=== PATIENT | female | born 1990 | race Caucasian/White ===

== ENCOUNTER → 2017-06-25 15:30 | Outpatient (CLI) | payer OTHER, SELFPAY ==
[2017-06-25 16:06] LABS: Absolute Lymphocyte Count 2.26 X10^3/ul (0.83-4.51); Absolute Neutrophil Count 11.4 X10^3/uL (2.0-7.7); Basophil# 0.04 X10^3/uL; Basophil% 0.3 % (0-1); Eosinophil# 0.36 X10^3/uL; Eosinophils% 2.4 % (0-5); Hemoglobin 13.2 g/dl (12.0-15.0); Lymphocyte # 2.26 X10^3/ul (4.0); Lymphocyte % 15.1 % (19-41); Mean Corp Hgb Conc 33.8 g/gl (32-36); Mean Corpuscular Hgb 29.1 pg (27.0-32.0); Mean Corpuscular Volume 86.1 fL (81-99); Mean Platelet Vol. 10.1 fl (6.2-12.0); Monocyte# 0.84 X10^3/uL; Monocyte% 5.6 % (0-10); Neutrophil # 11.43 X10^3/uL (2.7-7.7); Neutrophil % 76.3 % (47-70); Platelet Count 342 K/mm3 (150-450); RBC Distribution Width CV 13.3 % (11.6-14.6); RBC Distribution Width SD 40.8 fl (35.1-43.9); Red Blood Count 4.53 M/mm3 (4.2-5.4)
[2017-06-25 16:12] LABS: POSITIVE COUNT NO; POSITIVE DIFFERENTIAL NO; POSITIVE MORPHOLOGY NO
[2017-06-25 16:26] LABS: Amphetamine Urine VISTA NEGATIVE (<1000 ng/mL); Barbiturate Urine VISTA NEGATIVE (< 200 ng/mL); Benzodiazepine Urine VISTA NEGATIVE (< 200 ng/mL); Cocaine Urine VISTA NEGATIVE (< 300 ng/mL); Ecstacy Urine VISTA NEGATIVE (< 500 ng/mL); Methadone Urine VISTA NEGATIVE (< 300 ng/mL); PCP Urine VISTA NEGATIVE (< 25 ng/mL); THC Urine VISTA NEGATIVE (< 50 ng/mL); Vista UDS pH Range 5
[2017-06-25 16:36] LABS: Color, Urine Yellow (Yellow); Glucose, Dipstick Normal (Normal); Ketone-Dipstick Negative (Negative); Leukocyte Esterase-Dipstick Negative /ul (Negative); Nitrite-Dipstick Negative (Negative); Occult Blood-Urine Negative /ul (Negative); Protein-Dipstick Negative (Negative); Urine Bilirubin Dipstick Negative (Negative); Urine Clarity Clear (Clear); Urine Urobilinogen Normal (Normal)
[2017-06-25 16:55] LABS: Thyroid Stim Hormone (TSH) 0.87 uIU/mL (0.358-3.74)
[2017-06-26 09:38] LABS: HIV - WCH Non-Reactive (Nonreactive)
[2017-06-27 13:24] LABS: HEPATITIS B SURFACE AG Negative (Negative); Hep C Antibodies <0.1 s/co ratio (0.0-0.9); Toxoplasma Gondii IgG < 3.0 IU/mL (0.0-7.1); Toxoplasma Gondii IgM < 3.0 AU/mL (0.0-7.9)
[2017-06-28 03:48] LABS: Prenatal RPR NONREACTIVE (NONREACTIVE)
== END ==
PROVIDERS: Visit Provider Obstetrics & Gynecology
DX: Z34.81 Encounter for supervision of other normal pregnancy, first trimester (principal); Z3A.00 Weeks of gestation of pregnancy not specified
CPT/HCPCS: 36415; 80307; 81002; 84443; 85025; 86703; 86762; 86777; 86778; 86803; 87340

== ENCOUNTER → 2017-08-19 16:34 | Outpatient (CLI) | payer OTHER, SELFPAY ==
[2017-08-19 17:29] LABS: Hematocrit 37.8 % (37-47); Hemoglobin 12.9 g/dl (12.0-15.0); Mean Corp Hgb Conc 34.1 g/gl (32-36); Mean Corpuscular Hgb 29.9 pg (27.0-32.0); Mean Corpuscular Volume 87.7 fL (81-99); Mean Platelet Vol. 10.3 fl (6.2-12.0); Platelet Count 315 K/mm3 (150-450); RBC Distribution Width CV 12.8 % (11.6-14.6); RBC Distribution Width SD 39.9 fl (35.1-43.9); Red Blood Count 4.31 M/mm3 (4.2-5.4); Scan Indicated on CBC? Y/N NO
== END ==
LOC: LABSPEC 16:35 → WOBLAB 16:36
PROVIDERS: Visit Provider Obstetrics & Gynecology
DX: D72.829 Elevated white blood cell count, unspecified (principal)
CPT/HCPCS: 36415; 85027

== ENCOUNTER → 2017-10-28 16:18 | Outpatient (CLI) | payer OTHER, SELFPAY ==
--- NOTE | 2017-10-28 16:18 | DT_ITS ---
This patient was seen during an EMR downtime October 21, 2017 - October 28, 2017. This patient may have a combination of paper and electronic documentation or all paper documentation. All documentation is viewable within the e-chart portion of [facility] for each patient visit.
[2017-10-28 17:55] LABS: Hematocrit 34.9 % (37-47); Hemoglobin 11.6 g/dl (12.0-15.0); Mean Corp Hgb Conc 33.2 g/gl (32-36); Mean Corpuscular Hgb 29.8 pg (27.0-32.0); Mean Corpuscular Volume 89.7 fL (81-99); Mean Platelet Vol. 10.1 fl (6.2-12.0); Platelet Count 299 K/mm3 (150-450); RBC Distribution Width CV 12.9 % (11.6-14.6); RBC Distribution Width SD 41.8 fl (35.1-43.9); Red Blood Count 3.89 M/mm3 (4.2-5.4); White Blood Count 18.3 K/mm3 (4.4-11.0)
[2017-10-28 18:02] LABS: Scan Indicated on CBC? Y/N NO
[2017-10-28 18:08] LABS: Glucose Challenge Gest 1H 50g 94 mg/dL (70-140)
== END ==
PROVIDERS: Visit Provider Obstetrics & Gynecology
DX: Z34.83 Encounter for supervision of other normal pregnancy, third trimester (principal)
CPT/HCPCS: 36415; 82950; 85027

== ENCOUNTER → 2017-11-11 10:00 | Outpatient (CLI) | payer OTHER, SELFPAY ==
[2017-11-11 11:16] LABS: Absolute Lymphocyte Count 1.64 X10^3/ul (0.83-4.51); Basophil# 0.01 X10^3/uL; Basophil% 0.1 % (0-1); Eosinophil# 0.21 X10^3/uL; Eosinophils% 1.7 % (0-5); Hematocrit 35.1 % (37-47); Hemoglobin 11.7 g/dl (12.0-15.0); Lymphocyte # 1.64 X10^3/ul (4.0); Lymphocyte % 12.9 % (19-41); Mean Corp Hgb Conc 33.3 g/gl (32-36); Mean Corpuscular Hgb 29.7 pg (27.0-32.0); Mean Corpuscular Volume 89.1 fL (81-99); Mean Platelet Vol. 10.3 fl (6.2-12.0); Monocyte# 0.76 X10^3/uL; Neutrophil # 10.04 X10^3/uL (2.7-7.7); Platelet Count 273 K/mm3 (150-450); RBC Distribution Width CV 12.6 % (11.6-14.6); RBC Distribution Width SD 40.6 fl (35.1-43.9); Red Blood Count 3.94 M/mm3 (4.2-5.4); White Blood Count 12.7 K/mm3 (4.4-11.0)
[2017-11-11 11:17] LABS: POSITIVE COUNT NO; POSITIVE DIFFERENTIAL NO; POSITIVE MORPHOLOGY NO
== END ==
PROVIDERS: Visit Provider Obstetrics & Gynecology
DX: Z34.83 Encounter for supervision of other normal pregnancy, third trimester (principal)
CPT/HCPCS: 36415; 85025

== ENCOUNTER → 2017-12-16 16:03 | Outpatient (CLI) | payer OTHER, SELFPAY ==
[2017-12-16 17:43] LABS: Hemoglobin 11.9 g/dl (12.0-15.0); Mean Corpuscular Hgb 30.4 pg (27.0-32.0); Mean Corpuscular Volume 89.3 fL (81-99); Mean Platelet Vol. 10.8 fl (6.2-12.0); Platelet Count 294 K/mm3 (150-450); RBC Distribution Width CV 12.3 % (11.6-14.6); RBC Distribution Width SD 39.2 fl (35.1-43.9); Red Blood Count 3.92 M/mm3 (4.2-5.4)
[2017-12-16 17:48] LABS: Scan Indicated on CBC? Y/N NO
[2017-12-16 18:13] LABS: Protein, Urine (Random) 26.5 mg/dL (<11.9)
[2017-12-16 18:13] LABS: AST(SGOT) 15 U/L (15-37); Alanine Aminotransfer ALT/SGPT 26 U/L (13-56); Albumin, Serum 2.8 g/dL (3.2-5.0); Alkaline Phosphatase 155 U/L (45-117); Bilirubin, Direct 0.06 mg/dL (0.00-0.30); Globulin 4.2 g/dL (2.2-4.2)
[2017-12-16 18:55] LABS: Group B Strep DNA By PCR POSITIVE (Negative); Probe Check PASS
== END ==
PROVIDERS: Visit Provider Obstetrics & Gynecology
DX: Z36.85 Encounter for antenatal screening for Streptococcus B (principal)
CPT/HCPCS: 36415; 80076; 82570; 84156; 85027; 87653

== ENCOUNTER 2018-01-21 07:40 | Inpatient (IN) | payer BC, SELFPAY ==
[2018-01-21 07:11] VITALS: BMI 37.3
[2018-01-21] MEDS: Lactated Ringers 1,000 ML 50 ML IV ×3 (08:40→20:06)
[2018-01-21 08:58] LABS: Hemoglobin 11.9 g/dl (12.0-15.0); Mean Corpuscular Hgb 31.3 pg (27.0-32.0); Mean Corpuscular Volume 89.5 fL (81-99); Mean Platelet Vol. 10.6 fl (6.2-12.0); Platelet Count 260 K/mm3 (150-450); RBC Distribution Width CV 12.8 % (11.6-14.6); RBC Distribution Width SD 41.4 fl (35.1-43.9); Scan Indicated on CBC? Y/N NO; White Blood Count 15.8 K/mm3 (4.4-11.0)
[2018-01-21 09:07] LABS: AST(SGOT) 13 U/L (15-37); Alanine Aminotransfer ALT/SGPT 21 U/L (13-56); EST Glomerular Filtration Rate 128 mL/min (>60); Est Glom Filt Rate - Afr Amer 155 mL/min (>60); Uric Acid 5.1 mg/dL (2.6-6.0)
[2018-01-21 09:10] LABS: LDH 162 U/L (84-246)
[2018-01-21 09:12] LABS: Protein, Urine (Random) 25.1 mg/dL (<11.9); Protein:Creat Ratio 298 mg/g CRE (0-200)
[2018-01-21 09:19] LABS: Partial Thromboplast Time 24.8 Seconds (24.1-36.2); Prothrombin Time (Protime)PT. 13.5 SECONDS (11.7-14.9)
[2018-01-21] MEDS: Oxytocin 30 units/NS 500 ml 30 UNITS/500 ML IV.SOLN IV (10:25)
--- NOTE | 2018-01-21 11:58 | PCM.PN.BLA ---
Progress Note LABOR PROGRESS NOTE Angela notes contractions have intensified with pitocin. She otherwise is without complaints. AVSS, ambulating GEN - NAD, AAO x 3 FHR 130, moderate variability, + accelerations, no decelerations TOCO 4-5/10 min SVE 3/60/-2 per RN exam approximately 10am A/P: 28yo G1 @ 40 4/7wga in latent labor with gestational hypertension, Cat I FHR -Labs reviewed and wnl, presentation c/w gestational HTN -Pitocin started given prior exam unchanged. Continue as tolerated by mother and fetus. -Continue PCN for GBS ppx -Plan for amniotomy if no cervical change 4 hours after initial PCN dosing. -Maternal and statuses overall reassuring
[2018-01-21] MEDS: Nalbuphine 10 MG/ML Ampul IV (15:02)
[2018-01-21] MEDS: fentaNYL-bupivacaine (epidural) 100 ML BAG EPIDURAL (17:56)
--- NOTE | 2018-01-21 17:59 | PCM.PN.BLA ---
Progress Note 40 4/7 wk EGA PIH Induction Epidural placed, More comfortable now. EFM 120- 130 avg variability. Accels noted category I tracing. Ucs q 1-4 mins CX: 4 cm prior to epidural A/P: 40 4/7 wk EGA . Induction for PIH. Continue pitocin Watch progress, tolerance of labor.
[2018-01-21] MEDS: Ondansetron 4 MG/2 ML Vial IV (23:01)
--- NOTE | 2018-01-22 | PLAC_PTH ---
PATIENT: MOSHE SEVERINO LOC: [facility] U#:[id number] AGE/SX: 28/F ROOM: [facility] RE01/21/[address]: Dr. Desirae Berger MD : 1990 BED: 1 DIS: 01/24/2018 SPEC #: [id number] RECD: 01/22/18 13:01 STATUS: PATRICIO REDaisy #: [id number] JOSE: 01/22/18 00:[address]: Desirae Collazo DEPT: SURGICAL PATHOLOGY RECD BY: Ash Mo ENTERED: 01/22/18 13:01 SP TYPE: PLACENTA OTHR DR: Wendy Shea PA-C Tissues: Placenta, NOS Procedures: Surgery Specimen Level V HEADER OPERATION: Vaginal delivery PRE-OP DIAGNOSIS: Thick meconium postdates TISSUE SUBMITTED: Placenta MICROSCOPIC DIAGNOSIS Goode placenta (484 gm): Umbilical cord ? trivascular with no inflammation. Placental membranes ? pigmented macrophages consistent with meconium staining Placental disc ? Harjit-Vamshi change and intervillous congestion. AM:felix 01/24/18 MICROSCOPIC DESCRIPTION Slides are reviewed. GROSS DESCRIPTION SPECIMEN: PLACENTA / CLINICAL INFORMATION: A. Weight: 3.163 kg B. Gestational Age: 40 weeks C. Sex: Female PLACENTAL WEIGHT (POST FIXATION): 484 gm PLACENTAL DIMENSIONS: 18 x 16 x 3 cm PLACENTAL SHAPE: Usual ovoid PLACENTAL WEIGHT FOR GESTATIONAL AGE: Within 10-99th percentile MEMBRANES - Present A. Insertion: Marginal B. Site of rupture from edge: 2 cm from edge of placental disc C. Color of membrane: Goodman-hanson D. Abnormalities: None UMBILICAL CORD ? Present. end is inked black. A. Color: Goodman-hanson B. Insertion: Eccentric C. Length: 47.5 cm D. Diameter: 1.5 cm E. Number of vessels: Three F. Abnormalities: None PLACENTAL DISC - Present A. Color of surface: Goodman-hanson B. surface abnormalities: None C. Maternal cotyledons: Intact with minimal tears D. Attached retro placental clot: No clot E. Cut surface: Dark red and spongy F. Lesions: None G. Separate clot: Absent SECTIONS SUBMITTED: 1. Membrane roll and umbilical cord ( end notched) 2. Placental disc, and maternal surfaces 3. Placental disc, and maternal surfaces 4. Placental disc, and maternal surfaces AM:felix 01/23/18 TC:5 CPT: 16391
[2018-01-22] MEDS: Lactated Ringers 1,000 ML 50 ML IV (01:58)
[2018-01-22] MEDS: Oxytocin 30 units/NS 500 ml 30 UNITS/500 ML IV.SOLN 334 UNITS IV (06:58)
--- NOTE | 2018-01-22 07:04 | PCM.OB.VAG ---
Vaginal Delivery 40 4/7 wk latent labor. PIH vs preeclampsia. Method of Induction: Pitocin, Amniotomy Medical Reason for Induction: Gestational Hypertension Amniotic Membrane Rupture Type: Artificial Amniotic Fluid Description: Clear Final TANVI: 01/17/18 Gestational age: 40 Weeks and 4 Days [place] doctor who attended delivery (if requested by OB): Christen Gannon Date of Procedure: 01/22/18 Pre-Operative Diagnosis: 40 4/7 wk latent labor, PIH Post-Operative Diagnosis: 40 5/7 wk , mild preeclampsia. Thick meconium Surgery/ Procedure Performed: Vacuum Assisted Vaginal Delivery - vacuum assisted descent with three pulls in green zone pressure. Intermittent FHT recovery. Spont vaginal delivery then over midline episiotomy. Type of Anesthesia: Epidural Description of Procedure: Vacuum assisted descent (three pulls in green zone) with full dilation, delgado cath in place and epidural in place. Kiwi vacuum used to assist descent 2/2 FHR in 80-90s. Intermittent recovery and scalp stim noted. Allowed continued pushing. Spont vaginal delivery then over midline episiotomy without extension. Head delivered MARTINEZ. Nuchal cord x one reduced. shoulders delivered easily. Thick meconium and end stage mec also noted. Baby to Dr. Bustillo and RT , nursery nurses for evaluation prior to skin to skin. delgado viable female Ap 9/9 PP exam; midline episiotomy repaired to hemostatic, intact with 3-0 Vicryl. no other lacerations noted Placenta thick mec staining noted. delivered by spont expulsion, expression 3V cord, otherwise normal appearing with mec staining. Intact with trailing membranes. EBL 350 cc Pt and infant tolerated delivery well. to recovery, stable condition Ray Silvio counts correct. Presentation: Vertex, MARTINEZ Placental Delivery Description: Spontaneous, Expressed Placenta Disposition: Routine to Lab Cord Vessel Description: 3 Vessels Nuchal Cord Compression: Without compression Cord Gases drawn per routine: ABG, VBG Cord Entanglement: Around neck x 1, loose Estimated Blood Loss: 350 Infant A gender: Female (1 minute): 9 (5 minute): 9 Episiotomy Description: Midline Laceration: None Medications given after delivery: IV Pitocin Complications: None
--- NOTE | 2018-01-22 07:15 | PCM.DCVAG ---
Discharge Diet: No Restrictions Discharge Activity: May Shower, May Take a Tub Bath May resume sexual activity in: 4-6 weeks Additional Activity Instructions:: Nothing in the vagina for 4-6 weeks. You may return to work/school in 6 weeks. Additional Instructions: If you experience any of the following, contact your healthcare provider. Bleeding that soaks a pad every hour for 2 hours Fever 100.4 or higher Unrelieved abdominal pain Problems urinating (including inability to urinate or burning while urinating). Visual changes Severe headache Flu-like symptoms Pain or redness in one of both of your breasts Pain, warmth, tenderness or swelling in your legs, especially the calf area Frequent nausea and vomiting Symptoms of depression or anxiety If you experience any of the following, call 911 or go to the nearest Emergency Room. Chest pain Problems breathing Seizure activity Partial or complete paralysis of a body part, slurred speech, weakness or drooping of the face, or a sudden inability to walk or hold your balance Allergies/Adverse Reactions: Allergies No Known Allergies Allergy (Verified 01/21/18 07:13) Medications to take at Discharge Aspirin [Aspirin, Baby] 81 mg PO DAILY@0800 01/21/18 Vit Calc,Iron,Folic [ Vitamins] 1 each PO DAILY 01/21/18 Please Follow Up With: Desirae Walton MD - [phone] When: Call to make an appointment with your doctor in 6 weeks. Primary Care Physician: Wendy Shea PA-C [Primary Care Provider] - Test Results: Test results from this visit will be discussed in further detail at your follow-up appointment, if applicable. Proposed Discharge Date: 01/24/18
[2018-01-22] MEDS: Oxytocin 30 units/NS 500 ml 30 UNITS/500 ML IV.SOLN 167 UNITS IV (07:28)
[2018-01-22] MEDS: Silver Nitrate (BKC) 1 EACH TOPICAL (07:42)
[2018-01-22] MEDS: Naproxen 250 MG Tablet PO ×2 (11:21→19:50)
[2018-01-22 11:33] VITALS: BP 138/86; PULSE 106; RESP 20; TEMP 36.7; O2SAT 97
--- NOTE | 2018-01-22 14:35 | NURSING ---
This nursing secretary reviewed the charting completed by Meggan Beltran and it is complete.
[2018-01-22] MEDS: Prenatal Vits Tablet 1 TABLET PO (15:34)
[2018-01-22] MEDS: Acetaminophen 500 MG Tablet PO (15:35)
[2018-01-22 16:00] VITALS: BP 138/88; PULSE 82; RESP 18; TEMP 36.2
[2018-01-22 20:50] VITALS: BP 134/85; PULSE 75; RESP 16; TEMP 36.4; O2SAT 97
[2018-01-23 00:05] VITALS: BP 124/71; PULSE 88; RESP 16; TEMP 36.6; O2SAT 94
[2018-01-23] MEDS: Acetaminophen 500 MG Tablet PO ×3 (00:08→18:26)
[2018-01-23 03:30] VITALS: BP 136/86; PULSE 83; RESP 18; TEMP 36.5; O2SAT 97
[2018-01-23] MEDS: Naproxen 250 MG Tablet PO ×3 (06:00→23:05)
[2018-01-23] MEDS: Senna/Docusate Sodium 1 Tablet PO (06:50)
[2018-01-23 08:18] VITALS: BP 138/92; PULSE 90; RESP 18; TEMP 36.5; O2SAT 97
--- NOTE | 2018-01-23 08:26 | PCM.PN.OB ---
Subjective: No issue overnight. She is sore, but doing well overall. OOB. Lower extremity swelling is improving. Denies headache, vision changes, shortness of breath. Objective: AVSS - Physical Exam General: Alert, Oriented x3, Cooperative, No apparent distress HEENT: Atraumatic, Normocephalic Lungs: Clear to auscultation, Normal air movement Cardiovascular: Regular rate, Regular Rhythm, Normal S1, Normal S2 Abdomen: Soft, Non Tender, Non-Distended, - - Fundus firm and nontender, lochia scant Extremities: No Calf Tenderness, - - +1 b/l LE edema Neurological: Neuro grossly intact Psych/Mental Status: Normal Affect, Appropriate, Alert and oriented to time, place, person, mood and affect Vital Signs Temp Pulse Resp BP Pulse Ox 97.7 F L 90 18 138/92 H 97 01/23/18 08:18 01/23/18 08:18 01/23/18 08:18 01/23/18 08:18 01/23/18 08:18 Oxygen Delivery Method Room Air Weight: 98.5 kg Body Mass Index (BMI) 37.3 Intake and Output for Last 24 Hours 01/21/18 01/22/18 01/23/18 23:59 23:59 23:59 Intake Total 1280 / 1280 5109 / 5109 Output Total 700 / 700 3250 / 3250 Balance 580 / 580 1859 / 1859 Medical Necessity - Tobacco Use Smoking Status: Never smoker Assessment/Plan 28yo PPD#1 s/p VAVD doing well. - A positive, Rubella immune -Routine care - -h/o gHTN vs. preeclampsia - no worsening and BPs remains stable
--- NOTE | 2018-01-23 08:29 | PCM.DCVAG ---
Discharge Diet: No Restrictions Discharge Activity: May Shower, May Take a Tub Bath May resume sexual activity in: 4-6 weeks Additional Activity Instructions:: Nothing in the vagina for 4-6 weeks. You may return to work/school in 6 weeks. Instructions: What Is High Blood Pressure? Additional Instructions: If you experience any of the following, contact your healthcare provider. Bleeding that soaks a pad every hour for 2 hours Fever 100.4 or higher Unrelieved incision or abdominal pain Swelling, redness, discharge or bleeding from your incision or episiotomy site Your incision begins to separate Problems urinating (including inability to urinate or burning while urinating). Visual changes Severe headache Flu-like symptoms Pain or redness in one of both of your breasts Pain, warmth, tenderness or swelling in your legs, especially the calf area Frequent nausea and vomiting Symptoms of depression or anxiety If you experience any of the following, call 911 or go to the nearest Emergency Room. Chest pain Problems breathing Seizure activity Partial or complete paralysis of a body part, slurred speech, weakness or drooping of the face, or a sudden inability to walk or hold your balance Allergies/Adverse Reactions: Allergies No Known Allergies Allergy (Verified 01/21/18 07:13) Medications to take at Discharge Aspirin [Aspirin, Baby] 81 mg PO DAILY@0800 01/21/18 Vit Calc,Iron,Folic [ Vitamins] 1 each PO DAILY 01/21/18 Please Follow Up With: Desirae Walton MD When: 1-2 weeks Please Follow Up With: Desirae Walton MD When: 6 weeks Primary Care Physician: Wendy Shea PA-C [Primary Care Provider] - Test Results: Test results from this visit will be discussed in further detail at your follow-up appointment, if applicable. Proposed Discharge Date: 01/24/18
[2018-01-23] MEDS: Prenatal Vits Tablet 1 TABLET PO (11:58)
--- NOTE | 2018-01-23 13:17 | NURSING ---
assisted the student with the morning assessment and vs. Also helped the student document the results
[2018-01-23 14:00] VITALS: BP 135/57; PULSE 91; RESP 18; TEMP 36.6; O2SAT 97
[2018-01-23 21:55] VITALS: BP 134/74; PULSE 94; RESP 16; TEMP 37.1
[2018-01-24 02:30] VITALS: BP 142/90; PULSE 108; RESP 16; TEMP 37
--- NOTE | 2018-01-24 08:21 | PCM.PN.OB ---
Patient Problems: Active and Suspected Problems Gestational hypertension (Acute) Vacuum extractor delivery, delivered (Acute) Subjective: No issues overnight. Denies headache, vision changes. Infant cluster fed overnight however. Denies heavy lochia. Angela feels well today. Objective: AVSS - Physical Exam General: Alert, Oriented x3, Cooperative, No apparent distress HEENT: Atraumatic, Normocephalic Lungs: Clear to auscultation, Normal air movement Cardiovascular: Regular rate, Regular Rhythm, Normal S1, Normal S2 Abdomen: Soft, Non Tender, Non-Distended, - - Fundus firm and nontender Extremities: No Calf Tenderness, - - trace b/l LE edema Neurological: Neuro grossly intact Psych/Mental Status: Normal Affect, Appropriate, Alert and oriented to time, place, person, mood and affect Vital Signs Temp Pulse Resp BP Pulse Ox 98.6 F 108 H 16 142/90 H 97 01/24/18 02:30 01/24/18 02:30 01/24/18 02:30 01/24/18 02:30 01/23/18 14:00 Oxygen Delivery Method Room Air Weight: 98.5 kg Body Mass Index (BMI) 37.3 Intake and Output for Last 24 Hours 01/22/18 01/23/18 01/24/18 23:59 23:59 23:59 Intake Total 5109 / 5109 Output Total 3250 / 3250 Balance 1859 / 1859 Medical Necessity - Tobacco Use Smoking Status: Never smoker Assessment/Plan All Active Problems Gestational hypertension (Acute) Vacuum extractor delivery, delivered (Acute) 28yo PPD#2 s/p VAVD doing well. - A positive, Rubella immune -Routine care - -h/o gHTN vs. preeclampsia - no worsening and BPs remains stable -de home today
[2018-01-24] MEDS: Naproxen 250 MG Tablet PO (10:08)
[2018-01-24] MEDS: Prenatal Vits Tablet 1 TABLET PO (10:09)
[2018-01-24] MEDS: Senna/Docusate Sodium 1 Tablet PO (10:49)
[2018-01-24 10:57] LABS: Pathology Specimen OB SEE PATHOLOGY REPORT
== END 2018-01-24 12:45 | disposition home or self-care (01) | DRG 775 ==
LOC: WPOUT 07:45
PROVIDERS: Obstetrics & Gynecology; Admitting Provider Obstetrics & Gynecology; Family Provider Family Medicine; PCP Family Medicine; Visit Provider Obstetrics & Gynecology
DX: O14.94 Unspecified pre-eclampsia, complicating childbirth (principal); O13.4 Gestational [pregnancy-induced] hypertension without significant proteinuria, complicating childbirth; O99.824 Streptococcus B carrier state complicating childbirth; O69.81X0 Labor and delivery complicated by cord around neck, without compression, not applicable or unspecified; O77.0 Labor and delivery complicated by meconium in amniotic fluid; Z3A.40 40 weeks gestation of pregnancy; Z37.0 Single live birth
CPT/HCPCS: 59025; 59050; 82565; 82570; 83615; 84156; 84450; 84460; 84550; 85027; 85610; 85730; 86850; 86900; 88307; 99218; J7120; G0378; J2405

== ENCOUNTER 2018-03-06 19:28 | Outpatient (CLI) | payer BC, SELFPAY | END 2018-03-06 20:50 | disposition home or self-care (01) | LOC: WPOUT 19:39 → WP 19:41 | PROVIDERS: Family Provider Family Medicine; PCP Family Medicine; Referring Provider Obstetrics & Gynecology; Visit Provider Obstetrics & Gynecology | DX: Z39.1 Encounter for care and examination of lactating mother (principal) | CPT/HCPCS: 96152 ==

== ENCOUNTER → 2018-07-11 13:58 | Outpatient (CLI) | payer OTHER, SELFPAY ==
[2018-07-11 17:02] LABS: Chlamydia Trachomatis by PCR Negative (Negative); Neisserai gonorrhoeae by PCR Negative (Negative); Probe Check PASS; Sample Adequacy Control PASS; Specimen Processing Control PASS
== END ==
PROVIDERS: Visit Provider Obstetrics & Gynecology
DX: Z11.3 Encounter for screening for infections with a predominantly sexual mode of transmission (principal)
CPT/HCPCS: 87491; 87591

== ENCOUNTER → 2018-07-24 16:21 | Outpatient (CLI) | payer OTHER, SELFPAY ==
[2018-07-24 17:19] LABS: Absolute Neutrophil Count 10.1 X10^3/uL (2.0-7.7); Basophil# 0.03 X10^3/uL; Basophil% 0.2 % (0-1); Eosinophil# 0.32 X10^3/uL; Eosinophils% 2.4 % (0-5); Hemoglobin 12.8 g/dl (12.0-15.0); Lymphocyte % 17.3 % (19-41); Mean Corp Hgb Conc 32.8 g/gl (32-36); Mean Corpuscular Hgb 29.4 pg (27.0-32.0); Mean Corpuscular Volume 89.4 fL (81-99); Mean Platelet Vol. 10.2 fl (6.2-12.0); Monocyte# 0.51 X10^3/uL; Monocyte% 3.8 % (0-10); Neutrophil # 10.06 X10^3/uL (2.7-7.7); Platelet Count 313 K/mm3 (150-450); RBC Distribution Width SD 41.8 fl (35.1-43.9); Red Blood Count 4.36 M/mm3 (4.2-5.4); White Blood Count 13.3 K/mm3 (4.4-11.0)
[2018-07-24 17:38] LABS: Color, Urine Yellow (Yellow); Glucose, Dipstick Normal (Normal); Ketone-Dipstick 5 mg/dl (Negative); Leukocyte Esterase-Dipstick Negative /ul (Negative); Nitrite-Dipstick Negative (Negative); Occult Blood-Urine 10 /ul (Negative); Protein-Dipstick Negative (Negative); Urine Bilirubin Dipstick Negative (Negative); Urine Clarity Clear (Clear); Urine Urobilinogen Normal (Normal)
[2018-07-24 17:47] LABS: Amphetamine Urine VISTA NEGATIVE (<1000 ng/mL); Barbiturate Urine VISTA NEGATIVE (< 200 ng/mL); Benzodiazepine Urine VISTA NEGATIVE (< 200 ng/mL); Cocaine Urine VISTA NEGATIVE (< 300 ng/mL); Ecstacy Urine VISTA NEGATIVE (< 500 ng/mL); Methadone Urine VISTA NEGATIVE (< 300 ng/mL); PCP Urine VISTA NEGATIVE (< 25 ng/mL); THC Urine VISTA NEGATIVE (< 50 ng/mL); Vista UDS pH Range 6
[2018-07-24 18:05] LABS: POSITIVE COUNT NO; POSITIVE DIFFERENTIAL NO; POSITIVE MORPHOLOGY NO
[2018-07-24 18:42] LABS: HIV - WCH Non-Reactive (Nonreactive); Rubella IgG 63.3 IU/mL; Vitamin D,25 Hydroxy 21.4 ng/mL (29.95-100.01)
[2018-07-25 01:32] LABS: Prenatal RPR NONREACTIVE (NONREACTIVE)
[2018-07-28 11:41] LABS: HEPATITIS B SURFACE AG Negative (Negative); Hep C Antibodies 0.2 s/co ratio (0.0-0.9)
== END ==
PROVIDERS: Visit Provider Obstetrics & Gynecology
DX: Z34.81 Encounter for supervision of other normal pregnancy, first trimester (principal)
CPT/HCPCS: 36415; 80307; 81002; 82306; 84443; 85025; 86703; 86762; 86803; 87340

== ENCOUNTER → 2018-12-19 14:29 | Outpatient (CLI) | payer OTHER, SELFPAY ==
[2018-12-19 16:36] LABS: Hematocrit 35.5 % (37-47); Hemoglobin 11.9 g/dL (12.0-15.0); Mean Corp Hgb Conc 33.5 g/dL (32-36); Mean Corpuscular Hgb 30.8 pg (27.0-32.0); Mean Platelet Vol. 10.4 fl (6.2-12.0); Platelet Count 267 K/mm3 (150-450); RBC Distribution Width SD 42.9 fl (35.1-43.9); Red Blood Count 3.86 M/mm3 (4.2-5.4); White Blood Count 15.3 K/mm3 (4.4-11.0)
[2018-12-19 16:41] LABS: Glucose Challenge Gest 1H 50g 76 mg/dL (70-140)
== END ==
PROVIDERS: Visit Provider Obstetrics & Gynecology
DX: Z34.83 Encounter for supervision of other normal pregnancy, third trimester (principal); Z3A.00 Weeks of gestation of pregnancy not specified
CPT/HCPCS: 36415; 82306; 82950; 85027

== ENCOUNTER 2019-03-03 06:00 | Inpatient (IN) | payer OTHER, SELFPAY ==
[2019-03-03 05:26] VITALS: BMI 39.2
[2019-03-03 05:49] LABS: ROM Internal Control Test YES-OK TO RESULT pt. (Internal QC)
[2019-03-03 05:51] LABS: ROM Patient Test POSITIVE (Negative); Record Kit Lot#, ROM+ J8255
[2019-03-03] MEDS: Lactated Ringers 1,000 ML 50 ML IV (06:42)
[2019-03-03 06:57] LABS: Absolute Lymphocyte Count 2.09 X10^3/uL (0.83-4.51); Absolute Neutrophil Count 11.1 X10^3/uL (2.0-7.7); Basophil# 0.02 X10^3/uL; Basophil% 0.1 % (0-1); Eosinophil# 0.12 X10^3/uL; Eosinophils% 0.8 % (0-5); Hematocrit 34.8 % (37-47); Hemoglobin 11.7 g/dL (12.0-15.0); Lymphocyte # 2.09 X10^3/ul (4.0); Lymphocyte % 14.6 % (19-41); Mean Corp Hgb Conc 33.6 g/dL (32-36); Mean Corpuscular Volume 89.2 fL (81-99); Mean Platelet Vol. 10.5 fl (6.2-12.0); Monocyte# 0.97 X10^3/uL; Monocyte% 6.8 % (0-10); NRBC Flagged by Analyzer 0 % (0-5); Neutrophil # 11.08 X10^3/uL (2.7-7.7); Neutrophil % 77.1 % (47-70); Platelet Count 234 K/mm3 (150-450); RBC Distribution Width CV 12.5 % (11.6-14.6); RBC Distribution Width SD 40.4 fl (35.1-43.9); White Blood Count 14.4 K/mm3 (4.4-11.0)
--- NOTE | 2019-03-03 08:34 | PCM.HP.BLA ---
History and Physical Date of Admission: 03/03/19 [facility] [place]YSICAL (03/03/2019) Name: ANGELA SEVERINO OB Physician: ERNIE Adams's Physician: Dr. Jenny Coto ...................................................................... : 1990 Age: 29 Address: [address] [place] [address] Phone: (h) [phone] Insurance Carrier: [facility] [id number] Emergency Contact: PARVEZ SEVERINO [phone] ...................................................................... Final TANVI: 03/07/19 By Ultrasound: 5 weeks 6 days Angela is a 29yo at 39w3d gestation per 5w6d US who presents for PROM; pt states she experienced a gush of clear fluid at approx 0200 this morning; she states active FM, denies UCs, or VB; has been remarkable for GHTN and GERD; she is GBS+ PARITY: (G-Total Pregnancies P-Fullterm,Premature,Induced AB,Spont AB, Ectopics, Multiple,Living) TANVI CONFIRMATION: By LMP: 05/21/18 Initial Exam: 02/25/19 By First Ultrasound Exam: 03/07/19 Final TANVI: 03/07/19 BLOOD TYPE: AFP: 1 HR PG: GBS: Rublla titer (>10 immune)-- Hepatatis B liz AG-- CULTURES:-- OB PROBLEM LIST: EPDS = 9 GBS pos gHTN v preeclampsia first Hx of GERD msAFP and CF testing declined Short interval between pregnancies ALLERGIES: No Known Allergies MEDICATIONS: aspirin 81 mg chewable tablet 1 PO QD PreNata 29 mg iron-1 mg chewable tablet Vitamin D3 5,000 unit tablet one tab PO daily SOCIAL HISTORY: Smoking - Never Alcohol Use - denies drinking Diet - no special diet Lifestyle - Exercise - none Employer - [employer] 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 Illicit Drug Use - denies use of street drugs Sexual Activity - and [employer] Residence - lives with Place of - [place], [place] Hours Worked - 30 hrs/week Spouse-Sig Other Name - Parvez Spouse-Sig Other Occupation - jigger operator Spouse-Sig Other Phone No - [phone] Children Name(s) - Perla PRIOR DELIVERY HISTORY DEL DATE GEST LAB WT LB WT OZ TYPE ANES LABOR TX 05 Sep 18 40 24 7 0 Vag Epidural No ANTEPARTUM FLOW CHART VISIT GE RTC FU F F NE U U DATE WK MD WKS HT PN HR M SS BP ED WT NE GL D EF ST __ ____ ___ __ __ ___ __ __ __ ___ __ __ __ ___ __ 11 Feb 38 SHM 1 39 + + 120/82 sl 228 tr - 1+ 50 -3 04 Feb 37 SHM 1 38 V + + 110/70 sl 225 tr - 1+ 50 -3 27 Sep 36 SHM 1 37 v + + 114/82 0 226 tr - 1 50 -3 19 Sep 35 SHM 1 36 V + + 126/70 sl 227 tr - 06 Sep 33 SHM 2 34 + + 120/90 sl 224 tr - 19 Jan 17 SHM 3 31 + + 112/70 0 223 tr - 02 Jan 14 SHM 2 28 ? + + 110/72 0 224 - - 08 Dec 11 JMW 3 25 + + 138/76 0 221 - - 07 Nov 06 ELB 4 - B U+ + 120/90 0 218 - - 03 October 01 DS 4 16 + + 112/64 0 217 - - 05 Aug 28 DS 4 U+ US 118/64 219 - - 07 Jul 24 SHM 4 on o 128/80 0 226 - - ANTEPARTUM NOTE(S): Feb 27 2019: feeling well. cxs on and off. Cervix check. Feb 20 2019: doing well, occ contractions Feb 13 2019: doing well, GBS today and LARC Feb 05 2019: feeling well. Jan 23 2019: feeling well. Jan 05 2019: doing well, questions about domperidone Dec 19 2018: feeling well. Nov 24 2018: Glucola/Instructions Given,Good FM,Feeling Well Oct 24 2018: feeling well. Sep 19 2018: doing well, declines AFP Aug 22 2018: No problems Jul 24 2018: US, NOB, PNV. Daily nausea. COMPREHENSIVE ANTEPARTUM NOTE(S): Feb 20 2019: GBS positive. Discussed r/b induction of labor at 39+ wga. Pt considering, f/u next visit. Feb 16 2019: H taken to OB. tkg Feb 05 2019: Growth US for no maternal weight gain - EFW 2581g (32nd%), FATOU 14cm. Plan for reduced work hours - note for 8h days given. Jan 23 2019: Si/sx preeclampsia reviewed, pt denies. Rpt BP elevated 120/90 also. Preeclamptic labs today. Jan 05 2019: Feeling well, reports active FM, denie VB, LOF, RUQ pain, LAWSON or isual disturbance; continues on asa 81mg; Discussed s/s PTL, s/s elevated BPs to report; Dr. Walton discussed folow up growth scan at approx 36 weeks, and waiting to use Domperidone until after milk has come in following . Oct 24 2018: Allergies. Reviewed OTC products to take prn for these. Claritin, sudafed. Zyrtec, Elis. May also try Nasonex nasal spray. RTO in 4 wk for PNV. Baby breech. Not all structures seen on sono. Plan repeat sono at 28-30 wk for repeat views. EB Oct 03 2018: Angela is here for a FHT check at 17 w 6 d. Concerned that she as not felt any movement for two days, and that she had been feeling a lot of flutters before that. FHT's 140's-150's noted with Jay today, near midline. Angela denies spotting/cramping/leaking fluid. Discussed that she may not feel regular FM for several more week, and she states that she understands and feels much better having heard FHT's today. AW Sep 19 2018: Doing well. No bleeding. Normal heart beat today. Anatomical US next visit. Aug 22 2018: Reviewed labs today. Vitamin D level low. Will start supplements. rh+. Will start baby aspirin second trimester. Jul 24 2018: Angela is here for her NOB visit at 7 w 5 d, she is a A1 with an TANVI of 03/07/2019. She has had here US today, and will see Dr. Nathan Berger for a PNV and have labs drawn today as well. , Parvez, accompanies her today, and he appears supportive. They have a 5 month old daughter who was delivered at [facility]. Past history updated. Delivery at [facility] is planned with an epidural, and she will breastfeed. She states that she is still nursing her daughter, but is preparing to wean. Practice patterns reviewed, including labs being collected today. Emergencies/danger signs to report, round ligament pain, reporting s/s of a UTI, and common OTC medications approved/not approved for reviewed. She is a life long non-smoker, and denies use of drugs or ETOH. Genetic Screening form complete. MSAFP and CF testing declined, consent signed as such. EPDS = 9. Denies hx of depression/anxiety. Angela takes an OTC vitamin containing DHA and tolerates this well. She reports daily nausea, and that she has vomited a few times. Reviewed measures that may help minimize nausea, including small frequent meals with protein included throughout the day, adequate water hydration of at least one gallon per 24 hours, Vitamin B6, and Unisom at bedtime She states that she is leery of taking Unisom as her daughter is still so young, and she does not want to sleep and not hear her. Angela eats a generally well balanced diet and is working on drinking more water, Reviewed caloric needs, recommended weight gain, limiting empty calories, and limiting caffeine to one cup a day. Printed guide for food safety during provided with review. Encouraged recommended physical activity, ad she states that when she feels better and the weather improves, she will take her daughter for walks several times a week. Kegel exercises reviewed. Lifting restrictions discussed. Angela has no questions following NOB viist, and states understanding of all information provided during same. AW New Jul 11 2018: Angela is here today for missed menses appointment. Patient is a . Patient states that lmp is 05/21/2018 making her 8 wks with Tanvi of 02/2019 Patient states that she has mild nausea, breast tenderness and fatigue. She states that she continues with breast feeding but is supplementing due to low production. Patient asking if she needs to stop breast feeding or if ok to continue. SHe does have supplement called Mcgarry Cow milk production supplement she is asking if ok to take while as she states that she has stopped her other two supplements. was not planned but patient and happy. Patient has h/o normal pap's with most recent pap in 2017. No pap due at today's visit. Gc/Ct cultures today. Educational materials provided and reviewed with patient. carson Jul 11 2018: as above. Presents with , Parvez, and infant daughter, Perla, who is 5 months (born 01/22/2018). Angela relates anxiety about this since they are so closely spaced and this was unplanned. She is sleeping well with no more than 1-2 awakenings overnight for her infant. Planned travel to [facility] in November. No plans for overseas travel, no hobbies of concern. She is nursing and desires to continue. [facility] Apr 09 2018: Angela is here today for concerns regarding vaginal discomfort and pressure she has been having. Patient states that she started with first menses since her delivery 04/05/2018 and states that she started using tampons at that time. Patient states that she has noticed the sx since using the tampons. Patient staets that she has no fevers. Jlb Long dip done in office, leuk, nitrite, urobinlinogen and protein-neg, pH-5/6, blood-large, sp gravity-1020, ketones, bilirubin and glucose-neg. Patient does state that she is still on her menses from last weekend just light bleeding. [facility] Apr 09 2018: as above. Presents 10 weeks with vaginal pressure. She is concerned about a possible prolapse. Denies itching, burning, discharge. E. Lopez is uncomfortable at times, but denies sense of obstruction or significant pain. Denies urinary retention or overflow sx, denies constipation. Thinks she may have some dryness after using tampons for this menses. [facility] Mar 10 2018: Angela is here today for her 6 wk pp visit. Patient had a vacuum assisted vaginal delivery 01/22/2018 baby girl. States that she and baby are doing good. Patient is breast feeding and supplementing as needed. Baby has been following with peds for wt checks. Patient states that she has had no menses since delivery. Patient has h/o normal pap's with most recent pap in 2017. No pap due a today's visit. Patient states that she feels BP's have been doing well as she denies any headaches, vision changes or concerns regarding elevated BP's. Patient BP wnl at today's visit. Patient denies any other questions or concerns at this time. jlb REVIEW OF SYSTEMS: GENERAL - Denies fever, or chills SKIN - Denies rash, new skin lesions, or change in moles EYES - Denies blurred vision, or change in visual acuity EARS - Denies ear pain, or difficulty hearing NOSE - Denies nasal congestion, discharge, or bleeding MOUTH - Denies sore throat, or difficulty swallowing NECK - Denies pain or swelling RESPIRATORY - Denies shortness of breath, cough, wheezing CARDIOVASCULAR - Denies palpitations, chest pain, orthopnea, PND, peripheral edema, syncope or claudication GASTROINTESTINAL - Denies nausea, vomiting, diarrhea, constipation, Denies abdominal pain, melena and or bright red blood GENITOURINARY - Denies dysuria, frequency of urination, urgency, or hesitancy MUSCULOSKELETAL - Denies joint or muscle pain, or back pain NEUROLOGICAL - Denies localized numbness, weakness, or tingling PSYCHIATRIC - Denies depression, anxiety, substance abuse or suicide attempts ENDOCRINE - Denies heat or cold intolerance, weight loss or gain, increasing thirst HEMATO-IMMUNOLOGIC - Denies easy bruising, bleeding, oral ulcerations or recurrent infections GENETICS SCREENING: Age 35+ years: No Thalassemia: No Neural Tube Defect: No Down Syndrome: No TOMAS-SACHS: No Sickle Cell Disease: No Hemophilia: No Musc. Dystrophy: No Cystic Fibrosis: No-declines screening [place] Chorea: No Mental Retardation: No Fragile X: No Other genetic: No Other defects: No SABs/still births: No Drugs since LMP: No INFECTION HISTORY: High risk AIDS: No High risk Hepatitis: No Exposed to TB: No Exposed to Herpes: No Rash/viral illness since LMP: No History of STD: No MENSTRUAL HISTORY: *Menses Amount/Duration: 5-7 daysMenses Regularity: irregularFrequency: variableMenarche (Age Onset): 14* PAST SUMMARY: PARITY: 1. Total Pregnancies............ 3 2. Full Term Pregnancies........ 1 3. Premature.................... 0 4. Abortions - Induced.......... 0 5. Abortions - Spontaneous...... 1 6. Ectopics..................... 0 7. Multiple Births.............. 0 8. Living Children.............. 1 PAST #1: Date of :.................. 01/22/18 Gestation Weeks:................ 40 Length of labor(hours):......... 24 Sex:............................ F Weight-lbs:............... 7 Weight-oz:................ 0 Type of Delivery:............... Vag Type of Anesthesia:............. Epidural Place of Delivery:.............. [facility] Treatment of Labor?:.... No Comment: AUGMENT, GHTN V PI Labs for : ANGELA SEVERINO since 06/10/2018 ORDER DATEIN DESCRIPTION VALUE UNITS RANGE A+ COMMENT TYPE AND SCREEN 03/03/19 Reason for Type AND Screen/Red Cells: Labor [facility]~[address] [place], [address]~ BLOOD TYPE GEL A POSITIVE N ANTIBODY SCREEN NEGATIVE N CBC W/DIFF, AUTOMATED 03/03/19 NOTE Original Ordering Provider: Elie Raines WBC 14.4 K/mm3 4.4-11.0 H RBC 3.90 M/mm3 4.2-5.4 L HGB 11.7 g/dL 12.0-15.0 L HCT 34.8 % 37-47 L MCV 89.2 fL 81-99 MCH 30.0 pg 27.0-32.0 MCHC 33.6 g/dL 32-36 RDW CV 12.5 % 11.6-14.6 RDW SD 40.4 fl 35.1-43.9 PLT 234 K/mm3 150-450 MPV 10.5 fl 6.2-12.0 NEUT% 77.1 % 47-70 H LY% 14.6 % 19-41 L MONO% 6.8 % 0-10 EO% 0.8 % 0-5 BASO% 0.1 % 0-1 IM GRAN % 0.600 % 0.0-0.9 IG% - Immature Granulocytes (promyelocytes, myelocytes and metamyelocytes) > 1% indicates that a LEFT SHIFT is Present. ABSOLUTE NEUT 11.1 X10 3/uL 2.0-7.7 H ABSOLUTE LYMPH 2.09 X10 3/uL 0.83-4.51 NRBC, FLAGGED 0 % 0-5 (ROM) RUPTURE OF MEMBRANES 03/03/19 NOTE Original Ordering Provider: Elie Raines ROM POSITIVE Negative H Amniotic fluid present indicates rupture of Membranes. RESULTS CALLED TO LUIS GIBSON 03/03/19 0550 Sole Song. REPORT READ BACK BY SAME . STREP GP B REBECCA 02/13/19 STREP GP B REBECCA Positive Negative A Centers for Disease Control and Prevention (CDC) and [place] [employer] Gynec[employer] (ACOG) guidelines for prevention of group B streptococcal (GBS) disease specify co-collection of a vaginal and rectal swab specimen to maximize sensitivity of GBS detection. Per the CDC and ACOG, swabbing both the lower vagina and rectum substantially increases the yield of detection compared with sampling the vagina alone. . Penicillin G, ampicillin, or cefazolin are indicated for intrapartum prophylaxis of GBS colonization. Reflex susceptibility testing should be performed prior to use of clindamycin only on GBS isolates from penicillin-allergic women who are considered a high risk for anaphylaxis. Treatment with vancomycin without additional testing is warranted if resistance to clindamycin is noted. Reviewed by DESIRAE URIC BRAD 01/23/19 URIC ACID 5.1 mg/dL 2.5-7.1 Therapeutic target for gout patients: <6.0 PROT+CREATU (RANDOM) 01/23/19 CREATININE, URINE 135.7 mg/dL Not Estab. PROTEIN,TOTAL,URINE 30.0 mg/dL Not Estab. PROTEIN/CREAT RATIO 221 mg/g creat 0-200 H COMP. METABOLIC PANEL (14) 01/23/19 GLUCOSE 102 mg/dL 65-99 H BUN 5 mg/dL 6-20 L CREATININE 0.52 mg/dL 0.57-1.00 L EGFR IF NONAFRICN AM 131 mL/min/1.73 >59 EGFR IF AFRICN AM 151 mL/min/1.73 >59 BUN/CREATININE RATIO 10 9-23 SODIUM 138 mmol/L 134-144 POTASSIUM 3.6 mmol/L 3.5-5.2 CHLORIDE 102 mmol/L 96-106 CARBON DIOXIDE, TOTAL 20 mmol/L 20-29 CALCIUM 9.2 mg/dL 8.7-10.2 PROTEIN, TOTAL 6.4 g/dL 6.0-8.5 ALBUMIN 3.6 g/dL 3.5-5.5 GLOBULIN, TOTAL 2.8 g/dL 1.5-4.5 A/G RATIO 1.3 1.2-2.2 BILIRUBIN, TOTAL 0.2 mg/dL 0.0-1.2 ALKALINE PHOSPHATASE 139 IU/L 39-117 H AST (SGOT) 13 IU/L 0-40 ALT (SGPT) 14 IU/L 0-32 CBC/DIFF AMBIGUOUS DEFAULT 01/23/19 WBC 13.6 x10E3/uL 3.4-10.8 H RBC 4.01 x10E6/uL 3.77-5.28 HEMOGLOBIN 12.1 g/dL 11.1-15.9 HEMATOCRIT 34.7 % 34.0-46.6 MCV 87 fL 79-97 MCH 30.2 pg 26.6-33.0 MCHC 34.9 g/dL 31.5-35.7 RDW 12.4 % 12.3-15.4 PLATELETS 289 x10E3/uL 150-450 NEUTROPHILS 76 % Not Estab. LYMPHS 15 % Not Estab. MONOCYTES 7 % Not Estab. EOS 1 % Not Estab. BASOS 0 % Not Estab. IMMATURE CELLS NEUTROPHILS (ABSOLUTE) 10.3 x10E3/uL 1.4-7.0 H LYMPHS (ABSOLUTE) 2.0 x10E3/uL 0.7-3.1 MONOCYTES(ABSOLUTE) 1.0 x10E3/uL 0.1-0.9 H EOS (ABSOLUTE) 0.2 x10E3/uL 0.0-0.4 BASO (ABSOLUTE) 0.0 x10E3/uL 0.0-0.2 IMMATURE GRANULOCYTES 1 % Not Estab. IMMATURE GRANS (ABS) 0.1 x10E3/uL 0.0-0.1 NRBC HEMATOLOGY COMMENTS: A hand-written panel/profile was received from your office. In accordance with the [facility] Ambiguous Test Code Policy dated November 2002, we have assigned CBC with Differential/Platelet, Test Code #875670 to this request. If this is not the testing you wished to receive on this specimen, please contact the [facility] Client Inquiry/ Technical Services Department to clarify the test order. We appreciate your business. ARRON SPENCE CMP14 DEFAULT 01/23/19 ARRON MABRY CMP14 DEFAULT A hand-written panel/profile was received from your office. In accordance with the [facility] Ambiguous Test Code Policy dated November 2002, we have completed your order by using the closest currently or formerly recognized AMA panel. We have assigned Comprehensive Metabolic Panel (14), Test Code #197668 to this request. If this is not the testing you wished to receive on this specimen, please contact the [facility] Client Inquiry/Technical Services Department to clarify the test order. We appreciate your business. Reviewed by DESIRAE VITAMIN D,25 HYDROXY 12/19/18 NOTE Original Ordering Provider: Desirae Walton VITAMIN D 25-OH 34.0 ng/mL 29.95-100.01 Vitamin D 25(OH) Status Range Deficiency <20 ng/mL (50nmol/L) Insufficiency 20 - 30 ng/mL (50 - 75 nmol/L) Sufficiency 30 - 100 ng/mL (75 - 250 nmol/L) Toxicity >100 ng/mL (>250 nmol/L) Reviewed by DESIRAE GLUCOSE CHALLENGE GEST 1H 50G 12/19/18 NOTE Original Ordering Provider: Desirae Walton GLU GEST 50G 1H 76 mg/dL 70-140 Reviewed by DESIRAE CBC-COMPLETE BLOOD CNT NO DIFF 12/19/18 NOTE Original Ordering Provider: Desirae Walton WBC 15.3 K/mm3 4.4-11.0 H RBC 3.86 M/mm3 4.2-5.4 L HGB 11.9 g/dL 12.0-15.0 L HCT 35.5 % 37-47 L MCV 92.0 fL 81-99 MCH 30.8 pg 27.0-32.0 MCHC 33.5 g/dL 32-36 RDW CV 13.0 % 11.6-14.6 RDW SD 42.9 fl 35.1-43.9 PLT 267 K/mm3 150-450 MPV 10.4 fl 6.2-12.0 Reviewed by DESIRAE HEPATITIS C ANTIBODIES 07/24/18 NOTE Original Ordering Provider: Desirae Walton HEP C AB 0.2 s/co ratio 0.0-0.9 Negative: < 0.8 Indeterminate: 0.8 - 0.9 Positive: > 0.9 The CDC recommends that a positive HCV antibody result be followed up with a HCV Nucleic Acid Amplification test (190374). Reviewed by DESIRAE HEPATITIS B SURFACE AG 07/24/18 NOTE Original Ordering Provider: Desirae Walton HB SURF AG Negative Negative Performed at: [facility] [id number] Child Welfare Director: Ramsey Geller PhD, Phone: [phone] Reviewed by DESIRAE RPR 07/24/18 NOTE Original Ordering Provider: Desirae Walton RPR NONREACTIVE NONREACTIVE Reviewed by DESIRAE T AND S-NO CHARGE W/PNP 07/24/18 Reason for Type AND Screen/Red Cells: Surgery? N [facility]~[address] [place], [address]~ BLOOD TYPE GEL A POSITIVE N AB SCREEN GEL NEGATIVE N Reviewed by DESIRAE HIV - [facility] 07/24/18 NOTE Original Ordering Provider: Desirae Walton HIV - [facility] Non-Reactive Nonreactive Reviewed by DESIRAE RUBELLA IGG 07/24/18 NOTE Original Ordering Provider: Desirae Walton RUBELLA IGG 63.3 IU/mL Antibody results Interpretation of Immune Status < 5 IU/ml Presumed Non-immune 5 - < 10 IU/ml Equivocal > or = 10 IU/ml Presumed Immune Reviewed by DESIRAE VITAMIN D,25 HYDROXY 07/24/18 NOTE Original Ordering Provider: Desirae Walton VITAMIN D 25-OH 21.4 ng/mL 29.95-100.01 L Vitamin D 25(OH) Status Range Deficiency <20 ng/mL (50nmol/L) Insufficiency 20 - 30 ng/mL (50 - 75 nmol/L) Sufficiency 30 - 100 ng/mL (75 - 250 nmol/L) Toxicity >100 ng/mL (>250 nmol/L) Reviewed by DESIRAE CBC W/DIFF, AUTOMATED 07/24/18 NOTE Original Ordering Provider: Desirae Walton WBC 13.3 K/mm3 4.4-11.0 H RBC 4.36 M/mm3 4.2-5.4 HGB 12.8 g/dl 12.0-15.0 HCT 39.0 % 37-47 MCV 89.4 fL 81-99 MCH 29.4 pg 27.0-32.0 MCHC 32.8 g/gl 32-36 RDW CV 13.0 % 11.6-14.6 RDW SD 41.8 fl 35.1-43.9 PLT 313 K/mm3 150-450 MPV 10.2 fl 6.2-12.0 NEUT% 76.0 % 47-70 H LY% 17.3 % 19-41 L MONO% 3.8 % 0-10 EO% 2.4 % 0-5 BASO% 0.2 % 0-1 IM GRAN % 0.300 % 0.0-0.9 IG% - Immature Granulocytes (promyelocytes, myelocytes and metamyelocytes) > 1% indicates that a LEFT SHIFT is Present. ABSOLUTE NEUT 10.1 X10 3/uL 2.0-7.7 H ABSOLUTE LYMPH 2.30 X10 3/ul 0.83-4.51 Reviewed by DESIRAE URINALYSIS, ROUTINE (DIPSTICK) 07/24/18 NOTE Original Ordering Provider: Desirae Walton COLOR Yellow Yellow CLARITY Clear Clear GLUCOSE, UR Normal mg/dl Normal BILIRUBIN URINE Negative mg/dL Negative KETONE UR 5 mg/dl Negative H SP.GR. DIPSTX 1.020 1.002-1.030 PH UR 6.0 5.0 - 8.0 PROT DIPSTX Negative mg/dl Negative UROBILI Normal mg/dl Normal NITRITE UR Negative Negative OCCULT BLOOD-UR 10 /ul Negative H LEUK ESTERASE Negative /ul Negative Reviewed by DESIRAE URINE DRUG SCREEN (VISTA) 07/24/18 NOTE Original Ordering Provider: Desirae Walton TO BE CONFIRMED CONFIRMATORY TESTING FOR ALL POSITIVE URINE DRUG SCREEN RESULTS WILL ONLY BE SENT OUT UPON PHYSICIAN ORDER. ABRIL Urine Drug Screen methods provide only preliminary analytical test results. A more specific alternate chemical method must be used in order to obtain a confirmed analytical result. Gas chromatography/mass spectrometery (GC/MS) is the preferred confirmatory method. Clinical consideration and professional judgement should be applied to any drug of abuse test result, particularly when preliminary positive results are used. URINE TCA TESTING MUST BE ORDERED SEPARATELY. USE TEST MNEMONIC: [place] UDS PH 6 AMPHETAMINES NEGATIVE <1000 ng/mL BARBITIURATES NEGATIVE < 200 ng/mL BENZODIAZIPINE NEGATIVE < 200 ng/mL COCAINE NEGATIVE < 300 ng/mL ECSTACY NEGATIVE < 500 ng/mL METHADONE NEGATIVE < 300 ng/mL OPIATES NEGATIVE < 300 ng/mL PCP NEGATIVE < 25 ng/mL THC NEGATIVE < 50 ng/mL Reviewed by DESIRAE THYROID STIM HORMONE (TSH) 07/24/18 NOTE Original Ordering Provider: Desirae Walton TSH 0.60 uIU/mL 0.358-3.[address]/NG WC BY PCR 07/11/18 NOTE Original Ordering Provider: Desirae Walton CHLAM TRAC PCR Negative Negative NG BY PCR Negative Negative Reviewed by [facility] PROVIDER SIGNATURE ( REQUIRED) PHYSICAL EXAMINATION General Appearence: 29 yo female in no acute distress Vital Signs: AF, VSS Heart: RRR without rubs or gallops Lungs: CTA x 2 Breasts: deferred Abdomen: gravid Pelvis: Cervix: 2/80/-3 at Presentation: cephalic Fetus: Size: AGA Movement: present Heart: 135bpm baseline, moderate variability, with accels, no decels Uterus: No contractions Impression: 29yo at 39w3d gestation per 5w6d US PROM x 6.5 hours GHTN GERD GBS positive Plan: Admit to inpatient Continuous EFM GBS prophylaxis Pitocin per protocol Close observation Anticipate vaginal
[2019-03-03] MEDS: Oxytocin 30 units/NS 500 ml 30 UNITS/500 ML IV.SOLN IV (09:03)
[2019-03-03] MEDS: Lactated Ringers 500 ML 999 ML IV (11:50)
[2019-03-03] MEDS: fentaNYL-bupivacaine (epidural) 100 ML BAG EPIDURAL ×2 (12:38→17:51)
--- NOTE | 2019-03-03 12:50 | NURSING ---
Jessa santana arrived in room at [address]rual.
--- NOTE | 2019-03-03 15:35 | PCM.PN.BLA ---
Progress Note LABOR PROGRESS NOTE SROM this am (approx 4) . possibly also a gush yesterday Comfortable w/ epidural Had been in hands and knees position, now to high fowlers with VTX still high. AVSS pitocin at 10 mIU/min EFM/IFM: 120s avg variabiilty occasional early decleration. Category I tracing UCs q 2-7+ mins coupling and spacing. CX last RN check /-3 A/P: 39 3/7 wk , Term IUP SROM Pitocin induction. GBS positive and PCN GBS in place. Continue Pitocin position changes . Watch rotation, descent.
[2019-03-03] MEDS: Lactated Ringers 1,000 ML 200 ML IV (16:31)
[2019-03-03] MEDS: Oxytocin 30 units/NS 500 ml 30 UNITS/500 ML IV.SOLN 334 UNITS IV (20:02)
--- NOTE | 2019-03-03 20:14 | PCM.OPRPT ---
Vaginal Delivery Maternal Presentation: Active Labor 39 3/7 wk Amniotic Membrane Rupture Type: Spontaneous at home Rupture of Membrane time: 0400 (approx) Amniotic Fluid Description: Clear Final TANVI: 03/07/19 Final TANVI Source: US <20 weeks Gestational age: 39 Weeks and 3 Days Date of Procedure: 03/03/19 Pre-Operative Diagnosis: 39 3/7 wk EGA labor Post-Operative Diagnosis: same Surgery/ Procedure Performed: Spontaneous Vaginal Delivery Type of Anesthesia: Epidural Description of Procedure: of a delgado viable female over midline episiotomy without extension. Episiotomy created due to FHR deceleration noted with head at perineum. Head delivered MARTINEZ. OP and nares bulb suctioned on perineum. Nuchal cord times one reduced, and shoulders delivered easily. End stage meconium noted. to maternal abdomen Cord clamped times two and cut, Routine venous cord gas collected. PP exam: midline episiotomy repaired to hemostatic, intact with 3-0 Vicryl under epidural anesthesia. No other lacerations noted. Placenta delivered by spont expulsion, expression. 3V cord normal appearing and intact with trailing membranes. EBL 250cc Pt and infant tolerated delivery well. To recovery, stable condition Ray todd and needle counts correct times two. Presentation: Vertex, MARTINEZ Placental Delivery Description: Spontaneous, Expressed Placenta Disposition: [facility] Cord Vessel Description: 3 Vessels Cord Gases drawn per routine: VBG Cord Entanglement: Around neck x 1, loose Estimated Blood Loss: 250 A gender: Female (1 minute): 8 (5 minute): 9 Episiotomy Description: Midline Laceration: None Medications given after delivery: IV Pitocin Complications: None
--- NOTE | 2019-03-03 20:21 | DCINST_ITS ---
Discharge Diet: No Restrictions Discharge Activity: May Shower, May Take a Tub Bath Return to work on:: 04/20/19 May resume sexual activity in: 4-6 weeks Additional Activity Instructions:: Nothing in the vagina for 4-6 weeks. You may return to work/school in 6 weeks. Additional Instructions: If you experience any of the following, contact your healthcare provider. * Bleeding that soaks a pad every hour for 2 hours * Fever 100.4 or higher * Unrelieved abdominal pain * Problems urinating (including inability to urinate or burning while urinating). * Visual changes * Severe headache * Flu-like symptoms * Pain or redness in one of both of your breasts * Pain, warmth, tenderness or swelling in your legs, especially the calf area * Frequent nausea and vomiting * Symptoms of depression or anxiety If you experience any of the following, call 911 or go to the nearest Emergency Room. * Chest pain * Problems breathing * Seizure activity * Partial or complete paralysis of a body part, slurred speech, weakness or drooping of the face, or a sudden inability to walk or hold your balance Allergies/Adverse Reactions: Allergies No Known Allergies Allergy (Verified 03/03/19 05:22) Medications to take at Discharge Aspirin [Aspirin, Baby] 81 mg PO DAILY@0800 01/21/18 Vit Calc,Iron,Folic [ Vitamins] 1 each PO DAILY 01/21/18 Cholecalciferol (Vitamin D3) [Vitamin D3] 2,000 unit PO DAILY 03/03/19 Please Follow Up With: Desirae Walton MD - [phone] When: Call to make an appointment with your doctor in 6 weeks. Test Results: Test results from this visit will be discussed in further detail at your follow- up appointment, if applicable. Proposed Discharge Date: 03/05/19
--- NOTE | 2019-03-03 20:21 | PCM.DCVAG ---
Discharge Diet: No Restrictions Discharge Activity: May Shower, May Take a Tub Bath Return to work on:: 04/20/19 May resume sexual activity in: 4-6 weeks Additional Activity Instructions:: Nothing in the vagina for 4-6 weeks. You may return to work/school in 6 weeks. Additional Instructions: If you experience any of the following, contact your healthcare provider. Bleeding that soaks a pad every hour for 2 hours Fever 100.4 or higher Unrelieved abdominal pain Problems urinating (including inability to urinate or burning while urinating). Visual changes Severe headache Flu-like symptoms Pain or redness in one of both of your breasts Pain, warmth, tenderness or swelling in your legs, especially the calf area Frequent nausea and vomiting Symptoms of depression or anxiety If you experience any of the following, call 911 or go to the nearest Emergency Room. Chest pain Problems breathing Seizure activity Partial or complete paralysis of a body part, slurred speech, weakness or drooping of the face, or a sudden inability to walk or hold your balance Allergies/Adverse Reactions: Allergies No Known Allergies Allergy (Verified 03/03/19 05:22) Medications to take at Discharge Aspirin [Aspirin, Baby] 81 mg PO DAILY@0800 01/21/18 Vit Calc,Iron,Folic [ Vitamins] 1 each PO DAILY 01/21/18 Cholecalciferol (Vitamin D3) [Vitamin D3] 2,000 unit PO DAILY 03/03/19 Please Follow Up With: Desirae Walton MD - [phone] When: Call to make an appointment with your doctor in 6 weeks. Test Results: Test results from this visit will be discussed in further detail at your follow-up appointment, if applicable. Proposed Discharge Date: 03/05/19
[2019-03-03] MEDS: Ibuprofen 600 MG Tablet PO (22:11)
--- NOTE | 2019-03-04 | NURSING ---
Epidural catheter removed, blue tip intact.
[2019-03-04 00:10] VITALS: BP 132/75; PULSE 93; RESP 16; TEMP 36.3; O2SAT 96
[2019-03-04 04:30] VITALS: BP 133/81; PULSE 76; RESP 18; TEMP 36.6; O2SAT 95
[2019-03-04] MEDS: Acetaminophen 500 MG Tablet 1000 MG PO ×3 (04:47→22:46)
[2019-03-04] MEDS: Ibuprofen 600 MG Tablet PO ×3 (05:59→18:34)
--- NOTE | 2019-03-04 07:19 | PCM.PN.OB ---
- Physical Exam Vital Signs Temp Pulse Resp BP Pulse Ox 97.8 F 76 18 133/81 H 95 03/04/19 04:30 03/04/19 04:30 03/04/19 04:30 03/04/19 04:30 03/04/19 04:30 Oxygen Delivery Method Room Air Weight: 103.6 kg Body Mass Index (BMI) 39.2 Intake and Output for Last 24 Hours 03/02/19 03/03/19 03/04/19 23:59 23:59 23:59 Intake Total 3196.83 / 3196.83 1000 / 1000 Output Total 700 / 700 1200 / 1200 Balance 2496.83 / 2496.83 -200 / -200 Laboratory Tests Past 24 Hrs 03/03/19 06:42 Blood Type A POSITIVE Antibody Screen NEGATIVE Medical Necessity - Tobacco Use Smoking Status: Never smoker Assessment/Plan 39 3/7 wk SROM Induction Stable Continue routine care
[2019-03-04 07:56] VITALS: BP 134/87; PULSE 72; RESP 16; TEMP 36.7; O2SAT 97
[2019-03-04 12:31] VITALS: BP 135/86; PULSE 77; RESP 16; TEMP 36.6
[2019-03-04 16:20] VITALS: BP 143/87; PULSE 80; RESP 16; TEMP 36.8
[2019-03-04 20:29] VITALS: BP 145/92; PULSE 66; RESP 16; TEMP 36.8
[2019-03-04] MEDS: Senna/Docusate Sodium 1 Tablet PO (22:46)
[2019-03-05] MEDS: Ibuprofen 600 MG Tablet PO (01:31)
[2019-03-05 01:44] VITALS: BP 142/76; PULSE 76; RESP 16; TEMP 36.4
--- NOTE | 2019-03-05 06:32 | PCM.PN.OB ---
Subjective: PPD#2 Doing well. Nursing baby Pain control adequate. - Physical Exam General: Alert, Oriented x3, Cooperative, No apparent distress HEENT: Atraumatic, EOMI Neck: Supple Neurological: Cranial nerves II-XII grossly intact Psych/Mental Status: Normal Affect Vital Signs Temp Pulse Resp BP Pulse Ox 97.5 F L 76 16 142/76 H 97 03/05/19 01:44 03/05/19 01:44 03/05/19 01:44 03/05/19 01:44 03/04/19 07:56 Oxygen Delivery Method Room Air Weight: 103.6 kg Body Mass Index (BMI) 39.2 Intake and Output for Last 24 Hours 03/03/19 03/04/19 03/05/19 23:59 23:59 23:59 Intake Total 3196.83 / 3196.83 1000 / 1000 Output Total 700 / 700 1625 / 1625 Balance 2496.83 / 2496.83 -625 / -625 Medical Necessity - Tobacco Use Smoking Status: Never smoker Assessment/Plan PPD#2 39 3/7 wk SROM Induction Stable Dischg home. RTO in 6 wk for pp check.
[2019-03-05 07:45] VITALS: BP 135/85; PULSE 68; RESP 16; TEMP 36.8
[2019-03-05] MEDS: Acetaminophen 500 MG Tablet 1000 MG PO (10:04)
== END 2019-03-05 11:20 | disposition home or self-care (01) | DRG 807 ==
LOC: WPOUT 06:01 → WP 06:01
PROVIDERS: Obstetrics & Gynecology; Admitting Provider Obstetrics & Gynecology; Visit Provider Obstetrics & Gynecology
DX: O13.4 Gestational [pregnancy-induced] hypertension without significant proteinuria, complicating childbirth (principal); O99.824 Streptococcus B carrier state complicating childbirth; O69.81X0 Labor and delivery complicated by cord around neck, without compression, not applicable or unspecified; O77.0 Labor and delivery complicated by meconium in amniotic fluid; O76 Abnormality in fetal heart rate and rhythm complicating labor and delivery; K21.9 Gastro-esophageal reflux disease without esophagitis; Z79.82 Long term (current) use of aspirin; Z3A.39 39 weeks gestation of pregnancy; Z37.0 Single live birth
CPT/HCPCS: 59025; 59050; 84112; 85025; 86850; 86900; 86901; 99218; J7120; G0378

== ENCOUNTER → 2020-02-10 | Outpatient (CLI) | payer OTHER, SELFPAY ==
[2020-02-16 16:44] LABS: HPV Reflexed? NOT INDICATED
== END | disposition home or self-care (01) ==
LOC: LABSPEC 16:58
PROVIDERS: Visit Provider Obstetrics & Gynecology
DX: Z12.4 Encounter for screening for malignant neoplasm of cervix (principal)
CPT/HCPCS: 88175; G0145

== ENCOUNTER → 2020-08-17 12:18 | Outpatient (CLI) | payer OTHER, SELFPAY ==
[2020-08-17 15:38] LABS: Hematocrit 41.5 % (37-47); Hemoglobin 13.5 g/dL (12.0-15.0); Mean Corp Hgb Conc 32.5 g/dL (32-36); Mean Corpuscular Hgb 28.8 pg (27.0-32.0); Mean Corpuscular Volume 88.5 fL (81-99); Mean Platelet Vol. 10.3 fl (6.2-12.0); Platelet Count 322 K/mm3 (150-450); RBC Distribution Width SD 38.5 fl (35.1-43.9); Red Blood Count 4.69 M/mm3 (4.2-5.4); White Blood Count 10.5 K/mm3 (4.4-11.0)
[2020-08-17 15:56] LABS: ALB/GLOB Ratio 0.9 RATIO (0.9-2.4); AST(SGOT) 17 U/L (15-37); Alanine Aminotransfer ALT/SGPT 33 U/L (13-56); Albumin, Serum 3.7 g/dL (3.2-5.0); Alkaline Phosphatase 125 U/L (45-117); Anion Gap 5 (5-15); BUN 14 mg/dL (7-18); BUN/Creat Ratio 17.7 RATIO (10-20); Calcium,Total 8.9 mg/dL (8.5-10.1); Chloride 106 mmol/L (98-107); Creatinine, Serum 0.79 mg/dL (0.55-1.02); EST Glomerular Filtration Rate 91 mL/min (>60); Est Glom Filt Rate - Afr Amer 111 mL/min (>60); Ferritin 52 ng/mL (8-252); Glucose 115 mg/dL (74-106); Magnesium 2.3 mg/dL (1.6-2.6); Potassium 3.6 mmol/L (3.5-5.1); Protein, Total 7.7 g/dL (6.4-8.2); Sodium Level 137 mmol/L (136-145); Thyroid Stim Hormone (TSH) 1.28 uIU/mL (0.358-3.74)
== END ==
LOC: MTLAB 12:20
PROVIDERS: PCP Family Medicine; Referring Provider Family Medicine; Visit Provider Family Medicine
DX: E61.1 Iron deficiency (principal); F41.1 Generalized anxiety disorder; R00.2 Palpitations
CPT/HCPCS: 36415; 80053; 82728; 83735; 84443; 85027

== ENCOUNTER 2022-06-27 08:10 | Emergency (ER) | payer OTHER, SELFPAY ==
[2022-06-27 08:10] VITALS: BP 120/79; PULSE 74; RESP 14; TEMP 35.6; O2SAT 100; BMI 34.5
[2022-06-27] MEDS: Ondansetron 4 MG/2 ML Vial IV (09:17)
[2022-06-27] MEDS: 0.9% Normal Saline 1,000 ML 1000 ML IV (09:17)
[2022-06-27 09:25] LABS: Absolute Lymphocyte Count 1.14 X10^3/uL (0.83-4.51); Basophil# 0.02 X10^3/uL; Basophil% 0.1 % (0-1); Hematocrit 41.3 % (37-47); Hemoglobin 14.6 g/dL (12.0-15.0); Lymphocyte # 1.14 X10^3/ul (0.83-4.51); Lymphocyte % 7.4 % (19-41); Mean Corp Hgb Conc 35.4 g/dL (32-36); Mean Corpuscular Hgb 30.4 pg (27.0-32.0); Mean Corpuscular Volume 85.9 fL (81-99); Mean Platelet Vol. 10.1 fl (6.2-12.0); Monocyte% 1.9 % (0-10); NRBC Flagged by Analyzer 0 % (0-5); Neutrophil # 13.96 X10^3/uL (2.7-7.7); Neutrophil % 90.1 % (47-70); Platelet Count 355 K/mm3 (150-450); RBC Distribution Width CV 11.7 % (11.6-14.6); RBC Distribution Width SD 36.6 fl (35.1-43.9); Red Blood Count 4.81 M/mm3 (4.2-5.4); White Blood Count 15.5 K/mm3 (4.4-11.0)
--- NOTE | 2022-06-27 09:34 | ED.VIS.GI ---
HPI HPI - GI History of Present Illness Chief Complaint: Nausea/Vomiting Informant: patient Nausea/Vomiting/Emesis GI Symptom: Positive for Nausea and Vomiting Onset: Yesterday Quality: Negative for Blood streaks, Coffee ground or Hematemesis Severity: Severe Diarrhea/Melena/Hematochezia GI Symptom: Positive for Diarrhea; Negative for Melena or Hematochezia Associated Symptoms Associated Symptoms: Negative for Dysuria, Frequency or Hematuria LMP: 1-1/2 weeks ago Narrative Narrative: Patient presents with nausea, vomiting, and diarrhea that began yesterday evening. Patient states it became worse today. Patient states she is unable to keep anything down. Patient denies any hematemesis or coffee-ground emesis. Patient admits to some diarrhea. Patient states that he was just 1 episode of watery diarrhea. Patient denies any dysuria or hematuria. Patient denies any melena or hematochezia. Patient states her last menstrual period was a week and a half ago. Patient denies any abdominal pain. Patient states she has some muscle cramping from being dehydrated. [facility] Medical History Acute sinusitis, unspecified Diarrhea Fatigue Home Medications cholecalciferol (vitamin D3) 50 mcg (2,000 unit) capsule 2,000 unit PO DAILY 03/03/19 [History Last Taken Unknown] fluoxetine 20 mg capsule cap PO 08/10/21 [History Last Taken Unknown] Allergy/AdvReac Type Severity Reaction Status Date / Time No Known Allergies Allergy Verified 08/10/21 13:08 Social History Smoking Status: Never smoker ROS ROS ED Constitutional Constitutional ED: Denies chills or fever(s) Eyes Eyes: Denies blurry vision or change in vision ENT ENT ED: Denies rhinorrhea or sore throat Cardiovascular Cardiovascular: Denies chest pain or palpitations Respiratory/Chest Respiratory/Chest: Denies cough or dyspnea Gastrointestinal Gastrointestinal: Reports diarrhea, nausea and vomiting; Denies abdominal pain or melena Genitourinary Genitourinary ED: Denies dysuria or hematuria Musculoskeletal Musculoskeletal: Denies back pain or neck pain Integumentary Denies abscess or rash Neurologic Neurologic: Denies headache(s) or weakness Allergic/Immunologic Allergic/Immunologic ED: Denies mouth swelling or urticaria EXAM Physical Exam Const Vital Signs: 06/27/22 08:10 Temperature 96.0 F L Temperature Source Temporal Pulse Rate 74 Respiratory Rate 14 Blood Pressure 120/79 Blood Pressure Mean 92 Pulse Ox 100 Oxygen Delivery Method Room Air Positive well nourished, well developed and obese General Appearance ED: well developed and NAD Nutritional Appearance: obese HEENT Reports moist mucous membranes Neck supple and no JVD Resp normal respiratory effort and clear to auscultation bilaterally Cardio regular rate, regular rhythm and no murmurs GI normal to inspection, nondistended, normoactive bowel sounds Palpation: soft and tender epigastric, LLQ, RLQ, LUQ, RUQ, periumbilical and suprapubic; Negative for guarding or rebound tenderness present Extremity normal to inspection General Extremety ED: Negative for edema or tenderness General Extremity: Negative for edema Neuro oriented x3, CN's II-XII intact bilaterally and no sensory deficits noted Sensorium / Orientation: alert Motor Exam: strength 5/5 throughout Psych mental status grossly normal Skin no rashes or lesions noted MDM MDM MDM Narrative Medical decision making narrative: Differential diagnosis includes gastroenteritis, bowel obstruction, , ectopic , ovarian cyst, ovarian torsion, colitis, enteritis, urinary tract infection, ureteral lithiasis, COVID-19, and influenza infection. CBC will be obtained to assess for leukocytosis and anemia. Comprehensive metabolic profile will be obtained to assess for electrolyte abnormality, hepatic function, and renal function. Urinalysis will be obtained to assess for hematuria and urinary tract infection. Serum hCG will be obtained to assess for and ectopic . COVID-19 rapid antigen will be obtained to assess for COVID-19 infection. Influenza a and influenza B antigens will be obtained to assess for influenza infection. CT scan of the abdomen pelvis will be obtained to assess for bowel obstruction and perforation. Lab Data Attestation: I reviewed the patient's lab results. Lab results narrative: CBC was reviewed and showed a mild leukocytosis of 15.5. Comprehensive metabolic profile was reviewed and was within normal limits. Serum hCG was reviewed and was negative. Urinalysis was reviewed and does not show any evidence of urinary tract infection or hematuria. Labs: Laboratory Results - last 24 hr 06/27/22 06/27/22 06/27/22 08:30 08:30 08:30 WBC 15.5 H RBC 4.81 Hgb 14.6 Hct 41.3 MCV 85.9 MCH 30.4 MCHC 35.4 RDW Std Deviation 36.6 RDW Coeff of Nish 11.7 Plt Count 355 MPV 10.1 Immature Gran % (Auto) 0.500 Neut % (Auto) 90.1 H Lymph % (Auto) 7.4 L [place] % (Auto) 1.9 Eos % (Auto) 0.0 Baso % (Auto) 0.1 Absolute Neuts (auto) 14.0 H Absolute Lymphs (auto) 1.14 Nucleated RBC % 0 Sodium 138 Potassium 3.5 Chloride 106 Carbon Dioxide 19.0 L Anion Gap 13 BUN 14 Creatinine 0.80 Estim Creat Clear Calc 88.79 Est GFR (MDRD) Af Amer 108 Est GFR (MDRD) Non-Af 89 BUN/Creatinine Ratio 17.5 Glucose 137 H Calcium 9.8 Total Bilirubin 0.80 AST 13 L ALT 26 Alkaline Phosphatase 104 Total Protein 8.1 Albumin 4.1 Globulin 4.0 Albumin/Globulin Ratio 1.0 Serum , Qual NEGATIVE Urine Color Urine Clarity Urine pH Ur Specific [place] Urine Protein Urine Glucose (UA) Urine Ketones Urine Occult Blood Urine Nitrite Urine Bilirubin Urine Urobilinogen Ur Leukocyte Esterase Urine RBC Urine WBC Ur Squamous Epith Cells Urine Bacteria Urine Mucus 06/27/22 09:35 WBC RBC Hgb Hct MCV MCH MCHC RDW Std Deviation RDW Coeff of Nish Plt Count MPV Immature Gran % (Auto) Neut % (Auto) Lymph % (Auto) [place] % (Auto) Eos % (Auto) Baso % (Auto) Absolute Neuts (auto) Absolute Lymphs (auto) Nucleated RBC % Sodium Potassium Chloride Carbon Dioxide Anion Gap BUN Creatinine Estim Creat Clear Calc Est GFR (MDRD) Af Amer Est GFR (MDRD) Non-Af BUN/Creatinine Ratio Glucose Calcium Total Bilirubin AST ALT Alkaline Phosphatase Total Protein Albumin Globulin Albumin/Globulin Ratio Serum , Qual Urine Color Yellow Urine Clarity Clear Urine pH 8.0 Ur Specific [place] 1.015 Urine Protein 30 H Urine Glucose (UA) Normal Urine Ketones 150 A* Urine Occult Blood 10 H Urine Nitrite Negative Urine Bilirubin Negative Urine Urobilinogen Normal Ur Leukocyte Esterase 25 H Urine RBC 0 SEEN Urine WBC 0-5 SEEN Ur Squamous Epith Cells 0-5 SEEN Urine Bacteria 0 SEEN Urine Mucus 1+ Radiography Diagnostic Testing: Clinical Impression(s) from Imaging Studies Abdomen/Pelvis CT 06/27/22 09:48 IMPRESSION: 2.4 cm cyst in the right ovary. Electronically Signed: Shree Rain MD at 12:09 EST , CT scan of the abdomen pelvis was reviewed. On my independent interpretation, there is no evidence of perforation or obstruction. There is no free air or free fluid. There is no hydronephrosis or ureteral calculus. Radiologist also interpreted the CT scan and noted 18.4 cm cyst in the right ovary. Treatment and Re-Evaluation Narrative: Patient was given IV fluids and Zofran. Patient is feeling better on reevaluation. Patient was advised of her findings. Patient was instructed to start with small amounts of fluids more frequently. Patient was instructed to advance to a bland diet and then to a regular diet if she feels better. Patient stated she would take [id number] antiemetics and does not want a prescription for antiemetics at this time. Patient was instructed return if worse in any way. Patient understands and is agreeable with the plan. All questions were answered. Discharge Plan Triage Chief Complaint: Nausea/Vomiting ED Provider: Jerrell Zelaya Dx/Rx/DC Orders Clinical Impression: Nausea and vomiting, Obesity (BMI 30.0-34.9) Instructions: ED Vomiting (Adult) Prescriptions: No Action fluoxetine 20 mg capsule PO cholecalciferol (vitamin D3) 2,000 UNIT capsule 2,000 unit PO DAILY Primary Care Provider: Jerrell Segundo Referrals: Jerrell Segundo MD [Primary Care Provider] - 5-7 Days Disposition Disposition: Home, Self Care
[2022-06-27 09:36] LABS: Internal QC Validated? YES +Cl - CLEAR BKGD; Pregnancy, Serum, hCG Quali. NEGATIVE Negative
[2022-06-27 09:40] LABS: Bacteria 0 SEEN /hpf (None Seen); Red Blood Cells-Urine 0 SEEN /hpf (0-5)
[2022-06-27 09:42] LABS: Color, Urine Yellow (Yellow); Glucose, Dipstick Normal (Normal); Leukocyte Esterase-Dipstick 25 /ul (Negative); Nitrite-Dipstick Negative (Negative); Occult Blood-Urine 10 /ul (Negative); Protein-Dipstick 30 mg/dl (Negative); Specific Gravity, Urine 1.015 (1.002-1.030); Urine Bilirubin Dipstick Negative (Negative); Urine Clarity Clear (Clear); Urine Urobilinogen Normal (Normal)
[2022-06-27 09:43] LABS: AST(SGOT) 13 U/L (15-37); Alanine Aminotransfer ALT/SGPT 26 U/L (13-56); Albumin, Serum 4.1 g/dL (3.2-5.0); Alkaline Phosphatase 104 U/L (45-117); Anion Gap 13 (5-15); BUN 14 mg/dL (7-18); BUN/Creat Ratio 17.5 RATIO (10-20); Calcium,Total 9.8 mg/dL (8.5-10.1); Chloride 106 mmol/L (98-107); EST Glomerular Filtration Rate 89 mL/min (>60); Est Glom Filt Rate - Afr Amer 108 mL/min (>60); Estimated Creatinine Clearance 88.79 ml/min; Glucose 137 mg/dL (74-106); Potassium 3.5 mmol/L (3.5-5.1); Protein, Total 8.1 g/dL (6.4-8.2); Sodium Level 138 mmol/L (136-145)
[2022-06-27 09:44] LABS: Ketone-Dipstick 150 mg/dl (Negative)
--- NOTE | 2022-06-27 09:48 | CT_ITS ---
STUDY: CT ABDOMEN AND PELVIS WITH CONTRAST REASON FOR EXAM: Female, 32 years old. Emesis. Elevated white cell count. RADIATION DOSAGE (If Supplied By Facility): CTDIvol = ( 16.15 ) mGy, DLP = ( 958.97 ) mGycm TECHNIQUE: Transaxial images were obtained from the dome of the diaphragm to the symphysis pubis with oral contrast. Oral and amp; IV Gastrografin and amp; 100mL Isovue-370 was administered. Sagittal and coronal images were reconstructed. Individualized dose optimization techniques were used for this CT. COMPARISON: None. FINDINGS: The visualized lung bases are unremarkable. The visualized portions of the heart are within normal limits. Normal liver. Normal gallbladder and extrahepatic biliary system. Normal spleen. Normal pancreas. Normal bilateral adrenal glands. Normal right kidney. Normal left kidney. Normal visualized stomach. Normal small intestine. Normal colon. The appendix is visualized and appears normal. Normal abdominal aorta. Normal inferior vena cava. Normal retroperitoneum. Normal urinary bladder. There is a 2.4 cm cyst in the right ovary. Small follicles are seen in the left ovary. Normal abdominal wall. Normal osseous structures. CT/Abdomen/Pelvis WITH Contrast IMPRESSION: 2.4 cm cyst in the right ovary. Electronically Signed: Shree Rain MD at 12:09 [facility] ,
[2022-06-27 09:49] LABS: Mucous, Urine 1+ /hpf (<or=2+); Squamous Epithelial Cells - UA 0-5 SEEN /hpf (5-10); White Blood Cells 0-5 SEEN /hpf (0-5)
[2022-06-27 13:34] VITALS: RESP 16
== END 2022-06-27 13:35 | disposition home or self-care (01) ==
PROVIDERS: Emergency Provider Emergency Medicine; PCP Family Medicine; Visit Provider Emergency Medicine
DX: R11.2 Nausea with vomiting, unspecified (principal); R19.7 Diarrhea, unspecified; E66.9 Obesity, unspecified; Z20.822 Contact with and (suspected) exposure to COVID-19
CPT/HCPCS: 74177; 80053; 81001; 84703; 85025; 87428; 96361; 96374; 99283; J7030; Q9967; A4216; J2405

== ENCOUNTER → 2022-07-03 | Outpatient (CLI) | payer OTHER, SELFPAY ==
[2022-07-03 12:57] LABS: Cholesterol 150 mg/dL (200); High Density Lipoprotein 48 mg/dL; Thyroid Stim Hormone (TSH) 0.94 uIU/mL (0.358-3.74); Triglycerides 83 mg/dL; Very Low Density Lipoprotein 17 mg/dL (5-40)
== END | disposition home or self-care (01) ==
LOC: MFPLAB 09:59
PROVIDERS: PCP Family Medicine; Referring Provider Family Medicine; Visit Provider Family Medicine
DX: F41.1 Generalized anxiety disorder (principal); E66.9 Obesity, unspecified; Z13.220 Encounter for screening for lipoid disorders
CPT/HCPCS: 36415; 80061; 84443

== ENCOUNTER → 2023-12-18 | Outpatient (CLI) | payer OTHER, SELFPAY ==
[2023-12-23 15:08] LABS: HPV APTIMA, High Risk Negative (Negative)
== END | disposition home or self-care (01) ==
PROVIDERS: PCP Family Medicine; Referring Provider Nurse Practitioner Family; Visit Provider Nurse Practitioner Family
DX: Z01.419 Encounter for gynecological examination (general) (routine) without abnormal findings (principal)
CPT/HCPCS: 87624; 88175; G0145

== ENCOUNTER 2024-01-23 12:55 | Emergency (ER) | payer OTHER, SELFPAY ==
[2024-01-23 12:55] VITALS: BP 128/86; PULSE 84; RESP 14; TEMP 37.2; O2SAT 98; BMI 34.5
[2024-01-23] MEDS: 0.9% Normal Saline (1000mL) 1,000 ML 999 ML IV ×2 (13:59→15:08)
[2024-01-23] MEDS: Ondansetron 4 MG/2 ML Vial IV (14:00)
[2024-01-23 14:03] LABS: Absolute Lymphocyte Count 1.68 X10^3/uL (0.83-4.51); Absolute Neutrophil Count 9.5 X10^3/uL (2.0-7.7); Basophil# 0.03 X10^3/uL; Basophil% 0.3 % (0-1); Eosinophil# 0.06 X10^3/uL; Eosinophils% 0.5 % (0-5); Hematocrit 42.1 % (37-47); Hemoglobin 14.2 g/dL (12.0-15.0); Lymphocyte # 1.68 X10^3/ul (0.83-4.51); Lymphocyte % 14.2 % (19-41); Mean Corp Hgb Conc 33.7 g/dL (32-36); Mean Corpuscular Hgb 29.8 pg (27.0-32.0); Mean Corpuscular Volume 88.3 fL (81-99); Mean Platelet Vol. 9.6 fl (6.2-12.0); Monocyte# 0.54 X10^3/uL; Monocyte% 4.6 % (0-10); NRBC Flagged by Analyzer 0 % (0-5); Neutrophil % 80.1 % (47-70); Platelet Count 312 K/mm3 (150-450); RBC Distribution Width CV 11.9 % (11.6-14.6); RBC Distribution Width SD 38.3 fl (35.1-43.9); Red Blood Count 4.77 M/mm3 (4.2-5.4); White Blood Count 11.8 K/mm3 (4.4-11.0)
[2024-01-23 14:20] LABS: Internal QC Validated? YES +Cl - CLEAR BKGD; Pregnancy, Serum, hCG Quali. NEGATIVE Negative
--- NOTE | 2024-01-23 14:22 | EDS_ITS ---
HPI <EMILY Snider - Last Filed: 01/23/24 16:09> History of Present Illness Chief Complaint: Nausea/Vomiting/Diarrhea Narrative Narrative: Patient is a 34-year-old female with no significant medical history other than anxiety depression who presents to [facility] for 2 days of generalized malaise, nausea and vomiting. Patient states that this woke her up around 440 in the morning yesterday. Patient states that she has been having ongoing nausea and vomiting, decreased oral intake. Patient is only had a small amount of diarrhea. She denies any specific pain. Patient states that this did happen last year, she had come in for nausea medicine and fluids. She denies any bowel or bladder cons, [place] any blood in her stool or vomit. [facility] <EMILY Snider - Last Filed: 01/23/24 16:09> [facility] Medical History Acute sinusitis, unspecified Diarrhea Fatigue Home Medications ?Medication ?Instructions ?Recorded ?Last Taken ?Type escitalopram oxalate 10 mg tablet 15 mg PO DAILY 12/18/23 Unknown History ondansetron 4 mg disintegrating 4 mg PO Q8H PRN PRN Nausea #10 tabs 01/23/24 Unknown Rx tablet Allergy/AdvReac Type Severity Reaction Status Date / Time No Known Allergies Allergy Verified 01/23/24 12:55 Family History (Updated 12/18/23 @ 11:25 by Katelin Lazar) Aunt Breast cancer Social History (Updated 12/18/23 @ 11:29 by Katelin Lazar) adopted: No household members: spouse and children housing: house number of children: 2 current occupational status: employed 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[employer] current occupational exposures/hazards: No pets and animals: Yes pets and animals: cat(s) and dog(s) history of recent travel: No sexually active: Yes Smoking Status: Never smoker alcohol intake: current alcohol intake frequency: holidays/special occasions only Alcohol type: hard liquor substance use type: marijuana well-balanced diet: about half the time caffeine: Yes Type: coffee Number of servings: 2 eating out: rarely or never giancarlo/gnosticism: Denominational seatbelt use: always do you feel safe at home: Yes 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 Positive for nausea, vomiting, diarrhea : Negative for any urinary frequency, dysuria, retention, blood in urine Muscle skeletal: Negative for any neck pain, back pain Neurological: Negative for any headache, syncope, dizziness Skin: Negative for any rashes, itching, abrasions, lacerations Psychiatric: Negative for any depression, anxiety, stress, suicidal ideation, homicidal ideation Hematologic: Negative for any excessive bruising, easy bleeding EXAM <EMILY Snider - Last Filed: 01/23/24 16:09> Physical Exam Narrative Exam Narrative: Vital signs reviewed. HEET: Head normocephalic atraumatic, TMs clear bilaterally. Posterior pharynx is clear, dry mucous membranes. Nares clear bilaterally. Neck: Supple with no lymphadenopathy or tenderness. No signs of meningismus. Cardiac: Regular rate and rhythm no murmurs gallops or rubs, equal peripheral pulses bilaterally. Respiratory: Lungs clear to auscultation bilaterally. No chest tenderness. Abdomen: Soft, nontender, nondistended. No abdominal bruit or pulsatile masses. No hepatosplenomegaly Extremities: No peripheral edema, no signs of gross trauma or deformity. Active full range of motion of all extremities. Neuro: Cranial nerves II through XII intact, no focal neurological deficits. Skin: Clean dry and intact with no rash, purpura, petechiae, vesicles or pustules. Backs/flank: No CVA tenderness, no midline spinal tenderness, no deformity. Psych: Normal mood and affect. No SI, HI or acute psychosis. Const Vital Signs: 01/23/24 12:55 01/23/24 14:55 Temperature 99 F Temperature Source Temporal Pulse Rate 84 73 Respiratory Rate 14 16 Blood Pressure 128/86 H 117/74 Blood Pressure Mean 100 88 Pulse Ox 98 98 Oxygen Delivery Method Room Air Room Air Positive well nourished and well developed General Appearance ED: well developed <Dr. Obie Meneses DO - Last Filed: 01/23/24 16:16> Physical Exam Const Vital Signs: 01/23/24 12:55 01/23/24 14:55 Temperature 99 F Temperature Source Temporal Pulse Rate 84 73 Respiratory Rate 14 16 Blood Pressure 128/86 H 117/74 Blood Pressure Mean 100 88 Pulse Ox 98 98 Oxygen Delivery Method Room Air Room Air MDM <EMILY Snider - Last Filed: 01/23/24 16:09> MDM Lab Data Labs: Laboratory Results - last 24 hr 01/23/24 01/23/24 13:45 14:57 WBC 11.8 H RBC 4.77 Hgb 14.2 Hct 42.1 MCV 88.3 MCH 29.8 MCHC 33.7 RDW Std Deviation 38.3 RDW Coeff of Nish 11.9 Plt Count 312 MPV 9.6 Immature Gran % (Auto) 0.300 Neut % (Auto) 80.1 H Lymph % (Auto) 14.2 L [place] % (Auto) 4.6 Eos % (Auto) 0.5 Baso % (Auto) 0.3 Absolute Neuts (auto) 9.5 H Absolute Lymphs (auto) 1.68 Nucleated RBC % 0 Sodium 138 Potassium 3.3 L Chloride 106 Carbon Dioxide 24.0 Anion Gap 8 BUN 9 Creatinine 0.77 Estim Creat Clear Calc 114.82 Est GFR (MDRD) Af Amer 112 Est GFR (MDRD) Non-Af 93 BUN/Creatinine Ratio 11.7 Glucose 90 Calcium 9.6 Total Bilirubin 0.60 AST 18 ALT 26 Alkaline Phosphatase 106 Total Protein 7.8 Albumin 3.8 Globulin 4.0 Albumin/Globulin Ratio 1.0 Lipase 38 Serum , Qual NEGATIVE Urine Color Yellow Urine Clarity Sl. Cloudy Urine pH 6.5 Ur Specific [place] 1.015 Urine Protein 30 H Urine Glucose (UA) Normal Urine Ketones 150 A* Urine Occult Blood 10 H Urine Nitrite Negative Urine Bilirubin Negative Urine Urobilinogen Normal Ur Leukocyte Esterase Negative Urine RBC 0-5 SEEN Urine WBC 0 SEEN Ur Squamous Epith Cells 0-5 SEEN Urine Bacteria 1+ Urine Mucus 2+ Treatment and Re-Evaluation :: Differential diagnosis includes however is not limited to: , GI virus, cholecystitis, appendicitis, food poisoning, cholecystitis Patient appears to be in no obvious respiratory distress vital signs are stable, patient is nontoxic. Presenting to the emergency department with complaints of nausea, vomiting, feeling of dehydrated. Patient does look clinically dry, dry mucous membranes, cracked lips. Patient received 2 L of normal saline, IV Zofran, once patient is verified not , she will receive IV Toradol. Patient's abdominal exam was unremarkable, no specific pain on palpation. Active bowel sounds in all quadrants. Patient will be reevaluated Patient CBC shows a slight leukocytosis with white blood count 11.8, this is likely reactive. Chemistries show a potassium 3.3, patient's glucose 90, patient is not lipase was negative. After 2 L normal saline, Zofran, Toradol, the patient does feel much better. Patient was able to pass a p.o. challenge. Patient's urinalysis was negative for any infection, there was 150 ketones however patient was dry. Patient will continue to advance her diet as tolerated, given Zofran for home. Struck to return for any worsening symptoms. <Dr. Obie Menesse, DO - Last Filed: 01/23/24 16:16> [facility] History & Record Review Discussion w/independent historian: Patient Lab Data Attestation: I reviewed the patient's lab results. Labs: Laboratory Results - last 24 hr 01/23/24 01/23/24 13:45 14:57 WBC 11.8 H RBC 4.77 Hgb 14.2 Hct 42.1 MCV 88.3 MCH 29.8 MCHC 33.7 RDW Std Deviation 38.3 RDW Coeff of Nish 11.9 Plt Count 312 MPV 9.6 Immature Gran % (Auto) 0.300 Neut % (Auto) 80.1 H Lymph % (Auto) 14.2 L [place] % (Auto) 4.6 Eos % (Auto) 0.5 Baso % (Auto) 0.3 Absolute Neuts (auto) 9.5 H Absolute Lymphs (auto) 1.68 Nucleated RBC % 0 Sodium 138 Potassium 3.3 L Chloride 106 Carbon Dioxide 24.0 Anion Gap 8 BUN 9 Creatinine 0.77 Estim Creat Clear Calc 114.82 Est GFR (MDRD) Af Amer 112 Est GFR (MDRD) Non-Af 93 BUN/Creatinine Ratio 11.7 Glucose 90 Calcium 9.6 Total Bilirubin 0.60 AST 18 ALT 26 Alkaline Phosphatase 106 Total Protein 7.8 Albumin 3.8 Globulin 4.0 Albumin/Globulin Ratio 1.0 Lipase 38 Serum , Qual NEGATIVE Urine Color Yellow Urine Clarity Sl. Cloudy Urine pH 6.5 Ur Specific [place] 1.015 Urine Protein 30 H Urine Glucose (UA) Normal Urine Ketones 150 A* Urine Occult Blood 10 H Urine Nitrite Negative Urine Bilirubin Negative Urine Urobilinogen Normal Ur Leukocyte Esterase Negative Urine RBC 0-5 SEEN Urine WBC 0 SEEN Ur Squamous Epith Cells 0-5 SEEN Urine Bacteria 1+ Urine Mucus 2+ Treatment and Re-Evaluation :: Differential diagnosis includes however is not limited to: , GI virus, cholecystitis, appendicitis, food poisoning, cholecystitis Patient appears to be in no obvious respiratory distress vital signs are stable, patient is nontoxic. Presenting to the emergency department with complaints of nausea, vomiting, feeling of dehydrated. Patient does look clinically dry, dry mucous membranes, cracked lips. Patient received 2 L of normal saline, IV Zofran, once patient is verified not , she will receive IV Toradol. Patient's abdominal exam was unremarkable, no specific pain on palpation. Active bowel sounds in all quadrants. Patient will be reevaluated Patient CBC shows a slight leukocytosis with white blood count 11.8, this is likely reactive. Chemistries show a potassium 3.3, patient's glucose 90, patient is not lipase was negative. After 2 L normal saline, Zofran, Toradol, the patient does feel much better. Patient was able to pass a p.o. challenge. Patient's urinalysis was negative for any infection, there was 150 ketones however patient was dry. Patient will continue to advance her diet as tolerated, given Zofran for home. Struck to return for any worsening symptoms. I have personally performed a face to face assessment of the patient and have reviewed the DELIA Note. I performed a substantive portion of the visit including all aspects of the following. My parmar findings include: History is 34-year-old female presenting with a 2-day history of vomiting diarrhea. No reported fevers. No known bad food exposures or recent travel. No known sick contacts. Patient states she feels dehydrated. She notes occasional aching of her abdomen but otherwise no pain. Exam is no tachycardia and normal tensive. Dry mucous membranes. Abdomen is benign. Medical Decison Making patient received 2 L of IV fluids as well as Toradol and Zofran. Labs showed a mild nonspecific leukocytosis. Normal creatinine. Normal LFTs. Urine with 150 ketones. Patient is tolerating p.o. fluids. She will be discharged home with a prescription for Zofran. Follow-up as needed return if worsening or concerns Discharge Plan Triage Chief Complaint: Nausea/Vomiting/Diarrhea ED Midlevel Provider: Tremayne Silveira ED Provider: Obie Meneses Dx/Rx/DC Orders Clinical Impression: Nausea & vomiting, Dehydration Instructions: ED Dehydration (Adult), ED Vomiting (Adult) Prescriptions: New ondansetron 4 mg tablet,disintegrating 4 mg PO Q8H PRN PRN (Reason: Nausea) Qty: 10 0RF No Action escitalopram oxalate 10 mg tablet 15 mg PO DAILY Primary Care Provider: Jerrell Segundo Referrals: Jerrell Segundo MD [Primary Care Provider] - Activity Restrictions/Additional Instructions: Advance your diet as tolerated. Print Language: Citizen Of [place] Disposition Disposition: Home, Self Care
[2024-01-23 14:24] LABS: AST(SGOT) 18 U/L (15-37); Alanine Aminotransfer ALT/SGPT 26 U/L (13-56); Albumin, Serum 3.8 g/dL (3.2-5.0); Alkaline Phosphatase 106 U/L (45-117); Anion Gap 8 (5-15); BUN 9 mg/dL (7-18); BUN/Creat Ratio 11.7 RATIO (10-20); Calcium,Total 9.6 mg/dL (8.5-10.1); Chloride 106 mmol/L (98-107); Creatinine, Serum 0.77 mg/dL (0.55-1.02); EST Glomerular Filtration Rate 93 mL/min (>60); Est Glom Filt Rate - Afr Amer 112 mL/min (>60); Estimated Creatinine Clearance 114.82 ml/min; Glucose 90 mg/dL (74-106); Lipase 38 U/L (13-75); Potassium 3.3 mmol/L (3.5-5.1); Protein, Total 7.8 g/dL (6.4-8.2); Sodium Level 138 mmol/L (136-145)
[2024-01-23 14:55] VITALS: BP 117/74; PULSE 73; RESP 16; O2SAT 98
[2024-01-23 15:02] LABS: White Blood Cells 0 SEEN /hpf (0-5)
[2024-01-23] MEDS: Ketorolac 15 MG/ML Vial IV (15:08)
[2024-01-23 15:09] LABS: Color, Urine Yellow (Yellow); Glucose, Dipstick Normal (Normal); Leukocyte Esterase-Dipstick Negative /ul (Negative); Nitrite-Dipstick Negative (Negative); Occult Blood-Urine 10 /ul (Negative); Protein-Dipstick 30 mg/dl (Negative); Specific Gravity, Urine 1.015 (1.002-1.030); Urine Bilirubin Dipstick Negative (Negative); Urine Clarity Sl. Cloudy (Clear); Urine Urobilinogen Normal (Normal); Urine pH 6.5 (5.0 - 8.0)
[2024-01-23 15:11] LABS: Ketone-Dipstick 150 mg/dl (Negative)
[2024-01-23 15:15] LABS: Bacteria 1+ /hpf (None Seen); Mucous, Urine 2+ /hpf (<or=2+); Red Blood Cells-Urine 0-5 SEEN /hpf (0-5); Squamous Epithelial Cells - UA 0-5 SEEN /hpf (5-10)
[2024-01-23 16:00] VITALS: BP 131/65; PULSE 74; RESP 16; O2SAT 99
[2024-01-23 16:38] VITALS: BP 131/65; PULSE 74; RESP 16; TEMP 36.3; O2SAT 99
== END 2024-01-23 16:52 | disposition home or self-care (01) ==
PROVIDERS: Nurse Practitioner; Emergency Provider Emergency Medicine; PCP Family Medicine; Visit Provider Emergency Medicine
DX: R11.2 Nausea with vomiting, unspecified (principal); E86.0 Dehydration; R19.7 Diarrhea, unspecified; F41.9 Anxiety disorder, unspecified; F32.A Depression, unspecified
CPT/HCPCS: 80053; 81001; 83690; 84703; 85025; 96361; 96374; 96375; 99282; J7030; A4216; J2405

== ENCOUNTER 2024-01-26 09:38 | Emergency (ER) | payer OTHER, SELFPAY ==
[2024-01-26 09:39] VITALS: BP 136/98; PULSE 74; RESP 16; TEMP 36.2; O2SAT 96; BMI 34.0
[2024-01-26 10:18] LABS: Absolute Lymphocyte Count 2.01 X10^3/uL (0.83-4.51); Absolute Neutrophil Count 5.8 X10^3/uL (2.0-7.7); Basophil# 0.03 X10^3/uL; Basophil% 0.3 % (0-1); Eosinophil# 0.12 X10^3/uL; Eosinophils% 1.4 % (0-5); Hematocrit 40.2 % (37-47); Hemoglobin 13.7 g/dL (12.0-15.0); Lymphocyte # 2.01 X10^3/ul (0.83-4.51); Lymphocyte % 23.1 % (19-41); Mean Corp Hgb Conc 34.1 g/dL (32-36); Mean Corpuscular Hgb 29.7 pg (27.0-32.0); Mean Corpuscular Volume 87.2 fL (81-99); Mean Platelet Vol. 9.6 fl (6.2-12.0); Monocyte# 0.75 X10^3/uL; Monocyte% 8.6 % (0-10); NRBC Flagged by Analyzer 0 % (0-5); Neutrophil # 5.76 X10^3/uL (2.7-7.7); Neutrophil % 66.3 % (47-70); Platelet Count 306 K/mm3 (150-450); RBC Distribution Width CV 11.6 % (11.6-14.6); RBC Distribution Width SD 36.8 fl (35.1-43.9); Red Blood Count 4.61 M/mm3 (4.2-5.4); White Blood Count 8.7 K/mm3 (4.4-11.0)
--- NOTE | 2024-01-26 10:20 | EDS_ITS ---
HPI History of Present Illness Chief Complaint: Nausea/Vomiting Informant: patient Onset/Context/Timing Onset: Days (5) Context: Sudden Onset Timing: Continuous Quality: Cramping, dull Location: Epigastric Worsened by: Nothing Relieved by: Promethazine Narrative Narrative: Patient presents with nausea and vomiting that has been constant for the last 5 days. Patient states it began rather suddenly. Patient states it comes and goes. Patient states that she was able to keep down some rice yesterday after taking some Phenergan. Patient states that her nausea and vomiting returned again today. Patient states she has been unable to keep anything down today. Patient states that her emesis is just stomach contents. Patient denies any hematemesis or coffee-ground emesis. Patient does admit to some diarrhea. Patient denies any melena or hematochezia. Patient denies any urinary complaints. Patient denies any fevers but admits to some subjective chills. PFSH PFS Medical History Acute sinusitis, unspecified Diarrhea Fatigue Home Medications ?Medication ?Instructions ?Recorded ?Last Taken ?Type escitalopram oxalate 10 mg tablet 15 mg PO DAILY 12/18/23 Unknown History ondansetron 4 mg disintegrating 4 mg PO Q8H PRN PRN Nausea #10 tabs 01/23/24 Unknown Rx tablet promethazine 25 mg tablet 25 mg PO Q6H PRN PRN Nausea #10 01/26/24 Unknown Rx TABLETS Allergy/AdvReac Type Severity Reaction Status Date / Time No Known Allergies Allergy Verified 01/26/24 09:41 Family History (Updated 12/18/23 @ 11:25 by Katelin Lazar) Aunt Breast cancer Surgical History no surgical history no surgical history Social History adopted: No household members: spouse and children housing: house number of children: 2 current occupational status: employed 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 current occupational exposures/hazards: No pets and animals: Yes pets and animals: cat(s) and dog(s) history of recent travel: No sexually active: Yes Smoking Status: Never smoker alcohol intake: current alcohol intake frequency: holidays/special occasions only Alcohol type: hard liquor substance use type: marijuana well-balanced diet: about half the time caffeine: Yes Type: coffee Number of servings: 2 eating out: rarely or never giancarlo/muslim: Cheondoism seatbelt use: always do you feel safe at home: Yes 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, 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[employer] ROS ROS ED Constitutional Constitutional ED: Denies chills or fever(s) Eyes Eyes: Denies blurry vision or change in vision ENT ENT ED: Denies rhinorrhea or sore throat Cardiovascular Cardiovascular: Denies chest pain or palpitations Respiratory/Chest Respiratory/Chest: Denies cough or dyspnea Gastrointestinal Gastrointestinal: Reports abdominal pain, diarrhea, nausea and vomiting; Denies melena Genitourinary Genitourinary ED: Denies dysuria or hematuria Musculoskeletal Musculoskeletal: Denies back pain or neck pain Integumentary Denies abscess or rash Neurologic Neurologic: Reports headache(s); Denies weakness Allergic/Immunologic Allergic/Immunologic ED: Denies mouth swelling or urticaria EXAM Physical Exam Const Vital Signs: 01/26/24 09:39 01/26/24 11:39 Temperature 97.2 F L Temperature Source Temporal Pulse Rate 74 64 Respiratory Rate 16 14 Blood Pressure 136/98 H 125/82 H Blood Pressure Mean 110 96 Pulse Ox 96 98 Oxygen Delivery Method Room Air Room Air Positive well nourished and well developed General Appearance ED: well developed and NAD HEENT Reports moist mucous membranes Neck supple and no JVD Resp normal respiratory effort and clear to auscultation bilaterally Cardio regular rate and regular rhythm GI non-distended Palpation: soft and tender epigastric; Negative for guarding or rebound tenderness present Neuro oriented x3, CN's II-XII intact bilaterally and no sensory deficits noted Sensorium / Orientation: alert Motor Exam: strength 5/5 throughout Psych mental status grossly normal MDM MDM MDM Narrative Medical decision making narrative: Differential diagnosis includes viral illness, gastroenteritis, cannabis hyperemesis syndrome, pancreatitis, dehydration, and electrolyte abnormality. CBC will be obtained to assess for leukocytosis and anemia. Basic metabolic profile will be obtained to assess for electrolyte abnormality and renal function. Lipase will be obtained to assess for pancreatitis. Urinalysis will be obtained to assess for urinary tract infection. Serum hCG will be obtained to assess for . Lab Data Attestation: I reviewed the patient's lab results. Lab results narrative: CBC was reviewed and was within normal limits. Basic metabolic profile was r medardowed. Potassium was slightly low at 3.3. Hepatic profile was reviewed. AST was slightly elevated at 52 and ALT was slightly elevated at 88. Total bilirubin and direct bilirubin were within normal limits. Alkaline phosphatase was within normal limits. Lipase was reviewed and was within normal limits. Serum hCG was reviewed and was negative. Urinalysis was reviewed. There is no evidence of urinary tract infection or hematuria. Labs: Laboratory Results - last 24 hr 01/26/24 01/26/24 10:01 10:33 WBC 8.7 RBC 4.61 Hgb 13.7 Hct 40.2 MCV 87.2 MCH 29.7 MCHC 34.1 RDW Std Deviation 36.8 RDW Coeff of Nish 11.6 Plt Count 306 MPV 9.6 Immature Gran % (Auto) 0.300 Neut % (Auto) 66.3 Lymph % (Auto) 23.1 [place] % (Auto) 8.6 Eos % (Auto) 1.4 Baso % (Auto) 0.3 Absolute Neuts (auto) 5.8 Absolute Lymphs (auto) 2.01 Nucleated RBC % 0 Sodium 139 Potassium 3.3 L Chloride 108 H Carbon Dioxide 25.0 Anion Gap 6 BUN 9 Creatinine 0.81 Estim Creat Clear Calc 108.21 Est GFR (MDRD) Af Amer 106 Est GFR (MDRD) Non-Af 87 BUN/Creatinine Ratio 11.1 Glucose 98 Calcium 9.6 Total Bilirubin 0.70 Direct Bilirubin 0.19 AST 52 H ALT 88 H Alkaline Phosphatase 100 Total Protein 7.4 Albumin 3.7 Globulin 3.7 Lipase 33 Serum , Qual NEGATIVE Urine Color Yellow Urine Clarity Clear Urine pH 8.0 Ur Specific [place] 1.015 Urine Protein 30 H Urine Glucose (UA) Normal Urine Ketones 50 H Urine Occult Blood 10 H Urine Nitrite Negative Urine Bilirubin Negative Urine Urobilinogen 1 H Ur Leukocyte Esterase 25 H Urine RBC 0-5 SEEN Urine WBC 0-5 SEEN Ur Squamous Epith Cells 0-5 SEEN Amorphous Sediment 1+ Urine Bacteria 2+ Urine Mucus 1+ Treatment and Re-Evaluation :: Patient was given IV fluids and Zofran. Patient felt better after this. Patient states she has Zofran at home which has not been helping. Patient was given a prescription for Phenergan. Patient was instructed to stop using cannabis. Patient was instructed to follow-up with her primary care physician in 5 to 7 days. Patient was concerned that this could be from her gallbladder because she has a family history of cholecystitis. Given that she has normal white blood cell count and normal bilirubin, I do not feel there is emergent cholecystitis. Patient was advised that if her symptoms persist she may need further testing as an outpatient such as ultrasound or HIDA scan. Patient is agreeable with this. Patient understands and is agreeable with the plan. All questions were answered. Discharge Plan Triage Chief Complaint: Nausea/Vomiting ED Provider: Jerrell Zelaya Dx/Rx/DC Orders Clinical Impression: Nausea & vomiting, Epigastric abdominal pain Instructions: ED Vomiting (Adult) Prescriptions: New promethazine 25 mg tablet 25 mg PO Q6H PRN PRN (Reason: Nausea) Qty: 10 0RF No Action escitalopram oxalate 10 mg tablet 15 mg PO DAILY ondansetron 4 mg tablet,disintegrating 4 mg PO Q8H PRN PRN (Reason: Nausea) Qty: 10 0RF Primary Care Provider: Jerrell Segundo Referrals: Jerrell Segundo MD [Primary Care Provider] - 3-5 Days Print Language: Jordanian Disposition Disposition: Home, Self Care
[2024-01-26 10:25] LABS: Anion Gap 6 (5-15); BUN 9 mg/dL (7-18); BUN/Creat Ratio 11.1 RATIO (10-20); Calcium,Total 9.6 mg/dL (8.5-10.1); Chloride 108 mmol/L (98-107); Creatinine, Serum 0.81 mg/dL (0.55-1.02); EST Glomerular Filtration Rate 87 mL/min (>60); Est Glom Filt Rate - Afr Amer 106 mL/min (>60); Estimated Creatinine Clearance 108.21 ml/min; Glucose 98 mg/dL (74-106); Potassium 3.3 mmol/L (3.5-5.1); Sodium Level 139 mmol/L (136-145)
[2024-01-26] MEDS: 0.9% Normal Saline (1000mL) 1,000 ML 1000 ML IV (10:28)
[2024-01-26] MEDS: Ondansetron 4 MG/2 ML Vial IV (10:28)
[2024-01-26 10:40] LABS: Internal QC Validated? YES +Cl - CLEAR BKGD; Pregnancy, Serum, hCG Quali. NEGATIVE Negative
[2024-01-26 10:43] LABS: Color, Urine Yellow (Yellow); Glucose, Dipstick Normal (Normal); Ketone-Dipstick 50 mg/dl (Negative); Leukocyte Esterase-Dipstick 25 /ul (Negative); Nitrite-Dipstick Negative (Negative); Occult Blood-Urine 10 /ul (Negative); Protein-Dipstick 30 mg/dl (Negative); Specific Gravity, Urine 1.015 (1.002-1.030); Urine Bilirubin Dipstick Negative (Negative); Urine Clarity Clear (Clear); Urine Urobilinogen 1 mg/dl (Normal)
[2024-01-26 11:03] LABS: Amorphous Sediment 1+; Bacteria 2+ /hpf (None Seen); Mucous, Urine 1+ /hpf (<or=2+); Red Blood Cells-Urine 0-5 SEEN /hpf (0-5); Squamous Epithelial Cells - UA 0-5 SEEN /hpf (5-10); White Blood Cells 0-5 SEEN /hpf (0-5)
[2024-01-26 11:07] LABS: Lipase 33 U/L (13-75)
[2024-01-26 11:39] VITALS: BP 125/82; PULSE 64; RESP 14; O2SAT 98
[2024-01-26] MEDS: Potassium Chloride Oral Tablet 20 MEQ 40 MEQ PO (12:27)
[2024-01-26 12:54] LABS: AST(SGOT) 52 U/L (15-37); Alanine Aminotransfer ALT/SGPT 88 U/L (13-56); Albumin, Serum 3.7 g/dL (3.2-5.0); Alkaline Phosphatase 100 U/L (45-117); Bilirubin, Direct 0.19 mg/dL (0.00-0.30); Globulin 3.7 g/dL (2.2-4.2); Protein, Total 7.4 g/dL (6.4-8.2)
[2024-01-26 13:45] VITALS: BP 109/75; PULSE 72; RESP 15; TEMP 36.2; O2SAT 96
== END 2024-01-26 13:46 | disposition home or self-care (01) ==
PROVIDERS: Emergency Provider Emergency Medicine; PCP Family Medicine; Visit Provider Emergency Medicine
DX: R11.2 Nausea with vomiting, unspecified (principal); R19.7 Diarrhea, unspecified; R10.13 Epigastric pain; R51.9 Headache, unspecified; Z79.899 Other long term (current) drug therapy
CPT/HCPCS: 80048; 80076; 81001; 83690; 84703; 85025; 96361; 96374; 99283; J7030; A4216; J2405

== ENCOUNTER → 2024-01-27 | Outpatient (CLI) | payer OTHER, SELFPAY ==
[2024-01-27 12:37] LABS: AST(SGOT) 40 U/L (15-37); Alanine Aminotransfer ALT/SGPT 90 U/L (13-56); Albumin, Serum 3.8 g/dL (3.2-5.0); Alkaline Phosphatase 102 U/L (45-117); Anion Gap 10 (5-15); BUN 7 mg/dL (7-18); BUN/Creat Ratio 8.7 RATIO (10-20); CRP < 2.90 mg/L (0.0-3.0); Calcium,Total 9.6 mg/dL (8.5-10.1); Chloride 105 mmol/L (98-107); EST Glomerular Filtration Rate 88 mL/min (>60); Est Glom Filt Rate - Afr Amer 106 mL/min (>60); Glucose 89 mg/dL (74-106); Potassium 3.8 mmol/L (3.5-5.1); Protein, Total 7.8 g/dL (6.4-8.2); Sodium Level 139 mmol/L (136-145)
[2024-01-28 17:07] LABS: EBV Acute VCA IgM < 36.0 U/mL (0.0-35.9); EBV Early Antigen IgG <9.0 U/mL (0.0-8.9); EBV-VCA IgG > 600.0 U/mL (0.0-17.9)
== END | disposition home or self-care (01) ==
LOC: MTLAB 09:17
PROVIDERS: PCP Family Medicine; Referring Provider Family Medicine; Visit Provider Family Medicine
DX: K52.9 Noninfective gastroenteritis and colitis, unspecified (principal)
CPT/HCPCS: 36415; 80053; 86140; 86663; 86664; 86665

== ENCOUNTER → 2024-01-28 | Outpatient (CLI) | payer OTHER, SELFPAY | END | disposition home or self-care (01) | LOC: MTLAB 09:17 | PROVIDERS: PCP Family Medicine; Referring Provider Family Medicine; Visit Provider Family Medicine | DX: K52.9 Noninfective gastroenteritis and colitis, unspecified (principal) | CPT/HCPCS: 87177; 87209; 87329; 87493; 87506 ==

== ENCOUNTER → 2024-01-30 | Outpatient (CLI) | payer OTHER, SELFPAY ==
--- NOTE | 2024-01-30 10:19 | US_ITS ---
INDICATION: bile duct stones EXAMINATION: Ultrasound US Abdomen Limited (quadrant) TECHNIQUE: Liao scale and color doppler imaging was performed of the right upper quadrant. COMPARISON: CT scan of the abdomen and pelvis of 06/27/2022 FINDINGS: LIVER: The liver is within normal limits in size and echogenicity measuring about 16 cm in length. The portal vein is patent with normal hepatopedal flow. No focal hepatic lesion. There is no free fluid. GALLBLADDER AND BILIARY TREE: Mild sludge is seen in the gallbladder. No gallstones are identified. Normal gallbladder wall measuring 4.3 mm. The proximal common bile duct measures 3.5 mm, which is within normal limits for the patient''s age. Sonographic Ortiz''s sign: Negative. PANCREAS: The pancreas is obscured by bowel gas. RIGHT KIDNEY: The right kidney measures 9.4 cm in length. The renal cortex measures 1 cm. No evidence of hydronephrosis US/Abdomen Limited IMPRESSION: Mild sludge in the gallbladder without evidence of gallstones or biliary dilatation. Electronically Signed: Issac Gr MD at 10:57 EDT ,
== END | disposition home or self-care (01) ==
PROVIDERS: PCP Family Medicine; Referring Provider Family Medicine; Visit Provider Family Medicine
DX: K80.50 Calculus of bile duct without cholangitis or cholecystitis without obstruction (principal)
CPT/HCPCS: 76705

== ENCOUNTER → 2024-03-02 | Outpatient (CLI) | payer OTHER, SELFPAY ==
[2024-03-02 12:35] LABS: Erythrocyte Sedimentation Rate 13 mm/hr (0-30)
[2024-03-02 12:36] LABS: Absolute Lymphocyte Count 1.99 X10^3/uL (0.83-4.51); Absolute Neutrophil Count 9.6 X10^3/uL (2.0-7.7); Basophil# 0.05 X10^3/uL; Basophil% 0.4 % (0-1); Eosinophil# 0.09 X10^3/uL; Eosinophils% 0.7 % (0-5); Hematocrit 45.3 % (37-47); Hemoglobin 15.4 g/dL (12.0-15.0); Lymphocyte # 1.99 X10^3/ul (0.83-4.51); Mean Corpuscular Hgb 30.4 pg (27.0-32.0); Mean Corpuscular Volume 89.3 fL (81-99); Mean Platelet Vol. 10.3 fl (6.2-12.0); Monocyte# 0.71 X10^3/uL; Monocyte% 5.7 % (0-10); NRBC Flagged by Analyzer 0 % (0-5); Neutrophil # 9.56 X10^3/uL (2.7-7.7); Neutrophil % 76.9 % (47-70); Platelet Count 334 K/mm3 (150-450); RBC Distribution Width CV 11.6 % (11.6-14.6); RBC Distribution Width SD 36.9 fl (35.1-43.9); Red Blood Count 5.07 M/mm3 (4.2-5.4); White Blood Count 12.4 K/mm3 (4.4-11.0)
[2024-03-02 13:17] LABS: AST(SGOT) 30 U/L (15-37); Alanine Aminotransfer ALT/SGPT 66 U/L (13-56); Albumin, Serum 4.3 g/dL (3.2-5.0); Alkaline Phosphatase 109 U/L (45-117); Anion Gap 9 (5-15); BUN 12 mg/dL (7-18); BUN/Creat Ratio 14.1 RATIO (10-20); CRP < 2.90 mg/L (0.0-3.0); Calcium,Total 9.8 mg/dL (8.5-10.1); Chloride 103 mmol/L (98-107); Creatinine, Serum 0.85 mg/dL (0.55-1.02); EST Glomerular Filtration Rate 82 mL/min (>60); Est Glom Filt Rate - Afr Amer 99 mL/min (>60); Globulin 4.1 g/dL (2.2-4.2); Glucose 81 mg/dL (74-106); Lipase 26 U/L (13-75); Potassium 3.6 mmol/L (3.5-5.1); Protein, Total 8.4 g/dL (6.4-8.2); Sodium Level 137 mmol/L (136-145)
[2024-03-03 11:09] LABS: ANTINUCLEAR ANTIBODIES DIRECT Negative (Negative)
== END | disposition home or self-care (01) ==
LOC: MFPLAB 10:56
PROVIDERS: PCP Family Medicine; Visit Provider Family Medicine
DX: R10.9 Unspecified abdominal pain (principal)
CPT/HCPCS: 36415; 80053; 83690; 85025; 85652; 86038; 86140

== ENCOUNTER → 2024-03-03 | Outpatient (CLI) | payer OTHER, SELFPAY ==
--- NOTE | 2024-03-03 09:46 | NM_ITS ---
CLINICAL: Female, 34 years old. Sludge in gallbladder. Need to know gallbladder function -- Patient vomits and has a lot of pain every day NUCLEAR BILIARY SCAN TECHNIQUE: Following the intravenous administration of 5.8 mCi of Tc Mebrofenin, hepatobiliary images was performed. 1.8 mcg of Cholecystokinin was then administered intravenously over a 30 minute period. COMPARISON STUDIES : NM - None. CR - Not available for review at this time. CT - CT abdomen and pelvis with contrast 06/27/2022. MR - Not available for review at this time. US - 01/30/2024. FINDINGS: Relatively prompt and homogeneous radiopharmaceutical concentration is noted by a normal sized liver. There are no parenchymal defects noted.. Gallbladder activity is identified at 15 minutes post radiopharmaceutical administration. Small bowel activity is identified at 30 minutes post radiopharmaceutical administration. Washout of the radiopharmaceutical by the hepatic parenchyma occurs in a normal fashion on qualitative inspection. The post Cholecystokinin gallbladder ejection fraction is calculated at 10, 20 and 30 minutes following Cholecystokinin administration was noted to be 0% (normal greater than 35%). NM/Hepatobilliary Img w/Pharm Int IMPRESSION: Normal hepatobiliary scan but abnormal ejection fraction of 0% consistent with acalculous cholecystitis. A gallbladder ejection fraction calculated to be greater than 35% following the administration of Cholecystokinin makes the probability of functional hepatobiliary disease (gallbladder and/or sphincter of Oddi dyskinesia) and/or organic hepatobiliary disease (chronic acalculous cholecystitis and/or cystic duct syndrome) to be low. (Julieth Garcia, Journal of Nuclear Medicine 32:1695, 1990). Electronically Signed: Viraj Carrillo MD at 12:50 EDT ,
== END | disposition home or self-care (01) ==
PROVIDERS: PCP Family Medicine; Referring Provider Family Medicine; Visit Provider Family Medicine
DX: K82.8 Other specified diseases of gallbladder (principal)
CPT/HCPCS: 78227; A9537; J2805

== ENCOUNTER → 2024-03-10 | Outpatient (CLI) | payer OTHER, SELFPAY ==
[2024-03-10 14:35] LABS: Absolute Lymphocyte Count 3.37 X10^3/uL (0.83-4.51); Absolute Neutrophil Count 7.2 X10^3/uL (2.0-7.7); Basophil# 0.05 X10^3/uL; Basophil% 0.4 % (0-1); Eosinophil# 0.24 X10^3/uL; Eosinophils% 2.1 % (0-5); Hematocrit 43.1 % (37-47); Hemoglobin 14.5 g/dL (12.0-15.0); Lymphocyte # 3.37 X10^3/ul (0.83-4.51); Mean Corp Hgb Conc 33.6 g/dL (32-36); Mean Corpuscular Hgb 30.5 pg (27.0-32.0); Mean Corpuscular Volume 90.7 fL (81-99); Mean Platelet Vol. 9.8 fl (6.2-12.0); Monocyte# 0.71 X10^3/uL; Monocyte% 6.1 % (0-10); NRBC Flagged by Analyzer 0 % (0-5); Neutrophil # 7.18 X10^3/uL (2.7-7.7); Neutrophil % 61.9 % (47-70); Platelet Count 309 K/mm3 (150-450); RBC Distribution Width CV 11.5 % (11.6-14.6); RBC Distribution Width SD 38.4 fl (35.1-43.9); Red Blood Count 4.75 M/mm3 (4.2-5.4); White Blood Count 11.6 K/mm3 (4.4-11.0)
[2024-03-10 14:56] LABS: AST(SGOT) 8 U/L (15-37); Alanine Aminotransfer ALT/SGPT 28 U/L (13-56); Albumin, Serum 4.1 g/dL (3.2-5.0); Alkaline Phosphatase 103 U/L (45-117); Bilirubin, Direct 0.11 mg/dL (0.00-0.30); Globulin 3.7 g/dL (2.2-4.2); Protein, Total 7.8 g/dL (6.4-8.2)
--- OUTSIDE RECORDS SUMMARY | 2024-03-10 15:57 | XMS RPT_ITS | CCD ---
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 The complete report is available in the patient's medical record. If you cannot access the medical record, please contact the sending organization for a detailed fax or copy. [facility] 1990 [id number] Exam Date/Time: 12/24/2023 10:09 Procedure: BI US BREAST LIMITED RIGHT Ordering Provider: HEARD CARMEN Reason For Exam: LUMP IN BREAST RISK ALERT: The Cancer Risk Assessment scores below the recommendation of this report contain an outcome above the normal risk range. PATIENT CANCER HISTORY: No Personal History of Cancer FAMILY CANCER HISTORY: Maternal Grandmother Breast Cancer age 55 Paternal Aunt Breast Cancer age 45 DIAGNOSTIC MAMMOGRAM AND TARGETED ULTRASOUND: COMPARISON: None MAMMOGRAM: Image views: 2D CC and MLO views 3D CC and MLO views Images were reviewed with CAD Markings on images: BB's = Nipples; skin lesions Open ki[place] tribe = Palpable Line = Scar TISSUE DENSITY: BIRADS B - There are scattered fibroglandular densities. FINDINGS: This baseline mammogram is performed to evaluate for tenderness in the right upper-outer quadrant. No suspicious mass, architectural distortion or cluster of microcalcifications. No skin thickening or retraction. BREAST ULTRASOUND: FINDINGS: Ultrasonographic evaluation of the right breast performed at the 10:00 position at 7 cm from the nipple at the site of tenderness demonstrates no cystic or solid lesion. IMPRESSION: No abnormality ASSESSMENT: Category 1 Negative RECOMMENDATION: Routine screening at age 40 CANCER RISK ASSESSMENT: This risk assessment is based on patient provided information collected in a risk survey taken at the time of this examination. LIFETIME BREAST CANCER RISK: Chelsea 8: 22.77% - If greater than or equal to 20%, consider annual mammogram and annual screening Breast MRI or follow up in high risk clinic. Is the patient at elevated risk based on the HBOC criteria? Yes (Hereditary Breast and Ovarian Cancer) - If Yes, consider genetic counseling and testing with high risk follow up Is the patient at elevated risk based on the Bennett Syndrome criteria? No - If Yes, consider genetic counseling and testing with high risk follow up. Report Dictated on Electronically Signed By: Dima Richardson MD Electronically Signed Date/Time: 12/24/2023 10:14 AM EDT [facility] Gift Card Impressions [facility] DBT Breast - bilateral diagn osticon 12-24-2023 Patient Name: ANGELA KING : 1990 Exam Date/Time: 12/24/2023 09:38 Procedure: BI MAMMOGRAM DIAGNOSTIC TOMOSYNTHESIS BILATERAL Ordering Provider: HEARD CARMEN Reason For Exam: RISK ALERT: The Cancer Risk Assessment scores below the recommendation of this report contain an outcome above the normal risk range. PATIENT CANCER HISTORY: No Personal History of Cancer FAMILY CANCER HISTORY: Maternal Grandmother Breast Cancer age 55 Paternal Aunt Breast Cancer age 45 DIAGNOSTIC MAMMOGRAM AND TARGETED ULTRASOUND: COMPARISON: None MAMMOGRAM: Image views: 2D CC and MLO views 3D CC and MLO views Images were reviewed with CAD Markings on images: BB's = Nipples; skin lesions Open ki[place] tribe = Palpable Line = Scar TISSUE DENSITY: BIRADS B - There are scattered fibroglandular densities. FINDINGS: This baseline mammogram is performed to evaluate for tenderness in the right upper-outer quadrant. No suspicious mass, architectural distortion or cluster of microcalcifications. No skin thickening or retraction. BREAST ULTRASOUND: FINDINGS: Ultrasonographic evaluation of the right breast performed at the 10:00 position at 7 cm from the nipple at the site of tenderness demonstrates no cystic or solid lesion. [facility] Dima Richardson MD - 12/24/2023 Patient Name: ANGELA KING : 1990 [facility]#: [id number] Exam Date/Time: 12/24/2023 09:38 Procedure: BI MAMMOGRAM DIAGNOSTIC TOMOSYNTHESIS BILATERAL Ordering Provider: HEARD CARMEN Reason For Exam: RISK ALERT: The Cancer Risk Assessment scores below the recommendation of this report contain an outcome above the normal risk range. PATIENT CANCER HISTORY: No Personal History of Cancer FAMILY CANCER HISTORY: Maternal Grandmother Breast Cancer age 55 Paternal Aunt Breast Cancer age 45 DIAGNOSTIC MAMMOGRAM AND TARGETED ULTRASOUND: COMPARISON: None MAMMOGRAM: Image views: 2D CC and MLO views 3D CC and MLO views Images were reviewed with CAD Markings on images: BB's = Nipples; skin lesions Open [place] tribe = Palpable Line = Scar TISSUE DENSITY: BIRADS B - There are scattered fibroglandular densities. FINDINGS: This baseline mammogram is performed to evaluate for tenderness in the right upper-outer quadrant. No suspicious mass, architectural distortion or cluster of microcalcifications. No skin thickening or retraction. BREAST ULTRASOUND: FINDINGS: Ultrasonographic evaluation of the right breast performed at the 10:00 position at 7 cm from the nipple at the site of tenderness demonstrates no cystic or solid lesion. IMPRESSION: No abnormality ASSESSMENT: Category 1 Negative RECOMMENDATION: Routine screening at age 42 CANCER RISK ASSESSMENT: This risk assessment is based on patient provided information collected in a risk survey taken at the time of this examination. LIFETIME BREAST CANCER RISK: Chelsea 8: 22.77% - If greater than or equal to 20%, consider annual mammogram and annual screening Breast MRI or follow up in high risk clinic. Is the patient at elevated risk based on the HBOC criteria? Yes (Hereditary Breast and Ovarian Cancer) - If Yes, consider genetic counseling and testing with high risk follow up Is the patient at elevated risk based on the Bennett Syndrome criteria? No - If Yes, consider genetic counseling and testing with high risk follow up. Report Dictated on Electronically Signed By: Dima Richardson MD Electronically Signed Date/Time: 12/24/2023 10:14 AM EDT [facility] Radiology Study observation (narrative) Alexis richard No Panel Informationon 12-23 No abnormality ASSESSMENT: Category 1 Negative RECOMMENDATION: Routine screening at age 42 CANCER RISK ASSESSMENT: This risk assessment is based on patient provided information collected in a risk survey taken at the time of this examination. LIFETIME BREAST CANCER RISK: Chelsea 8: 22.77% - If greater than or equal to 20%, consider annual mammogram and annual screening Breast MRI or follow up in high risk clinic. Is the patient at elevated risk based on the HBOC criteria? Yes (Hereditary Breast and Ovarian Cancer) - If Yes, consider genetic counseling and testing with high risk follow up Is the patient at elevated risk based on the Bennett Syndrome criteria? No - If Yes, consider genetic counseling and testing with high risk follow up. Report Dictated on Electronically Signed By: Dima Richardson MD Electronically Signed Date/Time: 12/24/2023 10:14 AM [facility] No Panel InformationOrdered By: Dima Richardson on 12-24-2023 [facility] Work Phone: US Breast - right limitedon 12-24-2023 [facility] 1990 [id number] Exam Date/Time: 12/24/2023 10:09 Procedure: BI US BREAST LIMITED RIGHT Ordering Provider: HEARD CARMEN Reason For Exam: LUMP IN BREAST RISK ALERT: The Cancer Risk Assessment scores below the recommendation of this report contain an outcome above the normal risk range. PATIENT CANCER HISTORY: No Personal History of Cancer FAMILY CANCER HISTORY: Maternal Grandmother Breast Cancer age 55 Paternal Aunt Breast Cancer age 45 DIAGNOSTIC MAMMOGRAM AND TARGETED ULTRASOUND: COMPARISON: None MAMMOGRAM: Image views: 2D CC and MLO views 3D CC and MLO views Images were reviewed with CAD Markings on images: BB's = Nipples; skin lesions Open [place] tribe = Palpable Line = Scar TISSUE DENSITY: BIRADS B - There are scattered fibroglandular densities. FINDINGS: This baseline mammogram is performed to evaluate for tenderness in the right upper-outer quadrant. No suspicious mass, architectural distortion or cluster of microcalcifications. No skin thickening or retraction. BREAST ULTRASOUND: FINDINGS: Ultrasonographic evaluation of the right breast performed at the 10:00 position at 7 cm from the nipple at the site of tenderness demonstrates no cystic or solid lesion. [facility] Dima Richardson MD - 12/24/2023 Patient Name: ANGELA KING : 1990 [facility]#: [id number] Exam Date/Time: 12/24/2023 10:09 Procedure: BI US BREAST LIMITED RIGHT Ordering Provider: HEARD CARMEN Reason For Exam: LUMP IN BREAST RISK ALERT: The Cancer Risk Assessment scores below the recommendation of this report contain an outcome above the normal risk range. PATIENT CANCER HISTORY: No Personal History of Cancer FAMILY CANCER HISTORY: Maternal Grandmother Breast Cancer age 55 Paternal Aunt Breast Cancer age 45 DIAGNOSTIC MAMMOGRAM AND TARGETED ULTRASOUND: COMPARISON: None MAMMOGRAM: Image views: 2D CC and MLO views 3D CC and MLO views Images were reviewed with CAD Markings on images: BB's = Nipples; skin lesions Open ki[place] tribe = Palpable Line = Scar TISSUE DENSITY: BIRADS B - There are scattered fibroglandular densities. FINDINGS: This baseline mammogram is performed to evaluate for tenderness in the right upper-outer quadrant. No suspicious mass, architectural distortion or cluster of microcalcifications. No skin thickening or retraction. BREAST ULTRASOUND: FINDINGS: Ultrasonographic evaluation of the right breast performed at the 10:00 position at 7 cm from the nipple at the site of tenderness demonstrates no cystic or solid lesion. IMPRESSION: No abnormality ASSESSMENT: Category 1 Negative RECOMMENDATION: Routine screening at age 42 CANCER RISK ASSESSMENT: This risk assessment is based on patient provided information collected in a risk survey taken at the time of this examination. LIFETIME BREAST CANCER RISK: Chelsea 8: 22.77% - If greater than or equal to 20%, consider annual mammogram and annual screening Breast MRI or follow up in high risk clinic. Is the patient at elevated risk based on the HBOC criteria? Yes (Hereditary Breast and Ovarian Cancer) - If Yes, consider genetic counseling and testing with high risk follow up Is the patient at elevated risk based on the Bennett Syndrome criteria? No - If Yes, consider genetic counseling and testing with high risk follow up. Report Dictated on Electronically Signed By: Dima Richardson MD Electronically Signed Date/Time: 12/24/2023 10:14 AM EDT [facility] Radiology Study observation (narrative) [facility] Encounters Encounter Date Encounter Type Care Provider Facility Start: 12-24-2023 End: 12-24-2023 Subsequent hospital visit by physician Teo Bi Exam Room 1 [facility] Comment on above: Unspecified lump in unspecified breast Start: 12-24-2023 End: 12-24-[address] [facility] Procedures Date Procedure Procedure Detail Performing Clinician Start: 12-24-2023 Us breast uni real t uzma with image limited Mariana Heard Work Phone: Start: 12-24-2023 Diagnostic mammograp hy computer-aided detcj bi Mariana Heard Work Phone: Plan of Treatment Date Care Activity Detail Author Start: 2052 RSV Immunization age d 60 or older (1 - 1-dose 60+ series) RSV Immunization aged 60 or older (1 - 1-dose 60+ series) [facility] Start: 01-04-2042 Zoster Vaccines (1 of 2) Zoster Vacc suki (1 of 2) [facility] Start: 02-09-2032 DTaP/Tdap/Td Vaccine s (7 - Td or Tdap) DTaP/Tdap/Td Vaccines (7 - Td or Tdap) [facility] Start: 01-19-2024 Influenza vaccination Influenza Vacc ine (#1) [facility] Start: 01-18-2023 COVID-19 Vaccine ( season) COVID-19 Vaccine ( season) [facility] Start: 01-04-2022 Screening for malign ant neoplasm of cervix [facility] Start: 01-04-2013 Screening for malign ant neoplasm of cervix Pap Smear [facility] Start: 01-04-2010 Hepatitis C screening Hepatitis C Sc reening [facility] Start: 01-24-2005 Varicella vaccination Varicell a Vaccines (1 of 2 - 13+ 2-dose series) [facility] Start: 2004 Depression Screening Depression Scre ening [facility] Start: 1990 HIV screening HIV Screening [facility] Start: 1990 Lipid panel [facility]id Panel [facility] Immunizations Immunization Date Immunization Notes Care Provider Arei norton 03-10-2021 influenza virus vacc ine, unspecified formulation Ach 4 [facility] Payers Date Payer Category Payer Private Health Insurance [facility] [id number] 2023-Present [address] [place] [address] Commercial [id number] 2023 Private Health Insurance [id number] Social History Date Type Detail Facility Start: 12-24-2023 Tobacco smoking status NHIS Never sm oked tobacco [facility] Start: 12-24-2023 Tobacco use and exposure Smokeless t obacco non-user [facility] Start: 1990 Sex assigned at Not on file [facility] Gender identity Not on file [facility] Evaluation note Note Date & Type Note Facility Evaluation note Diagnosis Unspecified lump in unspecified breast documented in this encounter [facility] Summary Purpose Family History No Family History Records Found Advance Directives No Advanced Directives Records Found Additional Source Comments INFORMATION SOURCE (unrecogn ized section and content) DATE CREATED AUTHOR 12/26/2023 [facility] FOR RECORDS PERTAINING TO PATIENTS WHO ARE OR HAVE BEEN ENROLLED IN A CHEMICAL DEPENDENCY/SUBSTANCEABUSE PROGRAM, SOME INFORMATION MAY BE OMITTED. This clinical summary was aggregated from multiple sources. Caution should be exercised in using it in the provision of clinical care. This summary normalizes information from multiple sources, and as a consequence, information in this document may materially change the coding, format and clinical context of patient data. In addition, data may be omitted in some cases. CLINICAL DECISIONS SHOULD BE BASED ON THE PRIMARY CLINICAL RECORDS. [facility] provides no warranty or guarantee of the accuracy or completeness of information in this document.
== END | disposition home or self-care (01) ==
LOC: PAVLAB 14:21
PROVIDERS: PCP Family Medicine; Referring Provider Surgery; Visit Provider Surgery
DX: R94.8 Abnormal results of function studies of other organs and systems (principal); R10.11 Right upper quadrant pain
CPT/HCPCS: 36415; 80076; 85025

== ENCOUNTER 2024-03-18 05:52 | Day surgery (SDC) | payer OTHER, SELFPAY ==
--- NOTE | 2024-03-17 | GALL_PTH ---
PATIENT: MOSHE SEVERINO LOC: [facility] [place] U#:[id number] AGE/SX: 34/F ROOM: RE03/18/[address]: Dr. Jillian Martin MD : 1990 BED: DIS: 03/18/2024 SPEC #: [id number] RECD: 03/18/24 12:36 STATUS: PATRICIO JUANA #: [id number] JOSE: 03/17/24 00:[address]: Jillian Martin DEPT: SURGICAL PATHOLOGY RECD BY: Ash Mo ENTERED: 03/18/24 12:36 SP TYPE: MEAGAN MUNOZ DR: Dr. Jerrell Segundo MD Tissues: Gallbladder, NOS Procedures: Surgery Specimen Level III HEADER OPERATION: Laparoscopic, cholecystectomy with IOC PRE-OP DIAGNOSIS: Right upper quadrant pain, gallbladder sludge, abnormal biliary HIDA scan TISSUE SUBMITTED: Gallbladder MICROSCOPIC DIAGNOSIS Gallbladder, cholecystectomy: Chronic cholecystitis and cholesterolosis. See idris. 03/19/2024 COMMENT No stones are identified in the container or in the gallbladder. MICROSCOPIC DESCRIPTION Slides are reviewed. GROSS DESCRIPTION Received is one container labeled with the patient's name and designated gallbladder. The specimen consists of a gallbladder measuring 8.5 cm in length and up to 4.0 cm in diameter. The external surface is pink-yeager, smooth and glistening for the most part. Focally it is granular, hemorrhagic and contains cautery artifact. The gallbladder contains green-yellow mucoid bile. No stones are identified in the container or in the gallbladder. The mucosa also shows several yellowish streaks consistent with cholesterolosis. The mucosa is bile-stained and without any mass lesions. The gallbladder wall measures up to 0.2 cm in thickness. Chemistry Quality Control Technician sections from the gallbladder and the cystic duct are submitted in one cassette. / SJ: 03/18/2024 TC:3 CPT: 01474
[2024-03-18] VITALS (12 sets, daily range): BP systolic 128–152; BP diastolic 69–86; PULSE 7–109; RESP 14–20; TEMP 36.1–36.9; O2SAT 95–99; BMI 34.0
--- NOTE | 2024-03-18 06:00 | EKG12_ITS ---
Test Reason : pre op Blood Pressure : */* mmHG Vent. Rate : 73 BPM Atrial Rate : 73 BPM P-R Int : 132 ms QRS Dur : 88 ms QT Int : 374 ms P-R-T Axes : 59 37 38 degrees QTcB Int : 412 ms Normal sinus rhythm Normal ECG No previous ECGs available Confirmed by Papo Yip ([id number]), telegraph editor JOHN ABDULLAHI ([id number]) on 03/24/2024 1:08:16 PM Referred By: Jillian Martin Confirmed By: Papo Yip
[2024-03-18] MEDS: Lactated Ringers 1,000 ML 15 ML IV (06:39)
[2024-03-18 06:44] LABS: Internal QC Validated? YES +Cl - CLEAR BKGD; Pregnancy, Urine Negative Negative; Record Kit Lot#,Urine Preg 869294
--- NOTE | 2024-03-18 07:01 | PCM.PRE.AN2 ---
ASA Classification* ASA Classification ASA Classification: 2 (SEE WRITTEN PRE ANESTHESIA RECORD FOR FULL ASSESSMENT) Assessment & Plan Anesthesia* Anesthesia Assessment Anesthesia Assessment: Discussed sedation and/or anesthesia options, risks, benefits, and alternatives with patient/parents/legal guardian/POA. Questions invited. The patient/parents/legal guardian/POA seems to understand and agrees to proceed with anesthesia plan. Reviewed the physical assessment, medical history, allergy history and patient home medications list prior to surgery/procedure/anesthetic and documented any changes. Performed airway and anesthesia risk assessments. Anesthesia Type Anesthesia Type: General (SEE WRITTEN PRE ANESTHESIA RECORD FOR FULL ASSESSMENT) Anesthesia Focused Assessment* Temperature: 98.4 F Pulse Rate: 75 Blood Pressure: 128/80 Respiratory Rate: 16 Pulse Ox: 99 Airway Assessment Mouth opens: >3 cm Mallampati Score: III Focused Labs Anesthesia Preop lab: CBC WBC 11.6 K/mm3 (4.4-11.0) H 03/10/24 14:28 RBC 4.75 M/mm3 (4.2-5.4) 03/10/24 14:28 Hgb 14.5 g/dL (12.0-15.0) 03/10/24 14:28 Hct 43.1 % (37-47) 03/10/24 14:28 Plt Count 309 K/mm3 (150-450) 03/10/24 14:28 CHEMISTRY Potassium 3.6 mmol/L (3.5-5.1) 03/02/24 10:56 Sodium 137 mmol/L (136-145) 03/02/24 10:56 Magnesium 2.3 mg/dL (1.6-2.6) 08/17/20 12:23 BUN 12 mg/dL (7-18) 03/02/24 10:56 Creatinine 0.85 mg/dL (0.55-1.02) 03/02/24 10:56 Glucose 81 mg/dL (74-106) 03/02/24 10:56 TSH 0.94 uIU/mL (0.358-3.74) 07/03/22 10:00 COAG PT 13.5 SECONDS (11.7-14.9) 01/21/18 08:40 HCG, Quant 15 mIU/mL (<9 non-preg) H 12/21/16 14:58 Urine Test Negative Negative 03/18/24 06:05 Pre-Assessment Diagnosis/Proposed Procedure Planned Operative Procedure(s): Laparoscopic, Cholecystectomy with IOC Anesthesia History 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 When Was Last Pacemaker Check QUESTION #4 FULL TEXT: You/Your Family Experience fever (hyperthermia) with Anesthesia Last Oral Intake Last Oral intake: Last Oral Intake NPO since 00:00 03/18/24 06:36 Meds taken in AM with sips of Yes 03/18/24 06:36 water? Meds patient instructed to esatalapramoxalate 03/18/24 06:36 take am of surgery PONV PONV - paper products supervisor: PONV - paper products supervisor Female Yes 03/13/24 11:00 HX of Motion Sickness Yes 03/13/24 11:00 HX of N/V After Surgery No 03/13/24 11:00 Non-Smoker Yes 03/13/24 11:00 Duration of Surgery greater Yes 03/13/24 11:00 than 60 minutes Number of Risk Factors 4 03/13/24 11:00 PONV Score Severe Risk 03/13/24 11:00 Height & Weight Height & Weight: Anesthesia: Height & Weight Height 5 ft 4 in 03/18/24 06:36 Weight: 90 kg 03/18/24 06:36 Body Mass Index (BMI) 34.0 03/18/24 06:36 Respiratory Assessment Respiratory Assessment - paper products supervisor: Respiratory Tract Infection Hx - paper products supervisor Hx Respiratory Tract Infection No 03/13/24 11:00 STOP Sleep Apnea STOP Sleep Apnea - paper products supervisor: STOP Sleep Apnea - paper products supervisor Hx Hypertension No 03/13/24 11:00 Hx Sleep Apnea No 03/13/24 11:00 CPAP BIPAP Do you snore loudly (louder No 03/13/24 11:00 than talking or can be heard Do you often feel tired/ No 03/13/24 11:00 fatigued/ sleepy during daytime? Has anyone observed you stop No 03/13/24 11:00 breathing during sleep? STOP Results Negative 03/13/24 11:00 QUESTION #5 FULL TEXT : Do you snore loudly (louder than talking or can be heard through closed doors)? Tobacco Use History Tobacco Use History - paper products supervisor: Tobacco Use History - paper products supervisor Tobacco Use Smoking Status Never smoker 03/13/24 11:00 Hx Tobacco Use No 03/13/24 11:00 Years Smoking Packs Smoked per Day Smoking Cessation Date was within the last 15 years Hx Smoking Cessation Date Hx Smoking Cessation Counseling Hematologic Medial History Hematologic Hx - paper products supervisor: Hematologic Medical Hx - concession stand attendant Hx of Blood Transfusion No 03/13/24 11:00 Hx of Transfusion in last 3 No 03/13/24 11:00 Months Date of Last Transfusion (if within last 3 months) Ever experience any problems No 03/13/24 11:00 with transfusion(s)? Specify any problems Hx of Preganancy in last 3 N/A 03/13/24 11:00 Months Nurse Filling Out Transfusion NBUCHER 03/13/24 11:00 & Questions: Date: 03/13/24 03/13/24 11:00 Time: 11:01 03/13/24 11:00 Patient unable to answer at this time (ie. confused, unrespo /Reproduction History /Reproductive History - paper products supervisor: /Reproductive Hx- paper products supervisor Hx Now No 03/13/24 11:00 Gestational Age (in weeks): EDC: Hx Hx Para Hx Section SAB No 03/13/24 11:00 Active Medications Active Medications: Current Medications Generic Name Dose Route Start Last Admin Trade Name Freq PRN Reason Stop Dose Admin Cefazolin Sodium 2 gm/ N/A 20 mls @ 400 mls/hr 03/18/24 07:30 IV 03/18/24 07:32 PREOP ONE Lactated Ringer's 1,000 mls @ 15 mls/hr 03/18/24 06:15 03/18/24 06:39 IV 03/23/24 19:34 15 mls/hr .Q48H SANDRA Administration Protocol PFSH Medical History Wears glasses Anxiety Marijuana use Heartburn Non-smoker RUQ pain Abnormal biliary HIDA scan Acute sinusitis, unspecified Diarrhea Fatigue Home Medications ?Medication ?Instructions ?Recorded ?Last Taken ?Type escitalopram oxalate 10 mg tablet 15 mg PO DAILY 12/18/23 03/18/24 History ondansetron 4 mg disintegrating 4 mg PO Q8H PRN PRN Nausea #10 tabs 01/23/24 03/17/24 Rx tablet promethazine 25 mg tablet 25 mg PO Q6H PRN PRN Nausea #10 01/26/24 03/17/24 Rx TABLETS omeprazole 20 mg capsule,delayed 20 mg PO DAILY 03/13/24 Unknown History release Allergy/AdvReac Type Severity Reaction Status Date / Time No Known Allergies Allergy Verified 03/13/24 10:59 Family History Aunt Breast cancer Grandmother Breast cancer Diabetes Grandfather Heart disease Mother Hypertension Diabetes Father Hypertension Heart disease Social History adopted: No household members: spouse and children housing: house number of children: 2 current occupational status: employed 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 current occupational exposures/hazards: No pets and animals: Yes pets and animals: cat(s) and dog(s) history of recent travel: No sexually active: Yes Smoking Status: Never smoker alcohol intake: current alcohol intake frequency: holidays/special occasions only Alcohol type: hard liquor substance use type: marijuana well-balanced diet: about half the time caffeine: Yes Type: coffee Number of servings: 2 eating out: rarely or never giancarlo/rastafarian: Advent seatbelt use: always do you feel safe at home: Yes 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
--- NOTE | 2024-03-18 07:09 | PCM.HP.BLA ---
History and Physical Date of Admission: 03/18/24 Date of Service: 03/10/24 MR#: [id number] Acct: [id number] Name: MOSHE SEVERINO Rep #: [id number] : 1990 Provider: Dr. Jililan Martin MD Age/Sex: 34/F Location: 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 Credit Risk current occupational exposures/hazards: No pets and animals: Yes pets and animals: cat(s) and dog(s) history of recent travel: No sexually active: Yes Smoking Status: Never smoker alcohol intake: current alcohol intake frequency: holidays/special occasions only Alcohol type: hard liquor substance use type: marijuana well-balanced diet: about half the time caffeine: Yes Type: coffee Number of servings: 2 eating out: rarely or never giancarlo/yarsanism: Gnosticist seatbelt use: always do you feel safe at home: Yes 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 Patient currently rates the pain about a 3/10. Patient states she gets pain after eating typically at about 5 to 10 minutes. Patient had 2 larger episodes 1 in January 1 in February. Patient had sludge noted on her gallbladder ultrasound. Patient also had a HIDA scan that showed a 0% ejection fraction and also reproduce the pain. Patient's denies any reflux history or symptoms. Patient did previously have a slight elevation of AST and ALT in early/mid January as well as white blood count 12.4 in mid February. Patient states she is eating a bland diet but is able to eat and drink. ROS General General: No weight change, appetite, fatigue, colon cancer or breast cancer HEENT HEENT: No difficulty swallowing, eye injury, eye surgery, swollen glands or hoarseness Endo Endocrine: No thyroid disease, diabetes mellitus, thyroid cancer, Hair loss, heat intolerance or cold intolerance Skin Skin: No rash or changing moles Musc Musculoskeletal: No back problems, arthritis, rheumatoid arthritis, gout or joint pain Cardio Cardiovascular: No murmur, pacemaker, heart disease, atrial fibrillation, high blood pressure, heart attack, heart stent, palpitations, shortness of breat with exertion or chest pain Psych Psychiatric: No depression, anxiety or hearing voices Resp Respiratory: No shortness of breath, No sleep apnea, No cough, No COPD, No asthma, No emphysema and No wheezing Gastro Gastrointestinal: Yes abdominal pain, Yes nausea or vomiting, No diarrhea, No constipation, No blood in stool, No acid reflux, No hemorrhoids, No ulcers, Yes gallbladder problem and No black,tarry stools Mika Hematologic: No blood thinners, No blood disorders, No bleeding, No anemia and No blood clots Neuro Neurologic: No numbness and No tingling Exam Const General: cooperative, healthy appearing, comfortable and no acute distress HENMT Head: normocephalic and atraumatic Neck Neck: supple Resp Effort & Inspection: normal respiratory effort Cardio Rate: regular rate GI Inspection: non-distended Palpation: soft, no hernias and nontender Skin General: no rashes or lesions noted Neuro General: CN's II-XI intact bilaterally Extrem General: normal to inspection Psych Mental Status: mental status grossly normal Attitude: cooperative Assessment and Plan Assessment and Plan (1) RUQ pain: Status: Acute (2) Gallbladder sludge: Status: Acute (3) Abnormal biliary HIDA scan: Status: Acute Orders: Orders CBC W/Diff, Automated 03/10/24 R10.11 - Right upper quadrant pain, R94.8 - Abnormal results of function studies of other organs and systems Liver Profile 03/10/24 R10.11 - Right upper quadrant pain, R94.8 - Abnormal results of function studies of other organs and systems Plan Will check patient CBC as well as liver profile. Patient's white blood count slightly down 11.6, patient's LFTs are normal. Reviewed the anatomy with the patient and discussed the procedure: laparoscopic cholecystectomy with possible cholangiograms, possible open. Review risks including but not limited to bleeding, infection, hernia, bile leak, retained gallstones requiring another procedure ERCP- Endoscopic Retrograde Cholangiopancreatography, injury to another organ (bile ducts, common bile duct, small bowel, etc.) and conversion to an open procedure. All questions were answered. Jillian Martin M.D. Pager: [phone] [facility] [address] [place] [address], [address] [place] [address] Office: [phone] Coding Level of Care Code Off vis,new,level 3 Diagnoses RUQ pain R10.11 Gallbladder sludge K82.8 Abnormal biliary HIDA scan R94.8 Clinical Quality Measures Falls Risk Screening/Assistive Devices Have you fallen in the past year?: No 03/11/24 1553 <Electronically signed by Jillian Martin MD> Date Jillian Mratin MD
[2024-03-18] MEDS: Cefazolin 2 GM in Syringe IV (07:27)
--- NOTE | 2024-03-18 08:00 | RAD_ITS ---
STUDY: INTRAOPERATIVE CHOLANGIOGRAPHY. REASON FOR EXAM: Female, 34 years old. Laparoscopic cholecystectomy. FLUOROSCOPY TIME (if supplied): ( 7 seconds ) minutes/seconds. 3.61 mGy. TECHNIQUE: An intraoperative cholangiogram was performed by the surgeon. Imaging was submitted. COMPARISON: None. FINDINGS: The visualized intra and extrahepatic biliary ducts are unremarkable. No intraluminal filling defect is seen. There is free flow of contrast into the duodenum. RAD/Cholangiogram/ O R,Initial IMPRESSION: Unremarkable intraoperative cholangiogram. Electronically Signed: Shree Rain MD at 13:57 EDT ,
[2024-03-18] MEDS: Bupivacaine Mpf 0.5% 30 ML VIAL (08:40)
--- NOTE | 2024-03-18 08:46 | PCM.OPRPT ---
Operative Report (Standard) Operative Information Surgery/Procedure Performed: Laparoscopic cholecystectomy with cholangiograms Surgeon: Jillian Martin Date of Procedure: 03/18/24 Procedure Start Time: 07:48 Procedure Stop Time: 08:52 Pre-Operative Diagnosis: Gallbladder sludge, right upper quadrant pain Post-Operative Diagnosis: Same Select all DRAINS/GRAFTS/IMPLANTS that apply: None Type of Anesthesia: General/Supplemental Special Medications: Ancef 2 g IV x 1 Estimated Blood Loss: <10 cc Specimen collected: Yes Description of specimen(s) removed: Gallbladder Description of surgery: Indications: this is a 34 year-old female who developed abdominal pain/nausea/vomiting and on workup was found to have gallbladder sludge, with a normal common bile duct, HIDA ejection fraction 0%. Laparoscopic cholecystectomy was elected. Description procedure: The patient was placed on operating table in supine position. A timeout was completed verifying correct patient, procedure, site, position and special equipment prior to beginning procedure. General Anesthesia was induced. The abdomen was prepped and draped in usual sterile fashion. An incision was made in the natural skin line above the umbilicus. The fascia was elevated and incised. The peritoneum was elevated and incised. Entry into the peritoneum was confirmed visually and no bowel was noted in the vicinity of the incision. Cabrera trocar was placed. The abdomen was insufflated with carbon dioxide to a pressure of 12-15 mmHg. Patient tolerated insufflation well. The laparoscope was then inserted and abdomen inspected. No injuries from initial trocar placement were noted. Additional trochars were then inserted in the following locations 5 mm trocar in the epigastrium and 2 more 5 mm trochars along the right costal margin. The abdomen was inspected no abnormalities were found. The table is placed in reverse Trendelenburg position with the right side up. The dome of the gallbladder was grasped with atraumatic grasper passed through the lateral port and retracted over the dome of the liver. Infundibulum was then grasped with atraumatic grasper through the midclavicular port and retracted to the right lower quadrant. This maneuver exposed Calot's triangle. The peritoneum overlying the gallbladder infundibulum was then incised and cystic duct and artery identified and circumferentially dissected. Mcmahon catheter was used for cholangiograms. The cholangiogram showed good filling of the common bile duct into the duodenum with no filling defects, good filling of the right and left bile ducts as well. The cystic duct and artery were then doubly clipped and divided close to the gallbladder. The gallbladder then dissected from its peritoneal attachments by electrocautery. Hemostasis was checked and the gallbladder and contained stones were removed using the endoscopic retrieval bag through the umbilical port. The gallbladder is passed off table as specimen. The gallbladder fossa was irrigated with saline and hemostasis obtained. There is no evidence of bleeding from the gallbladder fossa or cystic artery leakage of bile from the cystic duct stump. Secondary trochars removed under direct vision. No bleeding was noted the trocar sites. The laparoscope was withdrawn and umbilical trocar removed. The abdomen was allowed to collapse. The fascia of the 12 mm trocar was closed with a [id number] 0 Vicryl suture. The skin was closed with sutures of 4-0 Monocryl and Steri-Strips. The patient was extubated. The patient tolerated procedure well and was taken to the postanesthesia care unit in stable condition. Surgical Findings: Cholangiograms normal Fire Alarm Mechanic examining officer: Yes Database Administration Associate: Joanan Gill Tasks completed by acute care certified nursing assistant: Opening & closing and Retracting Complications Complications: No
--- NOTE | 2024-03-18 08:51 | EX.PCM.DISCH ---
Discharge Instructions Diet Discharge Diet: Light diet - advance as tolerated Activity Discharge Activity: May Not Drive (while taking narcotic pain medications.) May shower in (days): 1 Lifting Restrictions: no lifting >20 lbs x 2 wks, no strenuous exercise for 4 wks Dressing / Incision Call your doctor if your incision/area has: Continuous Slow Oozing, Sudden Increased Bleeding, Increased Pain/ Swelling, Increased Redness, Foul Smelling Discharge and Swelling at the incision site Call your doctor if you observe: Fever of 101 or Higher Remove Dressing in: 2 days Cleanse incision/area with: Soap & Water Additional Dressing/Incision Instructions:: Steri-Strips will fall off in 7 to 10 days, if they do not fall off okay to remove after 10 days. Follow Up Care Please Follow Up With: Jillian Martin MD When: Call the office for a follow-up appointment 2 weeks; after 5 PM and on the weekends call [phone] with any concerns. Test Results: Test results from this visit will be discussed in further detail at your follow-up appointment, if applicable. Discharge Plan Admission Attending Provider: Jillian Martin Primary Care Provider: Jerrell Segundo Instructions Print Language: Tajik Discharge Orders/Prescriptions Prescriptions: New oxycodone 5 mg capsule 5 mg PO Q6H PRN (Reason: pain) 3 Days Qty: 10 0RF Continued escitalopram oxalate 10 mg tablet 15 mg PO DAILY ondansetron 4 mg tablet,disintegrating 4 mg PO Q8H PRN PRN (Reason: Nausea) Qty: 10 0RF promethazine 25 mg tablet 25 mg PO Q6H PRN PRN (Reason: Nausea) Qty: 10 0RF omeprazole 20 mg capsule,delayed release(DR/EC) 20 mg PO DAILY Referrals / Follow Up: Jerrell Segundo MD [Primary Care Provider] - Disposition Disposition (needs filled in before D/C Order can be placed): Home, Self Care
--- NOTE | 2024-03-18 09:02 | PCM.POST.ANE ---
Anesthesia: Postop Eval I Current Vital Signs Temperature: 97.4 F Pulse Rate: 109 Blood Pressure: 152/82 Respiratory Rate: 18 Pulse Ox: 98 Oxygen Delivery Method: Room Air Assessment Airway patent: Yes Spontaneous unlabored respirations: Yes Mental status: Awake and Calm nausea: Yes Vomiting: Yes Anesthesia Complication: No Fluid Hydration Crystalloid volume administer (ml): 800 Total IV fluid infused: 800 Progress Note Anesthesia document: Postop Eval 1 completed: Yes
--- NOTE | 2024-03-18 09:18 | POSTOPAN2_ITS ---
Anesthesia Postop Eval I Sum Postop Eval Completion status Anesthesia document: Postop Eval 1 completed: Yes Anesthesia Postop Eval I Summary Anesthesia Postop Eval I Summary: Anesthesia Postop Eval I: Assessment Summary Airway patent Yes 03/18/24 09:08 CHAIN OFFBEARER.[email or web address] Spontaneous unlabored Yes 03/18/24 09:08 CHAIN OFFBEARER.GDOTT respirations Mental status Awake,Calm 03/18/24 09:08 CHAIN OFFBEARER.GDOTT nausea Yes 03/18/24 09:08 CHAIN OFFBEARER.GDOTT Vomiting Yes 03/18/24 09:08 CHAIN OFFBEARER.GDOTT Anesthesia Postop Eval I: Fluid Summary Crystalloid volume administer 800 03/18/24 09:08 CHAIN OFFBEARER.GDOTT (ml) Colloids volume administered ( ml) Blood Product volume administered (ml) Total IV fluid infused 800 03/18/24 09:08 CHAIN OFFBEARER.GDOTT Anesthesia Postop Eval I: Summary Notes Anesthesia Complication No 03/18/24 09:08 CHAIN OFFBEARER.GDOTT Anesthesia Complication Comment: Post-operative progress note Anesthesia: Postop Eval II Evaluation Mental status: Awake Pain Level: 0 nausea: No Vomiting: No
--- NOTE | 2024-03-18 09:18 | PCM.POSTANE2 ---
Anesthesia Postop Eval I Sum Postop Eval Completion status Anesthesia document: Postop Eval 1 completed: Yes Anesthesia Postop Eval I Summary Anesthesia Postop Eval I Summary: Anesthesia Postop Eval I: Assessment Summary Airway patent Yes 03/18/24 09:08 STARCH TREATING ASSISTANT.GDOTT Spontaneous unlabored Yes 03/18/24 09:08 STARCH TREATING ASSISTANT.GDOTT respirations Mental status Awake,Calm 03/18/24 09:08 STARCH TREATING ASSISTANT.GDOTT nausea Yes 03/18/24 09:08 STARCH TREATING ASSISTANT.GDOTT Vomiting Yes 03/18/24 09:08 STARCH TREATING ASSISTANT.GDOTT Anesthesia Postop Eval I: Fluid Summary Crystalloid volume administer 800 03/18/24 09:08 STARCH TREATING ASSISTANT.GDOTT (ml) Colloids volume administered ( ml) Blood Product volume administered (ml) Total IV fluid infused 800 03/18/24 09:08 STARCH TREATING ASSISTANT.GDOTT Anesthesia Postop Eval I: Summary Notes Anesthesia Complication No 03/18/24 09:08 STARCH TREATING ASSISTANT.GDOTT Anesthesia Complication Comment: Post-operative progress note Anesthesia: Postop Eval II Evaluation Mental status: Awake Pain Level: 0 nausea: No Vomiting: No
[2024-03-18] MEDS: oxyCODONE 5 MG Tablet PO (10:38)
[2024-03-18] MEDS: Acetaminophen 500 MG Tablet 1000 MG PO (11:43)
== END 2024-03-18 13:05 | disposition home or self-care (01) ==
LOC: SDC 05:52 → AC 05:54
PROVIDERS: Anesthesiology; PCP Family Medicine; Referring Provider Surgery; Visit Provider Surgery
PROC: (CPT 47610; principal; 2024-03-18 07:10)
DX: K80.10 Calculus of gallbladder with chronic cholecystitis without obstruction (principal); Z79.899 Other long term (current) drug therapy; R94.8 Abnormal results of function studies of other organs and systems
CPT/HCPCS: 47563; 00790; 74300; 76000; 81025; 88304; 93005; J7120; J2405

== ENCOUNTER 2024-03-22 08:17 | Emergency (ER) | payer OTHER, SELFPAY ==
[2024-03-22 08:17] VITALS: BP 149/75; PULSE 108; RESP 18; TEMP 36.7; O2SAT 100; BMI 34.3
--- NOTE | 2024-03-22 08:32 | CT_ITS ---
EXAM: CT ABDOMEN AND PELVIS WITH INTRAVENOUS CONTRAST CLINICAL INDICATION: Upper abdominal pain S/P lap geni 5 days ago TECHNIQUE: Helically acquired images were obtained of the abdomen and pelvis with intravenous contrast. This CT exam was performed using one or more of the following dose reduction techniques: automated exposure control, adjustment of the mA and/or kV according to patient size, and/or use of iterative reconstruction technique. CONTRAST: IV 100mL [id number] COMPARISON: 06/27/2022 and abdominal ultrasound, 01/30/2024. FINDINGS: LOWER THORAX: No significant abnormality. Lung bases are clear. No cardiomegaly. No significant pericardial effusion. ABDOMEN: LIVER: No significant abnormality. Homogeneous. No focal mass. GALLBLADDER AND BILE DUCTS: Status post cholecystectomy with expected postoperative appearance. No intra- or extrahepatic biliary ductal dilation. PANCREAS: No significant abnormality. No focal cystic or solid mass. SPLEEN: No significant abnormality. Normal size without focal cystic or solid mass. ADRENALS: No significant abnormality. No nodules. KIDNEYS AND URETERS: No significant abnormality. Normal renal size and position. No hydronephrosis. STOMACH AND BOWEL: No significant abnormality. No stomach or bowel distention. No focal inflammatory change. PELVIS: APPENDIX: Elongate enterolith and/or inspissated enteric content within the terminus of an otherwise normal-appearing appendix identified in the right lower quadrant. BLADDER: No significant abnormality. REPRODUCTIVE: Normal as visualized. No mass. ABDOMEN and PELVIS: INTRAPERITONEAL SPACE: No significant abnormality. No ascites or other fluid collection. No free air. BONES/JOINTS: No significant abnormality. No suspicious lytic or blastic abnormality. SOFT TISSUES: Fat-containing periumbilical hernia. VASCULATURE: No significant abnormality. Abdominal aorta is non-dilated. LYMPH NODES: No significant abnormality. No enlarged lymph nodes. CT/Abdomen/Pelvis W IV Cont ONLY IMPRESSION: Status post cholecystectomy with expected postoperative appearance. Electronically Signed: Cristofer Sidhu DO at 9:36 EST ,
--- NOTE | 2024-03-22 08:37 | ED.VIS.GI ---
HPI HPI - GI History of Present Illness Chief Complaint: Abd Pain Informant: patient and other (Surgeon (Dr. Martin)) Narrative Narrative: 35-year-old female postoperative day 4 from lap geni. Patient had a laparoscopic cholecystectomy last week by Dr. Martin. Outpatient workup included gallbladder ultrasound (sludge) as well as a HIDA scan with a 0% ejection fraction. Patient states that the surgery went well. She notes that before surgery she did have a slight cough. After surgery she notes an increased cough with no sputum production no fevers. She states that beginning yesterday she began to experience a significant amount of nausea as well as vomiting. She denies any blood in the stool or the vomit. She notes surgical incisions appear to be doing well. She spoke with her surgeon who was advised to come to emergency. He was noted that the patient has hard to control pain postoperatively. She has a nightly cannabis user but states she has not used any for the past several days. She denies rhinorrhea or significant sore throat. [facility] Medical History Wears glasses Anxiety Marijuana use Heartburn Non-smoker RUQ pain Abnormal biliary HIDA scan Acute sinusitis, unspecified Diarrhea Fatigue Home Medications ?Medication ?Instructions ?Recorded ?Last Taken ?Type escitalopram oxalate 10 mg tablet 15 mg PO DAILY 12/18/23 03/18/24 History ondansetron 4 mg disintegrating 4 mg PO Q8H PRN PRN Nausea #10 tabs 01/23/24 03/17/24 Rx tablet promethazine 25 mg tablet 25 mg PO Q6H PRN PRN Nausea #10 01/26/24 03/17/24 Rx TABLETS omeprazole 20 mg capsule,delayed 20 mg PO DAILY 03/13/24 Unknown History release oxycodone 5 mg capsule 5 mg PO Q6H PRN pain 3 days #7 caps 03/21/24 Unknown Rx albuterol sulfate 90 mcg/actuation 2 puff inhalation Q4H PRN PRN 03/22/24 Unknown Rx aerosol inhaler (Ventolin HFA) Wheezing ##1 amitriptyline 25 mg tablet 25 mg PO QHS 03/22/24 Unknown History ondansetron 4 mg disintegrating 4 mg PO Q6H PRN PRN Nausea #15 tabs 03/22/24 Unknown Rx tablet oxycodone 5 mg tablet PO 03/22/24 Unknown History promethazine 25 mg tablet 25 mg PO Q6H PRN PRN Nausea #10 03/22/24 Unknown Rx TABLETS Allergy/AdvReac Type Severity Reaction Status Date / Time No Known Allergies Allergy Verified 03/22/24 08:17 Family History Aunt Breast cancer Grandmother Breast cancer Diabetes Grandfather Heart disease Mother Hypertension Diabetes Father Hypertension Heart disease Social History adopted: No household members: spouse and children housing: house number of children: 2 current occupational status: employed 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 current occupational exposures/hazards: No pets and animals: Yes pets and animals: cat(s) and dog(s) history of recent travel: No sexually active: Yes Smoking Status: Never smoker alcohol intake: current alcohol intake frequency: holidays/special occasions only Alcohol type: hard liquor substance use type: marijuana well-balanced diet: about half the time caffeine: Yes Type: coffee Number of servings: 2 eating out: rarely or never giancarlo/tenriism: Amish seatbelt use: always do you feel safe at home: Yes 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, [employer] ROS ROS ED Constitutional Constitutional ED: Denies chills, fever(s) or weight loss Eyes Eyes: Denies change in vision or diplopia ENT ENT ED: Denies ear pain, rhinorrhea or sore throat Cardiovascular Cardiovascular: Denies chest pain, orthopnea, palpitations or racing heartbeat Respiratory/Chest Respiratory/Chest: Reports cough; Denies dyspnea or orthopnea Gastrointestinal Gastrointestinal: Reports abdominal pain, diarrhea, nausea and vomiting; Denies constipation Genitourinary Genitourinary ED: Denies dysuria, hematuria or urinary frequency Musculoskeletal Musculoskeletal: Denies arthralgias, back pain or myalgias Integumentary Denies abscess or rash Neurologic Neurologic: Denies headache(s), paresthesias or weakness Psychiatric Psychiatric: Denies anxiety, depression, suicidal ideation or suicidal thoughts Endocrine Endocrinology: Denies polydipsia, polyphagia or polyuria Allergic/Immunologic Allergic/Immunologic ED: Denies mouth swelling, tongue swelling or urticaria EXAM Physical Exam Const Vital Signs: 03/22/24 08:17 03/22/24 08:46 Temperature 98.1 F Temperature Source Oral Pulse Rate 108 H 85 Respiratory Rate 18 16 Respiratory Pattern Normal Blood Pressure 149/75 H Blood Pressure Mean 99 Pulse Ox 100 Oxygen Delivery Method Room Air Positive well nourished and well developed General Appearance ED: well developed and NAD HEENT Reports normocephalic, head/scalp atraumatic and moist mucous membranes Eyes PERRL and EOMs intact bilaterally Neck no lymphadenopathy, supple and no JVD Resp normal respiratory effort and clear to auscultation bilaterally Cardio regular rate, regular rhythm and no murmurs GI GI Narrative: Tenderness to palpation epigastrium right upper quadrant. Surgical incisions clean dry and intact with no evidence of infection. Auscultation: normoactive bowel sounds Palpation: soft and tender; Negative for guarding or rebound tenderness present Back/Spine no CVA tenderness and normal ROM Extremity normal to inspection General Extremety ED: Negative for edema General Extremity: Negative for edema Neuro oriented x3 and CN's II-XII intact bilaterally Sensorium / Orientation: alert Motor Exam: strength 5/5 throughout Psych mental status grossly normal Mood & Affect: Negative for depressed or tearful Skin no rashes or lesions noted and no wounds MDM MDM MDM Narrative Medical decision making narrative: Differential diagnosis includes but not limited to pancreatitis biliary leak liver dysfunction dehydration pneumonia viral syndrome postoperative pain cannabis hyperemesis syndrome My independent interpretation of the chest x-ray is no acute process. White count slightly elevated at 15. Normal liver enzymes and lipase. BMP shows a chloride of 110. test is negative. CT abdomen pelvis with IV contrast was obtained. Normal postoperative changes are noted. Please see radiologist read for details. I spoke with the patient's general surgeon Dr. Martin. Patient will be discharged home. I will write for an albuterol MDI as she did feel less cough and better with the DuoNeb. She is almost out of nausea medication at home. She states it is difficult to say if Phenergan or Zofran works better for her sometimes ones work and sometimes the other 1 does. I believe the patient can be discharged home at this time she is comfortable with follow-up. History & Record Review Discussion w/independent historian: Patient and Significant other Additional record(s) reviewed:: Prior inpatient record, Prior outpatient record, Prior ED visit and Prior labs Lab Data Attestation: I reviewed the patient's lab results. Labs: Laboratory Results - last 24 hr 03/22/24 08:28 WBC 15.6 H RBC 5.00 Hgb 15.2 H Hct 43.8 MCV 87.6 MCH 30.4 MCHC 34.7 RDW Std Deviation 37.3 RDW Coeff of Nish 11.7 Plt Count 359 MPV 9.9 Immature Gran % (Auto) 0.400 Neut % (Auto) 79.5 H Lymph % (Auto) 10.8 L [place] % (Auto) 4.8 Eos % (Auto) 4.0 Baso % (Auto) 0.5 Absolute Neuts (auto) 12.4 H Absolute Lymphs (auto) 1.68 Nucleated RBC % 0 Sodium 141 Potassium 3.5 Chloride 110 H Carbon Dioxide 21.0 Anion Gap 10 BUN 11 Creatinine 0.96 Estim Creat Clear Calc 91.78 Est GFR (MDRD) Af Amer 87 Est GFR (MDRD) Non-Af 72 BUN/Creatinine Ratio 11.5 Glucose 100 Calcium 9.4 Total Bilirubin 0.60 Direct Bilirubin 0.19 AST 17 ALT 41 Alkaline Phosphatase 105 Total Protein 7.9 Albumin 4.1 Globulin 3.8 Lipase 33 Serum , Qual NEGATIVE Radiography Diagnostic Testing: Clinical Impression(s) from Imaging Studies Abdomen/Pelvis CT 03/22/24 08:32 IMPRESSION: Status post cholecystectomy with expected postoperative appearance. Electronically Signed: Cristoferjesu Sidhu DO at 9:36 EST , Chest X-Ray 03/22/24 09:05 IMPRESSION: No radiographic evidence of acute cardiopulmonary disease. Electronically Signed: Cristoferjesu Sidhu DO at 9:37 EST , Management Discussion w/another healthcare provider: Job Coach/Job Developer (Surgery (Dr. Martin)) Discharge Plan Triage Chief Complaint: Abd Pain ED Provider: Painter,Obie Dx/Rx/DC Orders Clinical Impression: Abdominal pain, acute, Nausea and vomiting, Status post cholecystectomy, Viral respiratory illness Instructions: After Gallbladder Surgery, ED URI, Viral, No Abx (Adult) Prescriptions: New promethazine 25 mg tablet 25 mg PO Q6H PRN PRN (Reason: Nausea) Qty: 10 0RF albuterol sulfate [Ventolin HFA] 90 mcg/actuation HFA aerosol inhaler 2 puff inhalation Q4H PRN PRN (Reason: Wheezing) Qty: 1 0RF Rx Instructions: with spacer ondansetron 4 mg tablet,disintegrating 4 mg PO Q6H PRN PRN (Reason: Nausea) Qty: 15 0RF No Action escitalopram oxalate 10 mg tablet 15 mg PO DAILY ondansetron 4 mg tablet,disintegrating 4 mg PO Q8H PRN PRN (Reason: Nausea) Qty: 10 0RF promethazine 25 mg tablet 25 mg PO Q6H PRN PRN (Reason: Nausea) Qty: 10 0RF amitriptyline 25 mg tablet 25 mg PO QHS oxycodone 5 mg tablet PO omeprazole 20 mg capsule,delayed release(DR/EC) 20 mg PO DAILY oxycodone 5 mg capsule 5 mg PO Q6H PRN (Reason: pain) 3 Days Qty: 7 0RF Primary Care Provider: Jerrell Segundo Referrals: Jerrell Segundo MD [Primary Care Provider] - As Needed Jillian Martin MD [Med Staff - Active Staff] - Keep Amberly appointment Print Language: Citizen Of [place] Disposition Disposition: Home, Self Care
[2024-03-22] MEDS: Ondansetron 4 MG/2 ML Vial IV (08:42)
[2024-03-22] MEDS: Morphine 4 MG/ML Syringe IV (08:42)
[2024-03-22 08:46] VITALS: PULSE 85; RESP 16
[2024-03-22] MEDS: Ipratropium/Albuterol Sulfate 3 ML AMPUL.NEB INHALATION (08:46)
[2024-03-22 08:56] LABS: Absolute Lymphocyte Count 1.68 X10^3/uL (0.83-4.51); Absolute Neutrophil Count 12.4 X10^3/uL (2.0-7.7); Basophil# 0.08 X10^3/uL; Basophil% 0.5 % (0-1); Eosinophil# 0.62 X10^3/uL; Hematocrit 43.8 % (37-47); Hemoglobin 15.2 g/dL (12.0-15.0); Lymphocyte # 1.68 X10^3/ul (0.83-4.51); Lymphocyte % 10.8 % (19-41); Mean Corp Hgb Conc 34.7 g/dL (32-36); Mean Corpuscular Hgb 30.4 pg (27.0-32.0); Mean Corpuscular Volume 87.6 fL (81-99); Mean Platelet Vol. 9.9 fl (6.2-12.0); Monocyte# 0.75 X10^3/uL; Monocyte% 4.8 % (0-10); NRBC Flagged by Analyzer 0 % (0-5); Neutrophil # 12.42 X10^3/uL (2.7-7.7); Neutrophil % 79.5 % (47-70); Platelet Count 359 K/mm3 (150-450); RBC Distribution Width CV 11.7 % (11.6-14.6); RBC Distribution Width SD 37.3 fl (35.1-43.9); White Blood Count 15.6 K/mm3 (4.4-11.0)
[2024-03-22 09:04] LABS: Internal QC Validated? YES +Cl - CLEAR BKGD; Pregnancy, Serum, hCG Quali. NEGATIVE Negative
--- NOTE | 2024-03-22 09:05 | RAD_ITS ---
EXAM: XR CHEST, 2 VIEWS CLINICAL INDICATION: cough TECHNIQUE: Frontal and lateral views of the chest. COMPARISON: No relevant prior studies available. FINDINGS: LUNGS AND PLEURAL SPACES: No significant abnormality. No consolidation or edema. No pneumothorax. No effusion. HEART: No significant abnormality. Cardiac silhouette not enlarged. MEDIASTINUM: Central airways and mediastinal contour are unremarkable. BONES/JOINTS: No significant abnormality. No acute fracture. SOFT TISSUES: No significant abnormality. RAD/Chest PA and Lateral IMPRESSION: No radiographic evidence of acute cardiopulmonary disease. Electronically Signed: Cristofer Sidhu DO at 9:37 EST ,
[2024-03-22 09:13] LABS: AST(SGOT) 17 U/L (15-37); Alanine Aminotransfer ALT/SGPT 41 U/L (13-56); Albumin, Serum 4.1 g/dL (3.2-5.0); Alkaline Phosphatase 105 U/L (45-117); Anion Gap 10 (5-15); BUN 11 mg/dL (7-18); BUN/Creat Ratio 11.5 RATIO (10-20); Bilirubin, Direct 0.19 mg/dL (0.00-0.30); Calcium,Total 9.4 mg/dL (8.5-10.1); Chloride 110 mmol/L (98-107); Creatinine, Serum 0.96 mg/dL (0.55-1.02); EST Glomerular Filtration Rate 72 mL/min (>60); Est Glom Filt Rate - Afr Amer 87 mL/min (>60); Estimated Creatinine Clearance 91.78 ml/min; Globulin 3.8 g/dL (2.2-4.2); Glucose 100 mg/dL (74-106); Lipase 33 U/L (13-75); Potassium 3.5 mmol/L (3.5-5.1); Protein, Total 7.9 g/dL (6.4-8.2); Sodium Level 141 mmol/L (136-145)
[2024-03-22 10:31] VITALS: BP 136/61; PULSE 78; RESP 18; O2SAT 98
== END 2024-03-22 10:35 | disposition home or self-care (01) ==
PROVIDERS: Emergency Provider Emergency Medicine; PCP Family Medicine; Visit Provider Emergency Medicine
DX: R10.9 Unspecified abdominal pain (principal); R11.2 Nausea with vomiting, unspecified; B34.9 Viral infection, unspecified; Z90.49 Acquired absence of other specified parts of digestive tract; J98.8 Other specified respiratory disorders
CPT/HCPCS: 71046; 74177; 80048; 80076; 83690; 84703; 85025; 94640; 96374; 96375; 99283; Q9967; A4216; J2405

== ENCOUNTER 2024-11-06 11:08 | Emergency (ER) | payer OTHER, SELFPAY ==
[2024-11-06 11:09] VITALS: BP 126/90; PULSE 71; RESP 18; TEMP 36.1; O2SAT 95; BMI 35.2
[2024-11-06 11:51] LABS: Absolute Lymphocyte Count 2.19 X10^3/uL (0.83-4.51); Absolute Neutrophil Count 10.4 X10^3/uL (2.0-7.7); Basophil# 0.04 X10^3/uL; Basophil% 0.3 % (0-1); Eosinophil# 0.19 X10^3/uL; Eosinophils% 1.4 % (0-5); Hematocrit 41.6 % (37-47); Lymphocyte # 2.19 X10^3/ul (0.83-4.51); Lymphocyte % 16.1 % (19-41); Mean Corp Hgb Conc 33.7 g/dL (32-36); Mean Corpuscular Hgb 29.9 pg (27.0-32.0); Mean Corpuscular Volume 88.9 fL (81-99); Mean Platelet Vol. 9.7 fl (6.2-12.0); Monocyte# 0.76 X10^3/uL; Monocyte% 5.6 % (0-10); NRBC Flagged by Analyzer 0 % (0-5); Neutrophil # 10.37 X10^3/uL (2.7-7.7); Neutrophil % 76.1 % (47-70); Platelet Count 302 K/mm3 (150-450); RBC Distribution Width CV 11.8 % (11.6-14.6); RBC Distribution Width SD 37.5 fl (35.1-43.9); Red Blood Count 4.68 M/mm3 (4.2-5.4); White Blood Count 13.6 K/mm3 (4.4-11.0)
--- NOTE | 2024-11-06 11:56 | EDS_ITS ---
HPI <SALIMA Jung - Last Filed: 11/06/24 14:35> History of Present Illness Chief Complaint: Suicidal Narrative Narrative: 34-year-old male with past medical history of depression presents with increasing depression and suicidal ideation over the last few weeks. She has been taking escitalopram from her primary care for about a year. She lives at home with her and 5 and 6-year-old daughters. She states this morning she was arguing with her 6-year-old daughter and became very emotional and angry. Her mom was over and advised she come to the hospital. Patient states she has suicidal thoughts but no specific plan. Denies history of suicide attempts. She does not see a counselor or psychiatrist and has never been hospitalized for mental health. She states sometimes she thinks about hitting her daughter but is not homicidal. She denies hallucinations. She smokes THC, denies alcohol or other drug use. [facility] <SALIMA Jung - Last Filed: 11/06/24 14:35> [facility] Medical History (Updated 11/06/24 @ 14:29 by SALIMA Jung) Wears glasses Anxiety Marijuana use Heartburn Non-smoker RUQ pain Abnormal biliary HIDA scan Acute sinusitis, unspecified Diarrhea Fatigue Home Medications ?Medication ?Instructions ?Recorded ?Last Taken ?Type escitalopram oxalate 10 mg tablet 15 mg PO DAILY 12/1703/18/24 History Allergy/AdvReac Type Severity Reaction Status Date / Time No Known Allergies Allergy Verified 11/06/24 11:11 Family History Aunt Breast cancer Grandmother Breast cancer Diabetes Grandfather Heart disease Mother Hypertension Diabetes Father Hypertension Heart disease Surgical History Status post cholecystectomy Social History adopted: No household members: spouse and children housing: house number of children: 2 current occupational status: employed 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 current occupational exposures/hazards: No pets and animals: Yes pets and animals: cat(s) and dog(s) history of recent travel: No sexually active: Yes Smoking Status: Never smoker alcohol intake: current alcohol intake frequency: holidays/special occasions only Alcohol type: hard liquor substance use type: marijuana well-balanced diet: about half the time caffeine: Yes Type: coffee Number of servings: 2 eating out: rarely or never giancarlo/faith: Pentecostalism seatbelt use: always do you feel safe at home: Yes 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, Hand [employer] ROS <SALIMA Jung - Last Filed: 11/06/24 14:35> ROS ED ROS Narrative Constitutional: Negative for fever, chills, malaise. CVS: Negative for chest pain Respiratory: Negative for shortness of breath. GI: Negative for abdominal pain, nausea, vomiting. EXAM <SALIMA Jung - Last Filed: 11/06/24 14:35> Physical Exam Narrative Exam Narrative: CONST: Patient sitting in bed crying. EYES: Normal inspection. NECK: Normal inspection. RESP: No respiratory distress, CTAB. CVS: Regular rate and rhythm, no murmur, no gallop. SKIN: Color normal, no rash, warm, dry, intact. EXTREMITIES: Normal appearance, no pedal edema. NEURO: Alert and answering questions appropriately. PSYCH: Tearful, normal affect. Const Vital Signs: 11/06/24 11:09 11/06/24 12:11 Temperature 97 F L Temperature Source Temporal Pulse Rate 71 78 Respiratory Rate 18 16 Blood Pressure 126/90 H 130/74 H Blood Pressure Mean 102 92 Pulse Ox 95 98 Oxygen Delivery Method Room Air <Viraj Knox MD - Last Filed: 11/06/24 14:47> Physical Exam Const Vital Signs: 11/06/24 11:09 11/06/24 12:11 Temperature 97 F L Temperature Source Temporal Pulse Rate 71 78 Respiratory Rate 18 16 Blood Pressure 126/90 H 130/74 H Blood Pressure Mean 102 92 Pulse Ox 95 98 Oxygen Delivery Method Room Air MDM <SALIMA Jung - Last Filed: 11/06/24 14:35> MDM MDM Narrative Medical decision making narrative: History gathered from: Patient and spouse Consults: Crisis Differential includes but not limited to depression, anxiety, suicidal ideation 34-year-old female presents with worsening depression and suicidal ideation and angry thoughts and outbursts at her daughter. She appears well nontoxic. Vital stable. She is tearful but calm and insightful during the exam. Labs show nonspecific leukocytosis of 13.6, otherwise normal. test negative. Drug screen positive for THC, alcohol negative. Patient is medically cleared and will be evaluated by crisis. The crisis counselor had an extensive discussion with the patient and her and thinks she can be safety planned at home. She has a good support system and her is comfortable with this. Her children will stay with their grandma until her scheduled November 16 intake appointment with the counseling center. states she does not have access to weapons and he is comfortable monitoring her. Return precautions discussed. She was discharged in stable condition. Lab Data Attestation: I reviewed the patient's lab results. Labs: Laboratory Results - last 24 hr 11/06/24 11/06/24 11:36 11:45 WBC 13.6 H RBC 4.68 Hgb 14.0 Hct 41.6 MCV 88.9 MCH 29.9 MCHC 33.7 RDW Std Deviation 37.5 RDW Coeff of Nish 11.8 Plt Count 302 MPV 9.7 Immature Gran % (Auto) 0.500 Neut % (Auto) 76.1 H Lymph % (Auto) 16.1 L [place] % (Auto) 5.6 Eos % (Auto) 1.4 Baso % (Auto) 0.3 Absolute Neuts (auto) 10.4 H Absolute Lymphs (auto) 2.19 Nucleated RBC % 0 Sodium 141 Potassium 3.7 Chloride 107 Carbon Dioxide 22.9 Anion Gap 11 BUN 11 Creatinine 0.68 L Estim Creat Clear Calc 131.21 Est GFR (MDRD) Non-Af 119 BUN/Creatinine Ratio 15.5 Glucose 98 Calcium 9.2 Total Bilirubin 0.47 AST 18 ALT 21 Alkaline Phosphatase 94 Total Protein 7.5 Albumin 4.3 Globulin 3.3 Albumin/Globulin Ratio 1.3 Serum , Qual NEGATIVE Urine Opiates Screen NEGATIVE U Buprenorphine Qual NEGATIVE Ur Oxycodone Screen NEGATIVE Urine Methadone Screen NEGATIVE Urine Fentanyl Screen NEGATIVE Ur Barbiturates Screen NEGATIVE Ur Phencyclidine Scrn NEGATIVE Ur Amphetamines Screen NEGATIVE U Benzodiazepines Scrn NEGATIVE Urine Cocaine Screen NEGATIVE U Cannabinoids Screen PRESUMPTIVE POSITIVE Ethyl Alcohol < 10.1 <Viraj Knox MD - Last Filed: 11/06/24 14:47> MDM Lab Data Labs: Laboratory Results - last 24 hr 11/06/24 11/06/24 11:36 11:45 WBC 13.6 H RBC 4.68 Hgb 14.0 Hct 41.6 MCV 88.9 MCH 29.9 MCHC 33.7 RDW Std Deviation 37.5 RDW Coeff of Nish 11.8 Plt Count 302 MPV 9.7 Immature Gran % (Auto) 0.500 Neut % (Auto) 76.1 H Lymph % (Auto) 16.1 L [place] % (Auto) 5.6 Eos % (Auto) 1.4 Baso % (Auto) 0.3 Absolute Neuts (auto) 10.4 H Absolute Lymphs (auto) 2.19 Nucleated RBC % 0 Sodium 141 Potassium 3.7 Chloride 107 Carbon Dioxide 22.9 Anion Gap 11 BUN 11 Creatinine 0.68 L Estim Creat Clear Calc 131.21 Est GFR (MDRD) Non-Af 119 BUN/Creatinine Ratio 15.5 Glucose 98 Calcium 9.2 Total Bilirubin 0.47 AST 18 ALT 21 Alkaline Phosphatase 94 Total Protein 7.5 Albumin 4.3 Globulin 3.3 Albumin/Globulin Ratio 1.3 Serum , Qual NEGATIVE Urine Opiates Screen NEGATIVE U Buprenorphine Qual NEGATIVE Ur Oxycodone Screen NEGATIVE Urine Methadone Screen NEGATIVE Urine Fentanyl Screen NEGATIVE Ur Barbiturates Screen NEGATIVE Ur Phencyclidine Scrn NEGATIVE Ur Amphetamines Screen NEGATIVE U Benzodiazepines Scrn NEGATIVE Urine Cocaine Screen NEGATIVE U Cannabinoids Screen PRESUMPTIVE POSITIVE Ethyl Alcohol < 10.1 Management Discussion w/another healthcare provider: Behavioral health Treatment and Re-Evaluation :: Dr. Knox: I have personally performed a face to face assessment of the patient and have reviewed the DELIA Note. I performed a substantive portion of the visit including all aspects of the following. My parmar findings include: History is anger issues, angry with 6-year-old, increased depressive symptoms. Family reached out to crisis already. Exam is afebrile. Vital signs noted, nontoxic-appearing. Cardiovascular examination regular rate and rhythm, lungs clear to auscultation bilaterally. Abdomen soft, nontender, without guarding or rebound, positive bowel sounds. Neurological examination nonfocal and nonlateralizing. Psychiatric examination shows depressed affect. No suicidal ideation with plan. No true homicidal ideation. 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 Medical Decision Making: Medical screening labs. Evaluation by crisis. It was thought that patient could be safety planned and has close follow-up for diagnostic assessment with the counseling center. Patient already on Lexapro. Reportedly has been agreeable to plan. Discharge. Other additions or changes: [None] Discharge Plan Triage Chief Complaint: Suicidal ED Midlevel Provider: Zenaida Jaeger ED Provider: Viraj Knox Dx/Rx/DC Orders Clinical Impression: Depression, Anger reaction Instructions: Depression: Tips to Help Yourself, CONTRACT, No Harm Prescriptions: No Action escitalopram oxalate 10 mg tablet 15 mg PO DAILY Primary Care Provider: Jerrell Segundo Referrals: Jerrell Segundo MD [Primary Care Provider] - Activity Restrictions/Additional Instructions: The crisis counselor feels you can be safety plan to go home. This includes an agreement to continue her medication and follow-up on November 16 for your diagnostic assessment at the counseling center. If it anytime you feel symptoms are worsening or you feel you or your family are not safe you should come back to the ER. Print Language: Bhutanese Disposition Disposition: Home, Self Care
[2024-11-06 12:07] LABS: Internal QC Validated? YES +Cl - CLEAR BKGD; Pregnancy, Serum, hCG Quali. NEGATIVE Negative
[2024-11-06 12:11] VITALS: BP 130/74; PULSE 78; RESP 16; O2SAT 98
[2024-11-06 12:16] LABS: ALB/GLOB Ratio 1.3 RATIO (0.9-2.4); AST(SGOT) 18 U/L (<=31); Alanine Aminotransfer ALT/SGPT 21 U/L (<=34); Albumin, Serum 4.3 g/dL (3.5-5.0); Alkaline Phosphatase 94 U/L (35-104); Anion Gap 11 (5-15); BUN 11 mg/dL (4-19); BUN/Creat Ratio 15.5 RATIO (10-20); Calcium,Total 9.2 mg/dL (7.6-11.0); Carbon Dioxide 22.9 mmol/L (21.0-32.0); Chloride 107 mmol/L (98-108); Creatinine, Serum 0.68 mg/dL (0.70-1.20); EST Glomerular Filtration Rate 119 (>60); Estimated Creatinine Clearance 131.21 ml/min (50-250); Globulin 3.3 g/dL (2.2-4.2); Glucose 98 mg/dL (70-99); Potassium 3.7 mmol/L (3.3-5.1); Protein, Total 7.5 g/dL (5.9-8.4); Sodium Level 141 mmol/L (133-145); Total Bilirubin 0.47 mg/dL (0.00-1.30)
[2024-11-06 12:22] LABS: Amphetamine Urine NEGATIVE (<1000 ng/mL); Barbiturate Urine NEGATIVE (< 200 ng/mL); Benzodiazepine Urine NEGATIVE (< 200 ng/mL); Buprenorphine Urine NEGATIVE (< 200 ng/mL); Cocaine Urine NEGATIVE (< 300 ng/mL); Fentanyl, Urine NEGATIVE; Methadone Urine NEGATIVE (< 300 ng/mL); Opiates Urine NEGATIVE (< 300 ng/mL); Oxycodone, Urine NEGATIVE (< 100 ng/mL); PCP Urine NEGATIVE (< 25 ng/mL); THC Urine PRESUMPTIVE POSITIVE (< 50 ng/mL)
[2024-11-06 12:32] LABS: Alcohol, Blood (Medical)-Serum < 10.1 mg/dL (<=10.0)
[2024-11-06 14:58] VITALS: BP 125/65; PULSE 78; RESP 18; TEMP 36.6; O2SAT 99
--- OUTSIDE RECORDS SUMMARY | 2024-11-06 18:26 | XMS RPT_ITS | CCD ---
Author Organization [facility] Care Team Providers Care Lab Head Name Role Phone Unavailable Primary Care Provider Unavailabl e MARIANA HEARD Referring Unavailable FÉLIX, MARIANA Referring Unavailable Féilx, Mariana Referring Unavailable Mariana Heard Attending Unavailable Segundo, Jerrell Primary Care Unavailable Robotham, Jillian Referring Unavailable Robotham, Jillian Attending Unavailable Segundo, Jerrell Primary Care Unavailable Robotham, Jillian Referring Unavailable Papo Yip Attending Unavailable Segundo, Jerrell Primary Care Unavailable Robotham, Jillian Attending Unavailable Robotham, Jillian Consulting Unavailable Robotham, Jillian Referring Unavailable Segundo, Jerrell Primary Care Unavailable Segundo, Jerrell Referring Unavailable Myah Osullivan Attending Unavailable Segundo, Jerrell Primary Care Unavailable Segundo, Jerrell Referring Unavailable Mariana Heard Attending Unavailable Segundo, Jerrell Primary Care Unavailable Segundo, Jerrell Referring Unavailable Segundo, Jerrell Attending Unavailable Segundo, Jerrell Primary Care Unavailable Segundo, Jerrell Referring Unavailable Segundo, Jerrell Attending Unavailable Segundo, Jerrell Primary Care Unavailable Segundo, Jerrell Referring Unavailable Segundo, Jerrell Attending Unavailable Segundo, Jerrell Primary Care Unavailable Segundo, Jerrell Referring Unavailable Segundo, Jerrell Attending Unavailable Segundo, Jerrell Primary Care Unavailable Segundo, Jerrell Attending Unavailable Segundo, Jerrell Primary Care Unavailable Obie Meneses Attending Unavailable Segundo, Jerrell Primary Care Unavailable Segundo, Jerrell Primary Care Unavailable Garcia Jerrell Attending Unavailable Segundo, Jerrell Referring Unavailable Robotham, Jillian Attending Unavailable Segundo, Jerrell Primary Care Unavailable Robotham, Jillian Referring Unavailable Robotham, Jillian Attending Unavailable Segundo, Jerrell Primary Care Unavailable Obie Meneses Attending Unavailable Segundo, Jerrell Primary Care Unavailable Medications Current Medications Medication Drug Class(es) Dates Sig (Normalized) Sig (Original) cholecalciferol 0.05 mg oral capsule (2 sources) Vitamin D Start: 03-03-2019 take 2000 [IU] by mouth once daily Cholecalciferol (Vitamin D3) Active 2000 UNIT PO DAILY March 02, 2019 11:00pm FLUoxetine 20 mg oral capsule (2 sources) Serotonin Reuptake Inhibitor Start: 08-10-2021 Fluoxetine Active CAP PO August 09, 2021 11:00pm Completed/Discontinued Medications Medication Drug Class(es) Dates Sig (Normalized) Sig (Original) amoxicillin 500 mg oral capsule (2 sources) Penicillin-class Antibacterial Start: 08-10-2021 End: 08-20-2021 take 1000 mg by mouth twice daily Amoxicillin Discontinued 1000 MG PO TWICE A DAY 40 August 09, 2021 11:00pm August 19, 2021 11:03pm Problems Active Problems Problem Classification Problem Date Documented Date Episodic/Chronic Abdominal pain (2 sources) Unspecified abdominal pain; Translations: [Right upper quadrant pain] Onset: 04-08-2024 Episodic Biliary tract disease (3 sources) Chronic cholecystitis; Translations: [Other specified diseases of gallbladder] Onset: 02-05-2024 Episodic Hypertension complicating ; childbirth and the puerperium (2 sources) -induced hypertension; Translations: [Gestational [-induced] hypertension without significant proteinuria, unspecified trimester] 03-04-2019 Episodic Nausea and vomiting (3 sources) Nausea and vomiting; Translations: [Nausea with vomiting, unspecified] Onset: 02-14-2024 06-27-2022 Episodic Noninfectious gastroenteritis (1 source) Noninfective gastroenteritis and colitis, unspecified; Translations: [Noninfective gastroenteritis and colitis, unspecified] Onset: 02-20-2024 Episodic Other complications of ; puerperium affecting management of mother (2 sources) Vacuum extractor delivery - delivered; Translations: [Complication of labor and delivery, unspecified] 03-04-2019 Episodic Other nutritional; endocrine; and metabolic disorders (2 sources) Obese class I; Translations: [Obesity, unspecified] 06-27-2022 Chronic Other screening for suspected conditions (not mental disorders or infectious disease) (1 source) Abnormal results of function studies of other organs and systems; Translations: [Abnormal results of function studies of other organs and systems] Onset: 04-03-2024 Episodic Other upper respiratory infections (2 sources) Acute sinusitis; Translations: [Acute sinusitis, unspecified] 08-10-2021 Episodic Spontaneous (2 sources) Miscarriage; Translations: [Complete or unspecified spontaneous without complication] 03-03-2019 Episodic Past or Other Problems Problem Classification Problem Date Documented Da te Episodic/Chronic Nonmalignant breast conditions (7 sources) Breast lump; Translations: [Unspecified lump in unspecified breast] Onset: 12-18-2023 12-24-2023 Episodic Results Test Name Value Interpretation Reference Range Facility Surgery Visit Reporton 04-01 Surgery Visit Report [facility] [address] [place] [address] OFFICE VISIT Date of Service: 04/01/24 MR#: [id number] Acct: [id number] Name: MOSHE SEVERINO Rep #: [id number] : 1990 Provider: QAMAR rodrigez Age/Sex: 34/F Location: [facility] Status: Signed Intake Vital Signs 03/22/24 08:17 Height 5 ft 4 in Intake Visit Reasons: LAP GUILHERME DOS 03/18 Chief Complaint: lap guilherme 03/18 Allergies No Known Allergies Allergy (Verified 04/01/24 13:04) Medications ???Medication ???Instructions ???Recorded ???Confirmed ???Type escitalopram oxalate 10 mg tablet 15 mg PO DAILY 12/18/23 04/01/24 History ondansetron 4 mg disintegrating 4 mg PO Q8H PRN PRN Nausea #10 tabs 01/23/24 04/01/24 Rx tablet promethazine 25 mg tablet 25 mg PO Q6H PRN PRN Nausea #10 01/26/24 04/01/24 Rx TABLETS omeprazole 20 mg capsule,delayed 20 mg PO DAILY 03/13/24 04/01/24 History release oxycodone 5 mg capsule 5 mg PO Q6H PRN pain 3 days #7 caps 03/21/24 04/01/24 Rx albuterol sulfate 90 mcg/actuation 2 puff inhalation Q4H PRN PRN 03/22/24 04/01/24 Rx aerosol inhaler (Ventolin HFA) Wheezing ##1 amitriptyline 25 mg tablet 25 mg PO QHS 03/22/24 04/01/24 History ondansetron 4 mg disintegrating 4 mg PO Q6H PRN PRN Nausea #15 tabs 03/22/24 04/01/24 Rx tablet oxycodone 5 mg tablet PO 03/22/24 04/01/24 History promethazine 25 mg tablet 25 mg PO Q6H PRN PRN Nausea #10 03/22/24 04/01/24 Rx TABLETS Subjective Details: Patient is a 34 y/o F I am following s/p laparoscopic cholecystectomy with intraoperative cholangiogram by Dr. Martin. Patient tolerated the procedure well. Patient was noted to return to the ED with post-operative pain secondary to coughing. Patient notes she coughed so much she became nauseated and vomited. CT scan of the ab/pel was obtained demonstrating post-operative changes, no acute findings. Patient notes she continues to be nauseated. She states she is returning to her family physician to see what the next steps are. Patient notes very minimal tenderness at the incision sites. She denies any fever. Pathology demonstrated chronic cholecystitis and cholesterolosis. Objective Details: Abdomen- soft, non-tender. Incisions c/d/i. No erythema or infection noted. Coding Level of Care Code Global Post Op Diagnoses Chronic cholecystitis K81.1 [facility] Medical History (Updated 04/01/24 @ 13:17 by Myah BORREGO, PA-C) Wears glasses Anxiety Marijuana use Heartburn Non-smoker RUQ pain Abnormal biliary HIDA scan Acute sinusitis, unspecified Diarrhea Fatigue Surgical History (Updated 04/01/24 @ 13:06 by Darby Villafana) Status post cholecystectomy Family History Aunt Breast cancer Grandmother Breast cancer Diabetes Grandfather Heart disease Mother Hypertension Diabetes Father Hypertension Heart disease Social History adopted: No household members: spouse and children housing: house number of children: 2 current occupational status: employed 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[employer] current occupational exposures/hazards: No pets and animals: Yes pets and animals: cat(s) and dog(s) history of recent travel: No sexually active: Yes Smoking Status: Never smoker alcohol intake: current alcohol intake frequency: holidays/special occasions only Alcohol type: hard liquor substance use type: marijuana well-balanced diet: about half the time caffeine: Yes Type: coffee Number of servings: 2 eating out: rarely or never giancarlo/jainism: Sikh seatbelt use: always do you feel safe at home: Yes 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, [employer] Female Reproductive History Menstrual Ab spontaneous: 1 Assessment and Plan (No Qualifiers) Assessment and Plan (1) Chronic cholecystitis: Status: Chronic Plan: Recommend no strenuous activity for 2 additional weeks Discussed trying over the counter Pepcid or Omeprazole to see if this may help with the nausea, possible coming from some gastritis. Continue to follow-up with your PCP Follow-up as needed 04/01/24 1319 Date Myah Pete Signature: Date (if applicable) CC: Dr. Jerrell Segundo MD [facility] Abdomen/Pelvis W IV Cont ONL Yon 03-22-2024 Abdomen/Pelvis W IV Cont ONLY [facility] Imaging Services [address] [place] [id number] Abdomen/Pelvis W IV Cont ONLY MR#: [id number] Acct: [id number] Name: MOSHE SEVERINO Rep #: [id number] : 1990 F 34 From: Cristofer kidd DO PCP: Dr. Jerrell Segundo MD Status: [facility] ER Study: Abdomen/Pelvis W IV Cont ONLY Date of Exam: Exam# [id number] Ordering Dr: Obie Meneses DO [id number] EXAM: CT ABDOMEN AND PELVIS WITH INTRAVENOUS CONTRAST CLINICAL INDICATION: Upper abdominal pain S/P lap guilherme 5 days ago TECHNIQUE: Helically acquired images were obtained of the abdomen and pelvis with intravenous contrast. This CT exam was performed using one or more of the following dose reduction techniques: automated exposure control, adjustment of the mA and/or kV according to patient size, and/or use of iterative reconstruction technique. CONTRAST: IV 100mL Isovue-370 COMPARISON: 06/27/2022 and abdominal ultrasound, 01/30/2024. FINDINGS: LOWER THORAX: No significant abnormality. Lung bases are clear. No cardiomegaly. No significant pericardial effusion. ABDOMEN: LIVER: No significant abnormality. Homogeneous. No focal mass. GALLBLADDER AND BILE DUCTS: Status post cholecystectomy with expected postoperative appearance. No intra- or extrahepatic biliary ductal dilation. PANCREAS: No significant abnormality. No focal cystic or solid mass. SPLEEN: No significant abnormality. Normal size without focal cystic or solid mass. ADRENALS: No significant abnormality. No nodules. KIDNEYS AND URETERS: No significant abnormality. Normal renal size and position. No hydronephrosis. STOMACH AND BOWEL: No significant abnormality. No stomach or bowel distention. No focal inflammatory change. PELVIS: APPENDIX: Elongate enterolith and/or inspissated enteric content within the terminus of an otherwise normal-appearing appendix identified in the right lower quadrant. BLADDER: No significant abnormality. REPRODUCTIVE: Normal as visualized. No mass. ABDOMEN and PELVIS: INTRAPERITONEAL SPACE: No significant abnormality. No ascites or other fluid collection. No free air. BONES/JOINTS: No significant abnormality. No suspicious lytic or blastic abnormality. SOFT TISSUES: Fat-containing periumbilical hernia. VASCULATURE: No significant abnormality. Abdominal aorta is non-dilated. LYMPH NODES: No significant abnormality. No enlarged lymph nodes. CT/Abdomen/Pelvis W IV Cont ONLY IMPRESSION: Status post cholecystectomy with expected postoperative appearance. Electronically Signed: Cristofer Sidhu DO at 9:36 EST , CC: Dr. Oibe Meneses DO; Dr. Jerrell Segundo MD Business Services Sales Agent: Signed Normal [facility] Basic Metabolic Profile (BMP )on 03-22-2024 BUN/CRE 11.5 RATIO Normal 10-20 [facility] Comment on above: Performed By: #### L 700.6800, L501.2450, L100.0100, L500.3400, L500.2500 #### [facility] [address] [place], [address] CA,Total 9.4 mg/dL Normal 8.5-10.1 [facility] Comment on above: Performed By: #### L 700.6800, L501.2450, L100.0100, L500.3400, L500.2500 #### [facility] [address] [place], [address] Chloride [Moles/Vol] 110 mmol/L High 98-107 [facility] Comment on above: Performed By: #### L 700.6800, L501.2450, L100.0100, L500.3400, L500.2500 #### [facility] [address] [place], [address] CO2 [Moles/Vol] 21.0 mmol/L Normal 21.0-32.0 [facility] Comment on above: Performed By: #### L 700.6800, L501.2450, L100.0100, L500.3400, L500.2500 #### [facility] [address] [place], [address] Creatinine [Mass/Vol] 0.96 mg/dL Normal 0.55-1.02 [facility] Comment on above: Result Comment: The validity of the calculated GFR GFRAA in patients over 70 years has not been determined. Clinical correlation is essential. Performed By: #### L 700.6800, L501.2450, L100.0100, L500.3400, L500.2500 #### [facility] [address] [place], [address] ECRCL 91.78 ml/min Normal [facility] Comment on above: Performed By: #### L 700.6800, L501.2450, L100.0100, L500.3400, L500.2500 #### [facility] [address] [place], [address] EST GFR - AA 87 mL/min Normal >60 [facility] Comment on above: Result Comment: Afri can [place] GFR Calc Performed By: #### L 700.6800, L501.2450, L100.0100, L500.3400, L500.2500 #### [facility] [address] [place], [address] GAP 10 Normal 5-15 [facility] Comment on above: Performed By: #### L 700.6800, L501.2450, L100.0100, L500.3400, L500.2500 #### [facility] [address] [place], [address] GFR/1.73 sq M.predicted among non-blacks MDRD (S/P/Bld) [Vol rate/Area] 72 mL/min/{1.73_m2} Normal >60 [facility] Comment on above: Result Comment: Non- GFR Calc Performed By: #### L 700.6800, L501.2450, L100.0100, L500.3400, L500.2500 #### [facility] [address] [place], [address] Glucose [Mass/Vol] 100 mg/dL Normal 74-106 [facility] Comment on above: Result Comment: Fast ing Glucose result from 100 to 125 mg/dL suggests IMPAIRED HOMEOSTASIS per A.D.A. criteria. Performed By: #### L 700.6800, L501.2450, L100.0100, L500.3400, L500.2500 #### [facility] [address] [place], [address] Potassium [Moles/Vol] 3.5 mmol/L Normal 3.5-5.1 [facility] Comment on above: Performed By: #### L 700.6800, L501.2450, L100.0100, L500.3400, L500.2500 #### [facility] [address] [place], [address] Sodium [Moles/Vol] 141 mmol/L Normal 136-145 [facility] Comment on above: Performed By: #### L 700.6800, L501.2450, L100.0100, L500.3400, L500.2500 #### [facility] [address] [place], [address] Urea nitrogen [Mass/Vol] 11 mg/dL Normal 7-18 [facility] Comment on above: Performed By: #### L 700.6800, L501.2450, L100.0100, L500.3400, L500.2500 #### [facility] [address] [place], [address] CBC W/Diff, Automatedon 11-0 3-2023 Absolute Lymph 1.68 X10 3/uL Normal 0.83-4.51 [facility] Comment on above: Performed By: #### L 700.6800, L501.2450, L100.0100, L500.3400, L500.2500 #### [facility] [address] [place], [address] Absolute Neut 12.4 X10 3/uL High 2.0-7.7 [facility] Comment on above: Performed By: #### L 700.6800, L501.2450, L100.0100, L500.3400, L500.2500 #### [facility] [address] [place], [address] Basophils/100 WBC (Bld) 0.5 % Normal 0-1 [facility] Comment on above: Performed By: #### L 700.6800, L501.2450, L100.0100, L500.3400, L500.2500 #### [facility] [address] [place], [address] Eosinophils/100 WBC (Bld) 4.0 % Normal 0-5 [facility] Comment on above: Performed By: #### L 700.6800, L501.2450, L100.0100, L500.3400, L500.2500 #### [facility] [address] [place], [address] Erythrocyte distribution width (RBC) [Ratio] 11.7 % Normal 11.6-14.6 [facility] Comment on above: Performed By: #### L 700.6800, L501.2450, L100.0100, L500.3400, L500.2500 #### [facility] [address] [place], [address] Hematocrit (Bld) [Volume fraction] 43.8 % Normal 37-47 [facility] Comment on above: Performed By: #### L 700.6800, L501.2450, L100.0100, L500.3400, L500.2500 #### [facility] [address] [place], [address] Hemoglobin (Bld) [Mass/Vol] 15.2 g/dL High 12.0-15.0 [facility] Comment on above: Performed By: #### L 700.6800, L501.2450, L100.0100, L500.3400, L500.2500 #### [facility] [address] [place], [address] IG% 0.400 Normal 0.0-0.9 [facility] Comment on above: Result Comment: IG% - Immature Granulocytes (promyelocytes, myelocytes and metamyelocytes) > 1% indicates that a LEFT SHIFT is Present. Performed By: #### L 700.6800, L501.2450, L100.0100, L500.3400, L500.2500 #### [facility] [address] [place], [address] Lymphocytes/100 WBC (Bld) 10.8 % Low 19-41 [facility] Comment on above: Performed By: #### L 700.6800, L501.2450, L100.0100, L500.3400, L500.2500 #### [facility] [address] [place], [address] MCH (RBC) [Entitic mass] 30.4 pg Normal 27.0-32.0 [facility] Comment on above: Performed By: #### L 700.6800, L501.2450, L100.0100, L500.3400, L500.2500 #### [facility] [address] [place], [address] MCHC (RBC) [Mass/Vol] 34.7 g/dL Normal 32-36 [facility] Comment on above: Performed By: #### L 700.6800, L501.2450, L100.0100, L500.3400, L500.2500 #### [facility] [address] [place], [address] MCV (RBC) [Entitic vol] 87.6 fL Normal 81-99 [facility] Comment on above: Performed By: #### L 700.6800, L501.2450, L100.0100, L500.3400, L500.2500 #### [facility] [address] [place], [address] Monocytes/100 WBC (Bld) 4.8 % Normal 0-10 [facility] Comment on above: Performed By: #### L 700.6800, L501.2450, L100.0100, L500.3400, L500.2500 #### [facility] [address] [place], [address] Neutrophils/100 WBC (Bld) 79.5 % High 47-70 [facility] Comment on above: Performed By: #### L 700.6800, L501.2450, L100.0100, L500.3400, L500.2500 #### [facility] [address] [place], [address] Nucleated RBC (Bld) [#/Vol] 0 10*3/uL Normal 0-5 [facility] Comment on above: Performed By: #### L 700.6800, L501.2450, L100.0100, L500.3400, L500.2500 #### [facility] [address] [place], [address] Platelet mean volume (Bld) [Entitic vol] 9.9 fL Normal 6.2-12.0 [facility] Comment on above: Performed By: #### L 700.6800, L501.2450, L100.0100, L500.3400, L500.2500 #### [facility] [address] [place], [address] Platelets (Bld) [#/Vol] 359 10*3/uL Normal 150-450 [facility] Comment on above: Performed By: #### L 700.6800, L501.2450, L100.0100, L500.3400, L500.2500 #### [facility] [address] [place], [address] RBC (Bld) [#/Vol] 5.00 10*6/uL Normal 4.2-5.4 [facility] Comment on above: Performed By: #### L 700.6800, L501.2450, L100.0100, L500.3400, L500.2500 #### [facility] [address] [place], [address] RDW SD 37.3 fl Normal 35.1-43.9 [facility] Comment on above: Performed By: #### L 700.6800, L501.2450, L100.0100, L500.3400, L500.2500 #### [facility] [address] [place], [address] WBC (Bld) [#/Vol] 15.6 10*3/uL High 4.4-11.0 [facility] Comment on above: Performed By: #### L 700.6800, L501.2450, L100.0100, L500.3400, L500.2500 #### [facility] [address] [place], [address] Chest PA and Lateralon 03-22 Chest PA and Lateral [facility] Services [address] [place] [address] Chest PA and Lateral MR#: [id number] Acct: [id number] Name: MOSHE SEVERINO Rep #: [id number] : 1990 F 34 From: Cristofer kidd DO PCP: Dr. Jerrell Segundo MD Status: [facility] ER Study: Chest PA and Lateral Date of Exam: 03/22/24 Exam# [id number] Ordering Dr: Obie Meneses DO [id number] EXAM: XR CHEST, 2 VIEWS CLINICAL INDICATION: cough TECHNIQUE: Frontal and lateral views of the chest. COMPARISON: No relevant prior studies available. FINDINGS: LUNGS AND PLEURAL SPACES: No significant abnormality. No consolidation or edema. No pneumothorax. No effusion. HEART: No significant abnormality. Cardiac silhouette not enlarged. MEDIASTINUM: Central airways and mediastinal contour are unremarkable. BONES/JOINTS: No significant abnormality. No acute fracture. SOFT TISSUES: No significant abnormality. RAD/Chest PA and Lateral IMPRESSION: No radiographic evidence of acute cardiopulmonary disease. Electronically Signed: Cristofer Sidhu DO at 9:37 EST , CC: Dr. Obie Meneses DO; Dr. Jerrell Segundo MD Business Services Sales Agent: Signed Normal [facility] Emergency Department Summary on 03-22-2024 Emergency Department Summary [facility] Medical Records Department [address] [place] [address] Emergency Department Summary 03/22/24 MR#: [id number] Acct: [id number] Name: MOSHE SEVERINO Rep #: [id number] : 1990 34 From: Obie Meneses DO PCP: Dr. Jerrell Segundo MD Status:DEP ER Location: ED HPI HPI - GI History of Present Illness Chief Complaint: Abd Pain Informant: patient and other (Surgeon (Dr. Martin)) Narrative Narrative: 35-year-old female postoperative day 4 from lap guilherme. Patient had a laparoscopic cholecystectomy last week by Dr. Martin. Outpatient workup included gallbladder ultrasound (sludge) as well as a HIDA scan with a 0% ejection fraction. Patient states that the surgery went well. She notes that before surgery she did have a slight cough. After surgery she notes an increased cough with no sputum production no fevers. She states that beginning yesterday she began to experience a significant amount of nausea as well as vomiting. She denies any blood in the stool or the vomit. She notes surgical incisions appear to be doing well. She spoke with her surgeon who was advised to come to emergency. He was noted that the patient has hard to control pain postoperatively. She has a nightly cannabis user but states she has not used any for the past several days. She denies rhinorrhea or significant sore throat. [facility] Medical History Wears glasses Anxiety Marijuana use Heartburn Non-smoker RUQ pain Abnormal biliary HIDA scan Acute sinusitis, unspecified Diarrhea Fatigue Home Medications ???Medication ???Instructions ???Recorded ???Last Taken ???Type escitalopram oxalate 10 mg tablet 15 mg PO DAILY 12/18/23 03/18/24 History ondansetron 4 mg disintegrating 4 mg PO Q8H PRN PRN Nausea #10 tabs 01/23/24 03/17/24 Rx tablet promethazine 25 mg tablet 25 mg PO Q6H PRN PRN Nausea #10 01/26/24 03/17/24 Rx TABLETS omeprazole 20 mg capsule,delayed 20 mg PO DAILY 03/13/24 Unknown History release oxycodone 5 mg capsule 5 mg PO Q6H PRN pain 3 days #7 caps 03/21/24 Unknown Rx albuterol sulfate 90 mcg/actuation 2 puff inhalation Q4H PRN PRN 03/22/24 Unknown Rx aerosol inhaler (Ventolin HFA) Wheezing ##1 amitriptyline 25 mg tablet 25 mg PO QHS 03/22/24 Unknown History ondansetron 4 mg disintegrating 4 mg PO Q6H PRN PRN Nausea #15 tabs 03/22/24 Unknown Rx tablet oxycodone 5 mg tablet PO 03/22/24 Unknown History promethazine 25 mg tablet 25 mg PO Q6H PRN PRN Nausea #10 03/22/24 Unknown Rx TABLETS Allergy/AdvReac Type Severity Reaction Status Date / Time No Known Allergies Allergy Verified 03/22/24 08:17 Family History Aunt Breast cancer Grandmother Breast cancer Diabetes Grandfather Heart disease Mother Hypertension Diabetes Father Hypertension Heart disease Social History adopted: No household members: spouse and children housing: house number of children: 2 current occupational status: employed 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[employer] current occupational exposures/hazards: No pets and animals: Yes pets and animals: cat(s) and dog(s) history of recent travel: No sexually active: Yes Smoking Status: Never smoker alcohol intake: current alcohol intake frequency: holidays/special occasions only Alcohol type: hard liquor substance use type: marijuana well-balanced diet: about half the time caffeine: Yes Type: coffee Number of servings: 2 eating out: rarely or never giancarlo/jainism: Sikh seatbelt use: always do you feel safe at home: Yes 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, [employer] ROS ROS ED Constitutional Constitutional ED: Denies chills, fever(s) or weight loss Eyes Eyes: Denies change in vision or diplopia ENT ENT ED: Denies ear pain, rhinorrhea or sore throat Cardiovascular Cardiovascular: Denies chest pain, orthopnea, palpitations or racing heartbeat Respiratory/Chest Respiratory/Chest: Reports cough; Denies dyspnea or orthopnea Gastrointestinal Gastrointestinal: Reports abdominal pain, diarrhea, nausea and vomiting; Denies constipation Genitourinary Genitourinary ED: Denies dysuria, hematuria or urinary frequency Musculoskeletal Musculoskeletal: Denies arthralgias, back pain or myalgias Integumentary Denies abscess or rash Neurologic Neurologic: Denies headache(s), paresthesias or weakness Psychiatric Psychiatric: Denies anxiety, depression, suicidal ideation or suicidal thoughts Endocrine Endocrinology: Denies polydipsia, polyphagia or polyuria Allergic/Immunologic Allergic/Immunologic ED: Denies mouth swelling, tongue swelling or urticaria EXAM Physical Exam Const Vital Signs: (more content not included)... Normal [facility] Lipaseon 03-22-2024 Lipase [Catalytic activity/Vol] 33 U/L Normal 13-75 [facility] Comment on above: Result Comment: Yves dee note: LIPASE revised reference range effective 22. New Lipase methodology. Expected to produce lower values than the previous assay method. NEW Reference Range: 13 - 75 U/L Performed By: #### L 500.2500, L700.6800, L100.0100 #### [facility] [address] [place], [address] Liver Profileon 03-22-2024 Albumin [Mass/Vol] 4.1 g/dL Normal 3.2-5.0 [facility] Comment on above: Performed By: #### L 700.6800, L501.2450, L100.0100, L500.3400, L500.2500 #### [facility] [address] [place], [address] ALK P 105 U/L Normal 45-117 [facility] Comment on above: Performed By: #### L 700.6800, L501.2450, L100.0100, L500.3400, L500.2500 #### [facility] [address] [place], [address] ALT [Catalytic activity/Vol] 41 U/L Normal 13-56 [facility] Comment on above: Performed By: #### L 700.6800, L501.2450, L100.0100, L500.3400, L500.2500 #### [facility] [address] [place], [address] AST [Catalytic activity/Vol] 17 U/L Normal 15-37 [facility] Comment on above: Performed By: #### L 700.6800, L501.2450, L100.0100, L500.3400, L500.2500 #### [facility] [address] [place], [address] Bilirubin [Mass/Vol] 0.60 mg/dL Normal 0.20-1.00 [facility] Comment on above: Result Comment: For patients on eltrombopag therapy, use of Dimension [place] TBIL is not recommended. Performed By: #### L 700.6800, L501.2450, L100.0100, L500.3400, L500.2500 #### [facility] [address] [place], [address] Bilirubin.direct [Mass/Vol] 0.19 mg/dL Normal 0.00-0.30 [facility] Comment on above: Performed By: #### L 700.6800, L501.2450, L100.0100, L500.3400, L500.2500 #### [facility] [address] [place], [address] Globulin (S) [Mass/Vol] 3.8 g/dL Normal 2.2-4.2 [facility] Comment on above: Performed By: #### L 700.6800, L501.2450, L100.0100, L500.3400, L500.2500 #### [facility] [address] [place], [address] T PROT 7.9 g/dL Normal 6.4-8.2 [facility] Comment on above: Performed By: #### L 700.6800, L501.2450, L100.0100, L500.3400, L500.2500 #### [facility] [address] [place], [address] ,Serum,hCG Quali.on 03-22-2024 HCG, SERUM QUAL Negative Normal [facility] Comment on above: Performed By: #### L 700.6800, L501.2450, L100.0100, L500.3400, L500.2500 #### [facility] [address] [place], [address] 12 Lead EKGon 03-18-2024 12 Lead EKG [facility] Cardiovascular Services [address] [place] [address] 12 Lead EKG 03/18/24 0638 MR#: [id number] Acct: [id number] Name: MOSHE SEVERINO Rep #: [id number] : 1990 34 From: Papo Yip MD Attending Dr: Dr. Jillian Martin MD Status: D EP SD Ordering Dr: Matty Raines MD Date: 03/18/24 Location: [place] Sex: F C Admitted: Test Reason : pre op Blood Pressure : */* mmHG Vent. Rate : 73 BPM Atrial Rate : 73 BPM P-R Int : 132 ms QRS Dur : 88 ms QT Int : 374 ms P-R-T Axes : 59 37 38 degrees QTcB Int : 412 ms Normal sinus rhythm Normal ECG No previous ECGs available Confirmed by Papo Yip ([id number]), content editor JOHN ABDULLAHI ([id number]) on 03/24/2024 1:08:16 PM Referred By: Jillian Martin Confirmed By: Papo Yip 03/24/24 1308 Date Papo Yip MD CC: Dr. Matty Raines MD; Dr. Jerrell eSgundo MD; Dr. Jillian Martin MD Signed Normal [facility] Cholangiogram/ O R,Initialon 03-18-2024 Cholangiogram/ O R,Initial [facility] Imaging Services [address] [place] [address] Cholangiogram/ O R,Initial MR#: [id number] Acct: [id number] Name: MOSHE SEVERINO Rep #: [id number] : 1990 F 34 From: Shree solitario MD PCP: Dr. Jerrell Segundo MD Status: [facility] Study: Cholangiogram/ O R,Initial Date of Exam: 03/18 Exam# [id number] Ordering Dr: Jillian Martin MD [id number] STUDY: INTRAOPERATIVE CHOLANGIOGRAPHY. REASON FOR EXAM: Female, 34 years old. Laparoscopic cholecystectomy. FLUOROSCOPY TIME (if supplied): ( 7 seconds ) minutes/seconds. 3.61 mGy. TECHNIQUE: An intraoperative cholangiogram was performed by the surgeon. Imaging was submitted. COMPARISON: None. FINDINGS: The visualized intra and extrahepatic biliary ducts are unremarkable. No intraluminal filling defect is seen. There is free flow of contrast into the duodenum. RAD/Cholangiogram/ O R,Initial IMPRESSION: Unremarkable intraoperative cholangiogram. Electronically Signed: Shree Rain MD at 13:57 EDT , CC: Dr. Jerrell Segundo MD; Dr. Jillian Martin MD Business Services Sales Agent: Signed Normal [facility] Discharge Instructionon 02-19 Discharge Instruction [facility] Medical Records Department [address] [place] [address] Instructions for Home/Discharge Instructions 03/18/24 0851 MR#: [id number] Acct: [id number] Name: MOSHE SEVERINO Rep #: [id number] : 1990 34 From: Jillian Martin MD PCP: Dr. Jerrell Segundo MD Status:REG [place] Discharge Instructions Diet Discharge Diet: Light diet - advance as tolerated Activity Discharge Activity: May Not Drive (while taking narcotic pain medications.) May shower in (days): 1 Lifting Restrictions: no lifting >20 lbs x 2 wks, no strenuous exercise for 4 wks Dressing / Incision Call your doctor if your incision/area has: Continuous Slow Oozing, Sudden Increased Bleeding, Increased Pain/ Swelling, Increased Redness, Foul Smelling Discharge and Swelling at the incision site Call your doctor if you observe: Fever of 101 or Higher Remove Dressing in: 2 days Cleanse incision/area with: Soap Water Additional Dressing/Incision Instructions:: Steri-Strips will fall off in 7 to 10 days, if they do not fall off okay to remove after 10 days. Follow Up Care Please Follow Up With: Jillian Martin MD When: Call the office for a follow-up appointment 2 weeks; after 5 PM and on the weekends call [phone] with any concerns. Test Results: Test results from this visit will be discussed in further detail at your follow-up appointment, if applicable. Discharge Plan Admission Attending Provider: Jillian Martin Primary Care Provider: Jerrell Segundo Instructions Print Language: Ukrainian Discharge Orders/Prescriptions Prescriptions: New oxycodone 5 mg capsule 5 mg PO Q6H PRN (Reason: pain) 3 Days Qty: 10 0RF Continued escitalopram oxalate 10 mg tablet 15 mg PO DAILY ondansetron 4 mg tablet,disintegrating 4 mg PO Q8H PRN PRN (Reason: Nausea) Qty: 10 0RF promethazine 25 mg tablet 25 mg PO Q6H PRN PRN (Reason: Nausea) Qty: 10 0RF omeprazole 20 mg capsule,delayed release(DR/EC) 20 mg PO DAILY Referrals / Follow Up: Jerrell Segundo MD [Primary Care Provider] - Disposition Disposition (needs filled in before D/C Order can be placed): Home, Self Care 03/18/24 0173 Jillian Martin MD CC: Dr. Jerrell Segundo MD Signed [facility] MR/POSTOP.Umberto 03-18-2024 MR/POSTOP.[facility] Medical Records Department [address] [facility] [place] [address] Anesthesia Postop Eval I 03/18/24901 MR#: [id number] Acct: [id number] Name: MOSHE SEVERINO Rep #: [id number] : 1990 34 From: Natasha Colon PCP: Dr. Jerrell Segundo MD Status:REG [place] Y Race: C Location: [place] [address] Anesthesia: Postop Eval I Current Vital Signs Temperature: 97.4 F Pulse Rate: 109 Blood Pressure: 152/82 Respiratory Rate: 18 Pulse Ox: 98 Oxygen Delivery Method: Room Air Assessment Airway patent: Yes Spontaneous unlabored respirations: Yes Mental status: Awake and Calm nausea: Yes Vomiting: Yes Anesthesia Complication: No Fluid Hydration Crystalloid volume administer (ml): 800 Total IV fluid infused: 800 Progress Note Anesthesia document: Postop Eval 1 completed: Yes 03/18/24907 Date Natasha Pete Signature: Date CC: Signed Normal [facility]/[id number] 03-18-2024 [id number] Medical Records Department [facility] [place] [address] Anesthesia Postop Eval II 03/18/24917 MR#: [id number] Acct: [id number] Name: MOSHE SEVERINO Rep #: [id number] : 1990 34 From: Jerrell Schaffer MD PCP: Dr. Jerrlel Segundo MD Status:REG [place] Y Race: C Location: [place] [address] Anesthesia Postop Eval I Sum Postop Eval Completion status Anesthesia document: Postop Eval 1 completed: Yes Anesthesia Postop Eval I Summary Anesthesia Postop Eval I Summary: Anesthesia Postop Eval I: Assessment Summary Airway patent Yes 03/18/24 09:08 SERVICE DESK TEAM LEAD.GDOTT Spontaneous unlabored Yes 03/18/24 09:08 SERVICE DESK TEAM LEAD.GDOTT respirations Mental status Awake,Calm 03/18/24 09:08 SERVICE DESK TEAM LEAD.GDOTT nausea Yes 03/18/24 09:08 SERVICE DESK TEAM LEAD.GDOTT Vomiting Yes 03/18/24 09:08 SERVICE DESK TEAM LEAD.GDOTT Anesthesia Postop Eval I: Fluid Summary Crystalloid volume administer 800 03/18/24 09:08 SERVICE DESK TEAM LEAD.GDOTT (ml) Colloids volume administered ( ml) Blood Product volume administered (ml) Total IV fluid infused 800 03/18/24 09:08 SERVICE DESK TEAM LEAD.GDOTT Anesthesia Postop Eval I: Summary Notes Anesthesia Complication No 03/18/24 09:08 SERVICE DESK TEAM LEAD.GDOTT Anesthesia Complication Comment: Post-operative progress note Anesthesia: Postop Eval II Evaluation Mental status: Awake Pain Level: 0 nausea: No Vomiting: No 03/18/24917 Date Jerrell Schaffer MD Cosigner Signature: Date CC: Signed Normal [facility] Operative Reporton 4 Operative Report [facility] Medical Records Department [address] [place] [address] Operative Report 03/18/2446 MR#: [id number] Acct: [id number] Name: MOSHE SEVERINO Rep #: [id number] : 1990 34 From: Jillian Matrin MD PCP: Dr. Jerrell Segundo MD Status:[facility] Location: [place] [address] Operative Report (Standard) Operative Information Surgery/Procedure Performed: Laparoscopic cholecystectomy with cholangiograms Surgeon: Jillian Martin Date of Procedure: 03/18/24 Procedure Start Time: 07:48 Procedure Stop Time: 08:52 Pre-Operative Diagnosis: Gallbladder sludge, right upper quadrant pain Post-Operative Diagnosis: Same Select all DRAINS/GRAFTS/IMPLANTS that apply: None Type of Anesthesia: General/Supplemental Special Medications: Ancef 2 g IV x 1 Estimated Blood Loss: <10 cc Specimen collected: Yes Description of specimen(s) removed: Gallbladder Description of surgery: Indications: this is a 34 year-old female who developed abdominal pain/nausea/vomiting and on workup was found to have gallbladder sludge, with a normal common bile duct, HIDA ejection fraction 0%. Laparoscopic cholecystectomy was elected. Description procedure: The patient was placed on operating table in supine position. A timeout was completed verifying correct patient, procedure, site, position and special equipment prior to beginning procedure. General Anesthesia was induced. The abdomen was prepped and draped in usual sterile fashion. An incision was made in the natural skin line above the umbilicus. The fascia was elevated and incised. The peritoneum was elevated and incised. Entry into the peritoneum was confirmed visually and no bowel was noted in the vicinity of the incision. Cabrera trocar was placed. The abdomen was insufflated with carbon dioxide to a pressure of 12-15 mmHg. Patient tolerated insufflation well. The laparoscope was then inserted and abdomen inspected. No injuries from init ial trocar placement were noted. Additional trochars were then inserted in the following locations 5 mm trocar in the epigastrium and 2 more 5 mm trochars along the right costal margin. The abdomen was inspected no abnormalities were found. The table is placed in reverse Trendelenburg position with the right side up. The dome of the gallbladder was grasped with atraumatic grasper passed through the lateral port and retracted over the dome of the liver. Infundibulum was then grasped with atraumatic grasper through the midclavicular port and retracted to the right lower quadrant. This maneuver exposed Calot's triangle. The peritoneum overlying the gallbladder infundibulum was then incised and cystic duct and artery identified and circumferentially dissected. Mcmahon catheter was used for cholangiograms. The cholangiogram showed good filling of the common bile duct into the duodenum with no filling defects, good filling of the right and left bile ducts as well. The cystic duct and artery were then doubly clipped and divided close to the gallbladder. The gallbladder then dissected from its peritoneal attachments by electrocautery. Hemostasis was checked and the gallbladder and contained stones were removed using the endoscopic retrieval bag through the umbilical port. The gallbladder is passed off table as specimen. The gallbladder fossa was irrigated with saline and hemostasis obtained. There is no evidence of bleeding from the gallbladder fossa or cystic artery leakage of bile from the cystic duct stump. Secondary trochars removed under direct vision. No bleeding was noted the trocar sites. The laparoscope was withdrawn and umbilical trocar removed. The abdomen was allowed to collapse. The fascia of the 12 mm trocar was closed with a [id number] 0 Vicryl suture. The skin was closed with sutures of 4-0 Monocryl and Steri-Strips. The patient was extubated. The patient tolerated procedure well and was taken to the postanesthesia care unit in stable condition. Surgical Findings: Cholangiograms normal Dog Pound Attendant senior data scientist: Yes Dynamite Cartridge Crimper: Joanna Gill Tasks completed by speech language assistant: Opening closing and Retracting Complications Complications: No 03/18/24 0853 Cosigner Signature (if applicable): CC: Dr. Jerrell Segundo MD; Dr. Jillian Martin MD Signed Normal [facility] ,Urineon 03-18-2024 Beta HCG ( test) Ql (U) Negative Normal [facility] Comment on above: Result Comment: Very dilute urine specimens, as indicated by a low specific gravity, may not contain sales and marketing representative levels of hCG. If is still suspected, a first morning urine specimen should be collected 48 hours later and tested. Performed By: #### L 500.2500, L700.6800, L100.0100 #### [facility] [address] [place], [address] Surgery Specimen Level IIIon 03-17-2024 Surgery Specimen Level III ---- Patient Age/Sex Location Account Attending Physician ---- MOSHE SEVERINO 34/ [place] [id number] Dr. Jillian Martin MD ---- Specimen: [id number] Received: 03/18/24 Status: PATRICIO Holley Num: [id number] Spec Type: GALLBLADDE Subm Dr: Dr. Jillian Martin MD HEADER OPERATION: Laparoscopic, cholecystectomy with IOC PRE-OP DIAGNOSIS: Right upper quadrant pain, gallbladder sludge, abnormal biliary HIDA scan TISSUE SUBMITTED: Gallbladder ---- MICROSCOPIC DIAGNOSIS Gallbladder, cholecystectomy: Chronic cholecystitis and cholesterolosis. See comment. 03/19/2024 COMMENT No stones are identified in the container or in the gallbladder. MICROSCOPIC DESCRIPTION Slides are reviewed. GROSS DESCRIPTION Received is one container labeled with the patient's name and designated gallbladder. The specimen consists of a gallbladder measuring 8.5 cm in length and up to 4.0 cm in diameter. The external surface is pink-yeager, smooth and glistening for the most part. Focally it is granular, hemorrhagic and contains cautery artifact. The gallbladder contains green-yellow mucoid bile. No stones are identified in the container or in the gallbladder. The mucosa also shows several yellowish streaks consistent with cholesterolosis. The mucosa is bile-stained and without any mass lesions. The gallbladder wall measures up to 0.2 cm in thickness. Residential Housekeeper sections from the gallbladder and the cystic duct are submitted in one cassette. / SJ:mr 03/18/2024 TC:3 CPT: 51226 ---- Patient Age/Sex Location Account Attending Physician ---- MOSHE SEVERINO 34/F [place] [id number] Dr. Jillian Martin MD ---- Signed (signature on file) Dr. Lei Green MD 03/19/24 1412 ---- [facility] Comment on above: Performed By: #### L 500.2500, L700.6800, L100.0100 #### [facility] [address] [place], [address] CBC W/Diff, Automatedon 10-2 2-2023 Absolute Lymph 3.37 X10 3/uL Normal 0.83-4.51 [facility] Comment on above: Performed By: #### L 500.3400, L100.0100 #### [facility] [address] [place], [address] Absolute Neut 7.2 X10 3/uL Normal 2.0-7.7 [facility] Comment on above: Performed By: #### L 500.3400, L100.0100 #### [facility] [address] [place], [address] Basophils/100 WBC (Bld) 0.4 % Normal 0-1 [facility] Comment on above: Performed By: #### L 500.3400, L100.0100 #### [facility] [address] [place], [address] Eosinophils/100 WBC (Bld) 2.1 % Normal 0-5 [facility] Comment on above: Performed By: #### L 500.3400, L100.0100 #### [facility] [address] [place], [address] Erythrocyte distribution width (RBC) [Ratio] 11.5 % Low 11.6-14.6 [facility] Comment on above: Performed By: #### L 500.3400, L100.0100 #### [facility] [address] [place], [address] Hematocrit (Bld) [Volume fraction] 43.1 % Normal 37-47 [facility] Comment on above: Performed By: #### L 500.3400, L100.0100 #### [facility] [address] [place], [address] Hemoglobin (Bld) [Mass/Vol] 14.5 g/dL Normal 12.0-15.0 [facility] Comment on above: Performed By: #### L 500.3400, L100.0100 #### [facility] [address] [place], [address] IG% 0.500 Normal 0.0-0.9 [facility] Comment on above: Result Comment: IG% - Immature Granulocytes (promyelocytes, myelocytes and metamyelocytes) > 1% indicates that a LEFT SHIFT is Present. Performed By: #### L 500.3400, L100.0100 #### [facility] [address] [place], [address] Lymphocytes/100 WBC (Bld) 29.0 % Normal 19-41 [facility] Comment on above: Performed By: #### L 500.3400, L100.0100 #### [facility] [address] [place], [address] MCH (RBC) [Entitic mass] 30.5 pg Normal 27.0-32.0 [facility] Comment on above: Performed By: #### L 500.3400, L100.0100 #### [facility] [address] [place], [address] MCHC (RBC) [Mass/Vol] 33.6 g/dL Normal 32-36 [facility] Comment on above: Performed By: #### L 500.3400, L100.0100 #### [facility] [address] [place], [address] MCV (RBC) [Entitic vol] 90.7 fL Normal 81-99 [facility] Comment on above: Performed By: #### L 500.3400, L100.0100 #### [facility] [address] [place], [address] Monocytes/100 WBC (Bld) 6.1 % Normal 0-10 [facility] Comment on above: Performed By: #### L 500.3400, L100.0100 #### [facility] [address] [place], [address] Neutrophils/100 WBC (Bld) 61.9 % Normal 47-70 [facility] Comment on above: Performed By: #### L 500.3400, L100.0100 #### [facility] [address] [place], [address] Nucleated RBC (Bld) [#/Vol] 0 10*3/uL Normal 0-5 [facility] Comment on above: Performed By: #### L 500.3400, L100.0100 #### [facility] [address] [place], [address] Platelet mean volume (Bld) [Entitic vol] 9.8 fL Normal 6.2-12.0 [facility] Comment on above: Performed By: #### L 500.3400, L100.0100 #### [facility] [address] [place], [address] Platelets (Bld) [#/Vol] 309 10*3/uL Normal 150-450 [facility] Comment on above: Performed By: #### L 500.3400, L100.0100 #### [facility] [address] [place], [address] RBC (Bld) [#/Vol] 4.75 10*6/uL Normal 4.2-5.4 [facility] Comment on above: Performed By: #### L 500.3400, L100.0100 #### [facility] [address] [place], [address] RDW SD 38.4 fl Normal 35.1-43.9 [facility] Comment on above: Performed By: #### L 500.3400, L100.0100 #### [facility] [address] [place], [address] WBC (Bld) [#/Vol] 11.6 10*3/uL High 4.4-11.0 [facility] Comment on above: Performed By: #### L 500.3400, L100.0100 #### [facility] [address] [place], [address] Liver Profileon 03-10-2024 Albumin [Mass/Vol] 4.1 g/dL Normal 3.2-5.0 [facility] Comment on above: Performed By: #### L 500.3400, L100.0100 #### [facility] [address] [place], [address] ALK P 103 U/L Normal 45-117 [facility] Comment on above: Performed By: #### L 500.3400, L100.0100 #### [facility] [address] [place], [address] ALT [Catalytic activity/Vol] 28 U/L Normal 13-56 [facility] Comment on above: Performed By: #### L 500.3400, L100.0100 #### [facility] [address] [place], [address] AST [Catalytic activity/Vol] 8 U/L Low 15-37 [facility] Comment on above: Performed By: #### L 500.3400, L100.0100 #### [facility] [address] [place], [address] Bilirubin [Mass/Vol] 0.30 mg/dL Normal 0.20-1.00 [facility] Comment on above: Result Comment: For patients on eltrombopag therapy, use of Dimension [place] TBIL is not recommended. Performed By: #### L 500.3400, L100.0100 #### [facility] [address] [place], [address] Bilirubin.direct [Mass/Vol] 0.11 mg/dL Normal 0.00-0.30 [facility] Comment on above: Performed By: #### L 500.3400, L100.0100 #### [facility] [address] [place], [address] Globulin (S) [Mass/Vol] 3.7 g/dL Normal 2.2-4.2 [facility] Comment on above: Performed By: #### L 500.3400, L100.0100 #### [facility] [address] [place], [address] T PROT 7.8 g/dL Normal 6.4-8.2 [facility] Comment on above: Performed By: #### L 500.3400, L100.0100 #### [facility] [address] [place], [address] Surgery Visit Reporton 03-10 Surgery Visit Report [facility] [address] [place] [address] OFFICE VISIT Date of Service: 03/10/24 MR#: [id number] Acct: [id number] Name: MOSHE SEVERINO Rep #: [id number] : 1990 Provider: Dr. Jillian mcgill MD Age/Sex: 34/F Location: [facility] Status: Signed Intake Vital Signs 03/06/24 08:54 03/10/24 13:44 Height 5 ft 4 in 5 ft 4 in Weight: 202 lb BMI 34.7 BP 123/78 H Blood Pressure Location Rt brachial Position Sitting Respiration 16 Intake Visit Reasons: ABDOMINAL HIDA Chief Complaint: gallbladder issues Tenant Coordinator Required: No Is patient in pain?: Yes (RUQ abd) Pain scale (1-10): 3 Allergies No Known Allergies Allergy (Verified 03/10/24 13:45) Medications ???Medication ???Instructions ???Recorded ???Confirmed ???Type escitalopram oxalate 10 mg tablet 15 mg PO DAILY 12/18/23 03/10/24 History ondansetron 4 mg disintegrating 4 mg PO Q8H PRN PRN Nausea #10 tabs 01/23/24 03/10/24 Rx tablet promethazine 25 mg tablet 25 mg PO Q6H PRN PRN Nausea #10 01/26/24 03/10/24 Rx TABLETS Have you fallen in the past year?: No PFSH Medical History (Updated 03/11/24 @ 15:[address] 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[employer] current occupational exposures/hazards: No pets and animals: Yes pets and animals: cat(s) and dog(s) history of recent travel: No sexually active: Yes Smoking Status: Never smoker alcohol intake: current alcohol intake frequency: holidays/special occasions only Alcohol type: hard liquor substance use type: marijuana well-balanced diet: about half the time caffeine: Yes Type: coffee Number of servings: 2 eating out: rarely or never giancarlo/jainism: Sikh seatbelt use: always do you feel safe at home: Yes 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, [employer] Female Reproductive History Menstrual Ab spontaneous: 1 HPI HPI HPI: 34-year-old female presents due to 2 months of right upper quadrant pain. Patient currently rates the pain about a 3/10. Patient states she gets pain after eating typically at about 5 to 10 mi nutes. Patient had 2 larger episodes 1 in January 1 in February. Patient had sludge noted on her gallbladder ultrasound. Patient also had a HIDA scan that showed a 0% ejection fraction and also reproduce the pain. Patient's denies any reflux history or symptoms. Patient did previously have a slight elevation of AST and ALT in early/mid January as well as white blood count 12.4 in mid February. Patient states she is eating a bland diet but is able to eat and drink. ROS General General: No weight change, appetite, fatigue, colon cancer or breast cancer HEENT HEENT: No difficulty swallowing, eye injury, eye surgery, swollen glands or hoarseness Endo Endocrine: No thyroid disease, diabetes mellitus, thyroid cancer, Hair loss, heat intolerance or cold intolerance Skin Skin: No rash or changing moles Musc Musculoskeletal: No back problems, arthritis, rheumatoid arthritis, gout or joint pain Cardio Cardiovascular: No murmur, pacemaker, heart disease, atrial fibrillation, high blood pressure, heart attack, heart stent, palpitations, shortness of breat with exertion or chest pain Psych Psychiatric: No depression, anxiety or hearing voices Resp Respiratory: No shortness of breath, No sleep apnea, No cough, No COPD, No asthma, No emphysema and No wheezing Gastro Gastrointestinal: Yes abdominal pain, Yes nausea or vomiting, No diarrhea, No constipation, No blood in stool, No acid reflux, No hemorrhoids, No ulcers, Yes gallbladder problem and No black,tarry stools Mika Hematologic: No blood thinners, No blood disorders, No bleeding, No anemia and No blood clots Neuro Neurologic: No numbness and No tingling Exam Const General: cooperative, healthy appearing, comfortable and no acute distress HENMT Head: normocephalic and atraumatic Neck Neck: supple Resp Effort Inspection: normal respiratory effort Cardio Rate: regular rate GI Inspection: non-distended Palpation: soft, no hernias and nontender Skin General: no rashes or lesions noted Neuro General: CN's II-XI intact bilaterally Extrem General: normal to inspection Psych Mental Status: mental status grossl (more content not included)... Normal [facility] ANTINUCLEAR ANTIBODIES [facility] 03-03-2024 HUGH,DIRECT Negative Normal Negative [facility] Comment on above: Order Comment: Order Date: 03/02/24Order Info: [id number] - HUGH Result Comment: Perf ormed at: - [facility] [address] [id number] Feeder Operator: Ramsey Geller PhD, Phone: [phone] Performed By: #### L 403.7319, L386.4379, L100.0100 #### [facility] [place], [address] Hepatobilliary Img w/Pharm I nton 03-03-2024 Hepatobilliary Img w/Pharm Int [facility] [address] [place] [address] Hepatobilliary Img w/Pharm Int MR#: [id number] Acct: [id number] Name: MOSHE SEVERINO Rep #: [id number] : 1990 F 34 From: Viraj Carrillo MD PCP: Dr. Jerrell Segundo MD Status: REG CL Study: Hepatobilliary Img w/Pharm Int Date of Exam: 1 Exam# [id number] Ordering Dr: Jerrell Segundo MD [id number] CLINICAL: Female, 34 years old. Sludge in gallbladder. Need to know gallbladder function -- Patient vomits and has a lot of pain every day NUCLEAR BILIARY SCAN TECHNIQUE: Following the intravenous administration of 5.8 mCi of Tc Mebrofenin, hepatobiliary images was performed. 1.8 mcg of Cholecystokinin was then administered intravenously over a 30 minute period. COMPARISON STUDIES : NM - None. CR - Not available for review at this time. CT - CT abdomen and pelvis with contrast 06/27/2022. MR - Not available for review at this time. US - 01/30/2024. FINDINGS: Relatively prompt and homogeneous radiopharmaceutical concentration is noted by a normal sized liver. There are no parenchymal defects noted.. Gallbladder activity is identified at 15 minutes post radiopharmaceutical administration. Small bowel activity is identified at 30 minutes post radiopharmaceutical administration. Washout of the radiopharmaceutical by the hepatic parenchyma occurs in a normal fashion on qualitative inspection. The post Cholecystokinin gallbladder ejection fraction is calculated at 10, 20 and 30 minutes following Cholecystokinin administration was noted to be 0% (normal greater than 35%). NM/Hepatobilliary Img w/Pharm Int IMPRESSION: Normal hepatobiliary scan but abnormal ejection fraction of 0% consistent with acalculous cholecystitis. A gallbladder ejection fraction calculated to be greater than 35% following the administration of Cholecystokinin makes the probability of functional hepatobiliary disease (gallbladder and/or sphincter of Oddi dyskinesia) and/or organic hepatobiliary disease (chronic acalculous cholecystitis and/or cystic duct syndrome) to be low. (Julieth Silva et al, Journal of Nuclear Medicine 32:1695, 1990). Electronically Signed: Viraj Carrillo MD at 12:50 EDT , CC: Dr. Jerrell Segundo MD Business Services Sales Agent: Signed Normal [facility] CBC W/Diff, Automatedon 02-17 Absolute Lymph 1.99 X10 3/uL Normal 0.83-4.51 [facility] Comment on above: Order Comment: Order Date: 03/02/24Order Info: 0184-1 - CBCDOrder Info: [id number] - SED Performed By: #### L 500.2500, L700.6800, L100.0100 #### [facility] [address] [place], [address] Absolute Neut 9.6 X10 3/uL High 2.0-7.7 [facility] Comment on above: Order Comment: Order Date: 03/02/24Order Info: 0184-1 - CBCDOrder Info: [id number] - SED Performed By: #### L 500.2500, L700.6800, L100.0100 #### [facility] [address] [place], [address] Basophils/100 WBC (Bld) 0.4 % Normal 0-1 [facility] Comment on above: Order Comment: Order Date: 03/02/24Order Info: 018- - CBCDOrder Info: [id number] - SED Performed By: #### L 500.2500, L700.6800, L100.0100 #### [facility] [address] [place], [address] Eosinophils/100 WBC (Bld) 0.7 % Normal 0-5 [facility] Comment on above: Order Comment: Order Date: 03/02/24Order Info: 183- - CBCDOrder Info: [id number] - SED Performed By: #### L 500.2500, L700.6800, L100.0100 #### [facility] [address] [place], [address] Erythrocyte distribution width (RBC) [Ratio] 11.6 % Normal 11.6-14.6 [facility] Comment on above: Order Comment: Order Date: 03/02/24Order Info: 183- - CBCDOrder Info: [id number] - SED Performed By: #### L 500.2500, L700.6800, L100.0100 #### [facility] [address] [place], [address] Hematocrit (Bld) [Volume fraction] 45.3 % Normal 37-47 [facility] Comment on above: Order Comment: Order Date: 03/02/24Order Info: 018- - CBCDOrder Info: [id number] - SED Performed By: #### L 500.2500, L700.6800, L100.0100 #### [facility] [address] [place], [address] Hemoglobin (Bld) [Mass/Vol] 15.4 g/dL High 12.0-15.0 [facility] Comment on above: Order Comment: Order Date: 03/02/24Order Info: 018- - CBCDOrder Info: [id number] - SED Performed By: #### L 500.2500, L700.6800, L100.0100 #### [facility] [address] [place], [address] IG% 0.300 Normal 0.0-0.9 [facility] Comment on above: Order Comment: Order Date: 03/02/24Order Info: 183- - CBCDOrder Info: 37527-2 - SED Result Comment: IG% - Immature Granulocytes (promyelocytes, myelocytes and metamyelocytes) > 1% indicates that a LEFT SHIFT is Present. Performed By: #### L 500.2500, L700.6800, L100.0100 #### [facility] [address] [place], [address] Lymphocytes/100 WBC (Bld) 16.0 % Low 19-41 [facility] Comment on above: Order Comment: Order Date: 03/02/24Order Info: 183-05 - CBCDOrder Info: [id number] - SED Performed By: #### L 500.2500, L700.6800, L100.0100 #### [facility] [address] [place], [address] MCH (RBC) [Entitic mass] 30.4 pg Normal 27.0-32.0 [facility] Comment on above: Order Comment: Order Date: 03/02/24Order Info: 183-05 - CBCDOrder Info: [id number] - SED Performed By: #### L 500.2500, L700.6800, L100.0100 #### [facility] [address] [place], [address] MCHC (RBC) [Mass/Vol] 34.0 g/dL Normal 32-36 [facility] Comment on above: Order Comment: Order Date: 03/02/24Order Info: 183-05 - CBCDOrder Info: [id number] - SED Performed By: #### L 500.2500, L700.6800, L100.0100 #### [facility] [address] [place], [address] MCV (RBC) [Entitic vol] 89.3 fL Normal 81-99 [facility] Comment on above: Order Comment: Order Date: 03/02/24Order Info: 183-1 - CBCDOrder Info: [id number] - SED Performed By: #### L 500.2500, L700.6800, L100.0100 #### [facility] [address] [place], [address] Monocytes/100 WBC (Bld) 5.7 % Normal 0-10 [facility] Comment on above: Order Comment: Order Date: 03/02/24Order Info: 183- - CBCDOrder Info: [id number] - SED Performed By: #### L 500.2500, L700.6800, L100.0100 #### [facility] [address] [place], [address] Neutrophils/100 WBC (Bld) 76.9 % High 47-70 [facility] Comment on above: Order Comment: Order Date: 03/02/24Order Info: 183- - CBCDOrder Info: [id number] - SED Performed By: #### L 500.2500, L700.6800, L100.0100 #### [facility] [address] [place], [address] Nucleated RBC (Bld) [#/Vol] 0 10*3/uL Normal 0-5 [facility] Comment on above: Order Comment: Order Date: 03/02/24Order Info: 183- - CBCDOrder Info: [id number] - SED Performed By: #### L 500.2500, L700.6800, L100.0100 #### [facility] [address] [place], [address] Platelet mean volume (Bld) [Entitic vol] 10.3 fL Normal 6.2-12.0 [facility] Comment on above: Order Comment: Order Date: 03/02/24Order Info: 183- - CBCDOrder Info: [id number] - SED Performed By: #### L 500.2500, L700.6800, L100.0100 #### [facility] [address] [place], [address] Platelets (Bld) [#/Vol] 334 10*3/uL Normal 150-450 [facility] Comment on above: Order Comment: Order Date: 03/02/24Order Info: 183- - CBCDOrder Info: [id number] - SED Performed By: #### L 500.2500, L700.6800, L100.0100 #### [facility] [address] [place], [address] RBC (Bld) [#/Vol] 5.07 10*6/uL Normal 4.2-5.4 [facility] Comment on above: Order Comment: Order Date: 03/02/24Order Info: 183- - CBCDOrder Info: 09388-0 - SED Performed By: #### L 500.2500, L700.6800, L100.0100 #### [facility] [address] [place], [address] RDW SD 36.9 fl Normal 35.1-43.9 [facility] Comment on above: Order Comment: Order Date: 03/02/24Order Info: 183- - CBCDOrder Info: [id number] - SED Performed By: #### L 500.2500, L700.6800, L100.0100 #### [facility] [address] [place], [address] WBC (Bld) [#/Vol] 12.4 10*3/uL High 4.4-11.0 [facility] Comment on above: Order Comment: Order Date: 03/02/24Order Info: 183- - CBCDOrder Info: [id number] - SED Performed By: #### L 500.2500, L700.6800, L100.0100 #### [facility] [address] [place], [address] CRPon 03-02-2024 C-REACTIVE PROT < 2.90 Normal 0.0-3.0 [facility] Comment on above: Order Comment: Order Date: 03/02/24Order Info: 0786-1 - CMPOrder Info: 3040-3 - LIPASEOrder Info: [id number] - CRP Result Comment: C-Re active Protein (CRP) provides useful information for the diagnosis, therapy and monitoring of inflammatory processes and associated diseases. For the evaluation of Relative Risk for Cardiovascular Disease, a High Sensitivity CRP (HSCRP) should be ordered. Performed By: #### L 500.2500, L700.6800, L100.0100 #### [facility] [address] [place], [address] Comprehensive Metabolic Prof ilon 03-02-2024 Albumin [Mass/Vol] 4.3 g/dL Normal 3.2-5.0 [facility] Comment on above: Order Comment: Order Date: 03/02/24Order Info: 0786-1 - CMPOrder Info: 3040-3 - LIPASEOrder Info: 08818-8 - CRP Performed By: #### L 500.2500, L700.6800, L100.0100 #### [facility] [address] [place], [address] Albumin/Globulin [Mass ratio] 1.0 {ratio} Normal 0.9-2.4 [facility] Comment on above: Order Comment: Order Date: 03/02/24Order Info: 0786-1 - CMPOrder Info: 3040-3 - LIPASEOrder Info: 93938-5 - CRP Performed By: #### L 500.2500, L700.6800, L100.0100 #### [facility] [address] [place], [address] ALK P 109 U/L Normal 45-117 [facility] Comment on above: Order Comment: Order Date: 03/02/24Order Info: 0786-1 - CMPOrder Info: 3040-3 - LIPASEOrder Info: 08927-0 - CRP Performed By: #### L 500.2500, L700.6800, L100.0100 #### [facility] [address] [place], [address] ALT [Catalytic activity/Vol] 66 U/L High 13-56 [facility] Comment on above: Order Comment: Order Date: 03/02/24Order Info: 0786-1 - CMPOrder Info: 3040-3 - LIPASEOrder Info: 78841-6 - CRP Performed By: #### L 500.2500, L700.6800, L100.0100 #### [facility] [address] [place], [address] AST [Catalytic activity/Vol] 30 U/L Normal 15-37 [facility] Comment on above: Order Comment: Order Date: 03/02/24Order Info: 0786-1 - CMPOrder Info: 3040-3 - LIPASEOrder Info: [id number] - CRP Performed By: #### L 500.2500, L700.6800, L100.0100 #### [facility] [address] [place], [address] Bilirubin [Mass/Vol] 0.90 mg/dL Normal 0.20-1.00 [facility] Comment on above: Order Comment: Order Date: 03/02/24Order Info: 0786-1 - CMPOrder Info: 3040-3 - LIPASEOrder Info: [id number] - CRP Result Comment: For patients on eltrombopag therapy, use of Dimension [place] TBIL is not recommended. Performed By: #### L 500.2500, L700.6800, L100.0100 #### [facility] [address] [place], [address] BUN/CRE 14.1 RATIO Normal 10-20 [facility] Comment on above: Order Comment: Order Date: 03/02/24Order Info: 0786-1 - CMPOrder Info: 3040-3 - LIPASEOrder Info: 02455-7 - CRP Performed By: #### L 500.2500, L700.6800, L100.0100 #### [facility] [address] [place], [address] CA,Total 9.8 mg/dL Normal 8.5-10.1 [facility] Comment on above: Order Comment: Order Date: 03/02/24Order Info: 0786-1 - CMPOrder Info: 3040-3 - LIPASEOrder Info: 44143-1 - CRP Performed By: #### L 500.2500, L700.6800, L100.0100 #### [facility] [address] [place], [address] Chloride [Moles/Vol] 103 mmol/L Normal 98-107 [facility] Comment on above: Order Comment: Order Date: 03/02/24Order Info: 86-1 - CMPOrder Info: 3040-3 - LIPASEOrder Info: [id number] - CRP Performed By: #### L 500.2500, L700.6800, L100.0100 #### [facility] [address] [place], [address] CO2 [Moles/Vol] 26.0 mmol/L Normal 21.0-32.0 [facility] Comment on above: Order Comment: Order Date: 03/02/24Order Info: 86-1 - CMPOrder Info: 3040-3 - LIPASEOrder Info: 83689-2 - CRP Performed By: #### L 500.2500, L700.6800, L100.0100 #### [facility] [address] [place], [address] Creatinine [Mass/Vol] 0.85 mg/dL Normal 0.55-1.02 [facility] Comment on above: Order Comment: Order Date: 03/02/24Order Info: 0786-1 - CMPOrder Info: 3040-3 - LIPASEOrder Info: [id number] - CRP Result Comment: The validity of the calculated GFR GFRAA in patients over 70 years has not been determined. Clinical correlation is essential. Performed By: #### L 500.2500, L700.6800, L100.0100 #### [facility] [address] [place], [address] EST GFR - AA 99 mL/min Normal >60 [facility] Comment on above: Order Comment: Order Date: 03/02/24Order Info: 0786-1 - CMPOrder Info: 3040-3 - LIPASEOrder Info: [id number] - CRP Result Comment: Afri can [place] GFR Calc Performed By: #### L 500.2500, L700.6800, L100.0100 #### [facility] [address] [place], [address] GAP 9 Normal 5-15 [facility] Comment on above: Order Comment: Order Date: 03/02/24Order Info: 0786-1 - CMPOrder Info: 304-3 - LIPASEOrder Info: [id number] - CRP Performed By: #### L 500.2500, L700.6800, L100.0100 #### [facility] [address] [place], [address] GFR/1.73 sq M.predicted among non-blacks MDRD (S/P/Bld) [Vol rate/Area] 82 mL/min/{1.73_m2} Normal >60 [facility] Comment on above: Order Comment: Order Date: 03/02/24Order Info: 0786-1 - CMPOrder Info: 3040-3 - LIPASEOrder Info: [id number] - CRP Result Comment: Non- GFR Calc Performed By: #### L 500.2500, L700.6800, L100.0100 #### [facility] [address] [place], [address] Globulin (S) [Mass/Vol] 4.1 g/dL Normal 2.2-4.2 [facility] Comment on above: Order Comment: Order Date: 03/02/24Order Info: 0786-1 - CMPOrder Info: 3040-3 - LIPASEOrder Info: [id number] - CRP Performed By: #### L 500.2500, L700.6800, L100.0100 #### [facility] [address] [place], [address] Glucose [Mass/Vol] 81 mg/dL Normal 74-106 [facility] Comment on above: Order Comment: Order Date: 03/02/24Order Info: 0786-1 - CMPOrder Info: 3040-3 - LIPASEOrder Info: 81608-0 - CRP Performed By: #### L 500.2500, L700.6800, L100.0100 #### [facility] [address] [place], [address] Potassium [Moles/Vol] 3.6 mmol/L Normal 3.5-5.1 [facility] Comment on above: Order Comment: Order Date: 03/02/24Order Info: 0786-1 - CMPOrder Info: 3040-3 - LIPASEOrder Info: 51650-1 - CRP Performed By: #### L 500.2500, L700.6800, L100.0100 #### [facility] [address] [place], [address] Sodium [Moles/Vol] 137 mmol/L Normal 136-145 [facility] Comment on above: Order Comment: Order Date: 03/02/24Order Info: 0786-1 - CMPOrder Info: 3040-3 - LIPASEOrder Info: [id number] - CRP Performed By: #### L 500.2500, L700.6800, L100.0100 #### [facility] [address] [place], [address] T PROT 8.4 g/dL High 6.4-8.2 [facility] Comment on above: Order Comment: Order Date: 03/02/24Order Info: 0786-1 - CMPOrder Info: 3040-3 - LIPASEOrder Info: [id number] - CRP Performed By: #### L 500.2500, L700.6800, L100.0100 #### [facility] [address] [place], [address] Urea nitrogen [Mass/Vol] 12 mg/dL Normal 7-18 [facility] Comment on above: Order Comment: Order Date: 03/02/24Order Info: 0786-1 - CMPOrder Info: 3040-3 - LIPASEOrder Info: [id number] - CRP Performed By: #### L 500.2500, L700.6800, L100.0100 #### [facility] [address] [place], [address] Erythrocyte Sed Rateon 03-02 SED RATE 13 mm/hr Normal 0-30 [facility] Comment on above: Order Comment: Order Date: 03/02/24Order Info: 0184-1 - CBCDOrder Info: 11887-2 - SED Performed By: #### L 500.2500, L700.6800, L100.0100 #### [facility] [address] [place], [address] Lipaseon 03-02-2024 Lipase [Catalytic activity/Vol] 26 U/L Normal 13-75 [facility] Comment on above: Order Comment: Order Date: 03/02/24Order Info: 0786-1 - CMPOrder Info: 3040-3 - LIPASEOrder Info: 16835-7 - CRP Result Comment: Yves dee note: LIPASE revised reference range effective 22. New Lipase methodology. Expected to produce lower values than the previous assay method. NEW Reference Range: 13 - 75 U/L Performed By: #### L 500.2500, L700.6800, L100.0100 #### [facility] [address] [place], [address] M7400.3302on 02-04-2024 M7400.3302 __ TESTING PERFORMED AT [facility]. ORIGINAL REPORT ON FILE IN LAB CONTAINS ADDITIONAL TEST SITE INFORMATION. Giardia Lamblia EIA NEGATIVE Normal [facility] Comment on above: Performed By: #### L 500.2500, L700.6800, L100.0100 #### [facility] [address] [place], [place], [address] Ova and Parasites 8623on OP OVA AND PARASITES EXAM, ROUTINE These results were obtained using wet preparation(s) and trichrome stained smear. This test does not include testing for Crytosporidium parvum, Cyclospora, or Microsporidia. O+P Spec Micro One negative specimen does not rule out the possibility of a parasitic infection. TESTING PERFORMED AT [facility]. ORIGINAL REPORT ON FILE IN LAB CONTAINS ADDITIONAL TEST SITE INFORMATION. Ova/Parasite Exam NO OVA, CYSTS, OR PARASITES FOUND. Normal [facility] Comment on above: Performed By: #### L 500.2500, L700.6800, L100.0100 #### [facility] [address] [place], [address] Abdomen Limitedon 01-30-2024 Abdomen Limited [facility] [address] [place] [address] Abdomen Limited MR#: [id number] Acct: [id number] Name: MOSHE SEVERINO Rep #: [id number] : 1990 F 34 From: Issac Rosenthal PCP: Dr. Jerrell Segundo MD Status: REG CLI Study: Abdomen Limited Date of Exam: 01/30/24 Exam# [id number] Ordering Dr: Jerrell Segundo MD [id number] INDICATION: bile duct stones EXAMINATION: Ultrasound US Abdomen Limited (quadrant) TECHNIQUE: Liao scale and color doppler imaging was performed of the right upper quadrant. COMPARISON: CT scan of the abdomen and pelvis of 06/27/2022 FINDINGS: LIVER: The liver is within normal limits in size and echogenicity measuring about 16 cm in length. The portal vein is patent with normal hepatopedal flow. No focal hepatic lesion. There is no free fluid. GALLBLADDER AND BILIARY TREE: Mild sludge is seen in the gallbladder. No gallstones are identified. Normal gallbladder wall measuring 4.3 mm. The proximal common bile duct measures 3.5 mm, which is within normal limits for the patient''s age. Sonographic Ortiz''s sign: Negative. PANCREAS: The pancreas is obscured by bowel gas. RIGHT KIDNEY: The right kidney measures 9.4 cm in length. The renal cortex measures 1 cm. No evidence of hydronephrosis US/Abdomen Limited IMPRESSION: Mild sludge in the gallbladder without evidence of gallstones or biliary dilatation. Electronically Signed: Issac Gr MD at 10:57 EDT , CC: Dr. Jerrell Segundo MD Business Services Sales Agent: Signed Normal [facility] ([facility])on 01-28-2024 CDIFF Order Date: 01/27/24 Order Info: [id number] - CUST Pending 027 027 NAP1-B1 Presumptive Negative *for epidemiolologic???use C. Diff PCR Negative- No toxigenic C. Diff Detected Normal [facility] Comment on above: Performed By: #### L 500.2500, L700.6800, L100.0100 #### [facility] [address] [place], [address] EBV Acute Prof IgG / IgMon 0 01-28-2024 EB Ab VCA, IgG > 600.0 High 0.0-17.9 [facility] Comment on above: Order Comment: Order Date: 01/27/24Order Info: [id number] - EBGMOrder Info: [id number] - EBEAGOrder Info: [id number] - EBVG Result Comment: Nega tive <18.0 Equivocal 18.0 - 21.9 Positive >21.9 Performed By: #### L 500.3400, L100.0100 #### [facility] [address] [place], [address] EBV Ab VCA, IgM < 36.0 Normal 0.0-35.9 [facility] Comment on above: Order Comment: Order Date: 01/27/24Order Info: [id number] - EBGMOrder Info: [id number] - EBEAGOrder Info: [id number] - EBVG Result Comment: Nega tive <36.0 Equivocal 36.0 - 43.9 Positive >43.9 Performed By: #### L 500.3400, L100.0100 #### [facility] [address] [place], [address] EBV NuAg Ab,IgG 128.0 U/mL High 0.0-17.9 [facility] Comment on above: Order Comment: Order Date: 01/27/24Order Info: [id number] - EBGMOrder Info: [id number] - EBEAGOrder Info: [id number] - EBVG Result Comment: Nega tive <18.0 Equivocal 18.0 - 21.9 Positive >21.9 Performed By: #### L 500.3400, L100.0100 #### [facility] [address] [place], [place], [address] INTERPRETATION Comment Normal . [facility] Comment on above: Order Comment: Order Date: 01/27/24Order Info: [id number] - EBGMOrder Info: [id number] - EBEAGOrder Info: [id number] - EBVG Result Comment: EBV Interpretation Chart Luis: Antibody Present + Antibody Absent - Interpretation VCA-IgM VCA-IgG EBNA-IgG No previous infection/ - - - Susceptible Primary infection (new + + - or recent) Past Infection +or- + + See comment below* + - - *Results indicate infection with EBV at some time however cannot predict the timing of the infection since antibodies to EBNA usually develop after primary infection or, alternatively, approximately 5-10% of patients with EBV never develop antibodies to EBNA. Performed By: #### L 500.3400, L100.0100 #### [facility] [address] [place], [place], [address] EBV VCA / EA IgGon EBV EAg AB, IgG <9.0 Normal 0.0-8.9 [facility] Comment on above: Order Comment: Order Date: 01/27/24Order Info: [id number] - EBGMOrder Info: [id number] - EBEAGOrder Info: [id number] - EBVG Result Comment: Nega tive < 9.0 Equivocal 9.0 - 10.9 Positive >10.9 Performed at: [address] [id number] Feeder Operator: Ramsey Geller PhD, Phone: [phone] Performed By: #### L 500.2500, L700.6800, L100.0100 #### [facility] [address] [place], [place], [id number] ENTERIC PATHOGEN PANEL STOOL on 01-28-2024 EP PANEL Order Date: 01/27/24 Order Info: [id number] - CUST Normal Reference Range = Not Detected GI pathogens Pnl Stl REBECCA+probe Nucleic acid amplification test method Not detected for Campylobacter group, Salmonella species, Shigella species, Vibrio Group, Yersinia enterocolitica, EHEC (Shiga Toxin 1, Shiga Toxin 2), Norovirus Gl/Gll, and Rotavirus A. Other common stool pathogens are not detected on this panel include: Aeromonas/Plesiomonas or parasites. Order testing for these organisms separately if suspected. This is an amplified DNA test which makes it both specific and sensitive. CAMPYLOBACTER Not Detected Norovirus Not Detected Rotavirus Not Detected Salmonella Not Detected Shiga Toxin Not Detected Shigella sp. Not Detected VIBRIO Not Detected Yersinia Not Detected Normal [facility] Comment on above: Performed By: #### L 500.3400, L100.0100 #### [facility] [address] [place], [address] CRPon 01-27-2024 C-REACTIVE PROT < 2.90 Normal 0.0-3.0 [facility] Comment on above: Order Comment: Order Date: 01/27/24Order Info: [id number] - CMPOrder Info: [id number] - CRP Result Comment: C-Re active Protein (CRP) provides useful information for the diagnosis, therapy and monitoring of inflammatory processes and associated diseases. For the evaluation of Relative Risk for Cardiovascular Disease, a High Sensitivity CRP (HSCRP) should be ordered. Performed By: #### L 500.3400, L100.0100 #### [facility] [address] [place], [address] Comprehensive Metabolic Prof ilon 01-27-2024 Albumin [Mass/Vol] 3.8 g/dL Normal 3.2-5.0 [facility] Comment on above: Order Comment: Order Date: 01/27/24Order Info: [id number] - CMPOrder Info: [id number] - CRP Performed By: #### L 500.3400, L100.0100 #### [facility] [address] [place], [address] Albumin/Globulin [Mass ratio] 1.0 {ratio} Normal 0.9-2.4 [facility] Comment on above: Order Comment: Order Date: 01/27/24Order Info: [id number] - CMPOrder Info: [id number] - CRP Performed By: #### L 500.3400, L100.0100 #### [facility] [address] [place], [address] ALK P 102 U/L Normal 45-117 [facility] Comment on above: Order Comment: Order Date: 01/27/24Order Info: [id number] - CMPOrder Info: [id number] - CRP Performed By: #### L 500.3400, L100.0100 #### [facility] [address] [place], [address] ALT [Catalytic activity/Vol] 90 U/L High 13-56 [facility] Comment on above: Order Comment: Order Date: 01/27/24Order Info: [id number] - CMPOrder Info: [id number] - CRP Performed By: #### L 500.3400, L100.0100 #### [facility] [address] [place], [address] AST [Catalytic activity/Vol] 40 U/L High 15-37 [facility] Comment on above: Order Comment: Order Date: 01/27/24Order Info: [id number] - CMPOrder Info: [id number] - CRP Performed By: #### L 500.3400, L100.0100 #### [facility] [address] [place], [address] Bilirubin [Mass/Vol] 0.60 mg/dL Normal 0.20-1.00 [facility] Comment on above: Order Comment: Order Date: 01/27/24Order Info: [id number] - CMPOrder Info: [id number] - CRP Result Comment: For patients on eltrombopag therapy, use of Dimension [place] TBIL is not recommended. Performed By: #### L 500.3400, L100.0100 #### [facility] [address] [place], [address] BUN/CRE 8.7 RATIO Low 10-20 [facility] Comment on above: Order Comment: Order Date: 01/27/24Order Info: [id number] - CMPOrder Info: [id number] - CRP Performed By: #### L 500.3400, L100.0100 #### [facility] [address] [place], [address] CA,Total 9.6 mg/dL Normal 8.5-10.1 [facility] Comment on above: Order Comment: Order Date: 01/27/24Order Info: [id number] - CMPOrder Info: [id number] - CRP Performed By: #### L 500.3400, L100.0100 #### [facility] [address] [place], [address] Chloride [Moles/Vol] 105 mmol/L Normal 98-107 [facility] Comment on above: Order Comment: Order Date: 01/27/24Order Info: [id number] - CMPOrder Info: [id number] - CRP Performed By: #### L 500.3400, L100.0100 #### [facility] [address] [place], [address] CO2 [Moles/Vol] 24.0 mmol/L Normal 21.0-32.0 [facility] Comment on above: Order Comment: Order Date: 01/27/24Order Info: [id number] - CMPOrder Info: [id number] - CRP Performed By: #### L 500.3400, L100.0100 #### [facility] [address] [place], [address] Creatinine [Mass/Vol] 0.80 mg/dL Normal 0.55-1.02 [facility] Comment on above: Order Comment: Order Date: 01/27/24Order Info: [id number] - CMPOrder Info: [id number] - CRP Result Comment: The validity of the calculated GFR GFRAA in patients over 70 years has not been determined. Clinical correlation is essential. Performed By: #### L 500.3400, L100.0100 #### [facility] [address] [place], [address] EST GFR - AA 106 mL/min Normal >60 [facility] Comment on above: Order Comment: Order Date: 01/27/24Order Info: [id number] - CMPOrder Info: [id number] - CRP Result Comment: Afri can [place] GFR Calc Performed By: #### L 500.3400, L100.0100 #### [facility] [address] [place], [address] GAP 10 Normal 5-15 [facility] Comment on above: Order Comment: Order Date: 01/27/24Order Info: [id number] - CMPOrder Info: [id number] - CRP Performed By: #### L 500.3400, L100.0100 #### [facility] [address] [place], [address] GFR/1.73 sq M.predicted among non-blacks MDRD (S/P/Bld) [Vol rate/Area] 88 mL/min/{1.73_m2} Normal >60 [facility] Comment on above: Order Comment: Order Date: 01/27/24Order Info: [id number] - CMPOrder Info: [id number] - CRP Result Comment: Non- GFR Calc Performed By: #### L 500.3400, L100.0100 #### [facility] [address] [place], [address] Globulin (S) [Mass/Vol] 4.0 g/dL Normal 2.2-4.2 [facility] Comment on above: Order Comment: Order Date: 01/27/24Order Info: [id number] - CMPOrder Info: [id number] - CRP Performed By: #### L 500.3400, L100.0100 #### [facility] [address] [place], [address] Glucose [Mass/Vol] 89 mg/dL Normal 74-106 [facility] Comment on above: Order Comment: Order Date: 01/27/24Order Info: [id number] - CMPOrder Info: [id number] - CRP Performed By: #### L 500.3400, L100.0100 #### [facility] [address] [place], [address] Potassium [Moles/Vol] 3.8 mmol/L Normal 3.5-5.1 [facility] Comment on above: Order Comment: Order Date: 01/27/24Order Info: [id number] - CMPOrder Info: [id number] - CRP Performed By: #### L 500.3400, L100.0100 #### [facility] [address] [place], [address] Sodium [Moles/Vol] 139 mmol/L Normal 136-145 [facility] Comment on above: Order Comment: Order Date: 01/27/24Order Info: [id number] - CMPOrder Info: [id number] - CRP Performed By: #### L 500.3400, L100.0100 #### [facility] [address] [place], [address] T PROT 7.8 g/dL Normal 6.4-8.2 [facility] Comment on above: Order Comment: Order Date: 01/27/24Order Info: [id number] - CMPOrder Info: [id number] - CRP Performed By: #### L 500.3400, L100.0100 #### [facility] [address] [place], [address] Urea nitrogen [Mass/Vol] 7 mg/dL Normal 7-18 [facility] Comment on above: Order Comment: Order Date: 01/27/24Order Info: [id number] - CMPOrder Info: [id number] - CRP Performed By: #### L 500.3400, L100.0100 #### [facility] [address] [place], [address] Basic Metabolic Profile (BMP )on 01-26-2024 BUN/CRE 11.1 RATIO Normal 10-20 [facility] Comment on above: Performed By: #### L 500.2500, L700.6800, L100.0100 #### [facility] [address] [place], [address] CA,Total 9.6 mg/dL Normal 8.5-10.1 [facility] Comment on above: Performed By: #### L 500.2500, L700.6800, L100.0100 #### [facility] [address] [place], [address] Chloride [Moles/Vol] 108 mmol/L High 98-107 [facility] Comment on above: Performed By: #### L 500.2500, L700.6800, L100.0100 #### [facility] [address] [place], [address] CO2 [Moles/Vol] 25.0 mmol/L Normal 21.0-32.0 [facility] Comment on above: Performed By: #### L 500.2500, L700.6800, L100.0100 #### [facility] [address] [place], [address] Creatinine [Mass/Vol] 0.81 mg/dL Normal 0.55-1.02 [facility] Comment on above: Result Comment: The validity of the calculated GFR GFRAA in patients over 70 years has not been determined. Clinical correlation is essential. Performed By: #### L 500.2500, L700.6800, L100.0100 #### [facility] [address] [place], [address] ECRCL 108.21 ml/min Normal [facility] Comment on above: Performed By: #### L 500.2500, L700.6800, L100.0100 #### [facility] [address] [place], [address] EST GFR - AA 106 mL/min Normal >60 [facility] Comment on above: Result Comment: Afri can [place] GFR Calc Performed By: #### L 500.2500, L700.6800, L100.0100 #### [facility] [address] [place], [address] GAP 6 Normal 5-15 [facility] Comment on above: Performed By: #### L 500.2500, L700.6800, L100.0100 #### [facility] [address] [place], [address] GFR/1.73 sq M.predicted among non-blacks MDRD (S/P/Bld) [Vol rate/Area] 87 mL/min/{1.73_m2} Normal >60 [facility] Comment on above: Result Comment: Non- GFR Calc Performed By: #### L 500.2500, L700.6800, L100.0100 #### [facility] [address] [place], [address] Glucose [Mass/Vol] 98 mg/dL Normal 74-106 [facility] Comment on above: Performed By: #### L 500.2500, L700.6800, L100.0100 #### [facility] [address] [place], [address] Potassium [Moles/Vol] 3.3 mmol/L Low 3.5-5.1 [facility] Comment on above: Performed By: #### L 500.2500, L700.6800, L100.0100 #### [facility] [address] [place], [address] Sodium [Moles/Vol] 139 mmol/L Normal 136-145 [facility] Comment on above: Performed By: #### L 500.2500, L700.6800, L100.0100 #### [facility] [address] [place], [address] Urea nitrogen [Mass/Vol] 9 mg/dL Normal 7-18 [facility] Comment on above: Performed By: #### L 500.2500, L700.6800, L100.0100 #### [facility] [address] [place], [address] CBC W/Diff, Automatedon 09-0 8-2024 Absolute Lymph 2.01 X10 3/uL Normal 0.83-4.51 [facility] Comment on above: Performed By: #### L 500.2500, L700.6800, L100.0100 #### [facility] [address] [place], [address] Absolute Neut 5.8 X10 3/uL Normal 2.0-7.7 [facility] Comment on above: Performed By: #### L 500.2500, L700.6800, L100.0100 #### [facility] [address] [place], [address] Basophils/100 WBC (Bld) 0.3 % Normal 0-1 [facility] Comment on above: Performed By: #### L 500.2500, L700.6800, L100.0100 #### [facility] [address] [place], [address] Eosinophils/100 WBC (Bld) 1.4 % Normal 0-5 [facility] Comment on above: Performed By: #### L 500.2500, L700.6800, L100.0100 #### [facility] [address] [place], [address] Erythrocyte distribution width (RBC) [Ratio] 11.6 % Normal 11.6-14.6 [facility] Comment on above: Performed By: #### L 500.2500, L700.6800, L100.0100 #### [facility] [address] [place], [address] Hematocrit (Bld) [Volume fraction] 40.2 % Normal 37-47 [facility] Comment on above: Performed By: #### L 500.2500, L700.6800, L100.0100 #### [facility] [address] [place], [address] Hemoglobin (Bld) [Mass/Vol] 13.7 g/dL Normal 12.0-15.0 [facility] Comment on above: Performed By: #### L 500.2500, L700.6800, L100.0100 #### [facility] [address] [place], [address] IG% 0.300 Normal 0.0-0.9 [facility] Comment on above: Result Comment: IG% - Immature Granulocytes (promyelocytes, myelocytes and metamyelocytes) > 1% indicates that a LEFT SHIFT is Present. Performed By: #### L 500.2500, L700.6800, L100.0100 #### [facility] [address] [place], [address] Lymphocytes/100 WBC (Bld) 23.1 % Normal 19-41 [facility] Comment on above: Performed By: #### L 500.2500, L700.6800, L100.0100 #### [facility] [address] [place], [address] MCH (RBC) [Entitic mass] 29.7 pg Normal 27.0-32.0 [facility] Comment on above: Performed By: #### L 500.2500, L700.6800, L100.0100 #### [facility] [address] [place], [address] MCHC (RBC) [Mass/Vol] 34.1 g/dL Normal 32-36 [facility] Comment on above: Performed By: #### L 500.2500, L700.6800, L100.0100 #### [facility] [address] [place], [address] MCV (RBC) [Entitic vol] 87.2 fL Normal 81-99 [facility] Comment on above: Performed By: #### L 500.2500, L700.6800, L100.0100 #### [facility] [address] [place], [address] Monocytes/100 WBC (Bld) 8.6 % Normal 0-10 [facility] Comment on above: Performed By: #### L 500.2500, L700.6800, L100.0100 #### [facility] [address] [place], [address] Neutrophils/100 WBC (Bld) 66.3 % Normal 47-70 [facility] Comment on above: Performed By: #### L 500.2500, L700.6800, L100.0100 #### [facility] [address] [place], [address] Nucleated RBC (Bld) [#/Vol] 0 10*3/uL Normal 0-5 [facility] Comment on above: Performed By: #### L 500.2500, L700.6800, L100.0100 #### [facility] [address] [place], [address] Platelet mean volume (Bld) [Entitic vol] 9.6 fL Normal 6.2-12.0 [facility] Comment on above: Performed By: #### L 500.2500, L700.6800, L100.0100 #### [facility] [address] [place], [address] Platelets (Bld) [#/Vol] 306 10*3/uL Normal 150-450 [facility] Comment on above: Performed By: #### L 500.2500, L700.6800, L100.0100 #### [facility] [address] [place], [address] RBC (Bld) [#/Vol] 4.61 10*6/uL Normal 4.2-5.4 [facility] Comment on above: Performed By: #### L 500.2500, L700.6800, L100.0100 #### [facility] [address] [place], [address] RDW SD 36.8 fl Normal 35.1-43.9 [facility] Comment on above: Performed By: #### L 500.2500, L700.6800, L100.0100 #### [facility] [address] [place], [address] WBC (Bld) [#/Vol] 8.7 10*3/uL Normal 4.4-11.0 [facility] Comment on above: Performed By: #### L 500.2500, L700.6800, L100.0100 #### [facility] [address] [place], [address] Emergency Department Summary on 01-26-2024 Emergency Department Summary [facility] Medical Records Department [address] [place] [address] Emergency Department Summary 01/26/24 MR#: [id number] Acct: [id number] Name: MOSHE SEVERINO Rep #: [id number] : 1990 34 From: Jerrell Zelaya DO PCP: Dr. Jerrell Segundo MD Status:DEP ER Location: ED HPI History of Present Illness Chief Complaint: Nausea/Vomiting Informant: patient Onset/Context/Timing Onset: Days (5) Context: Sudden Onset Timing: Continuous Quality: Cramping, dull Location: Epigastric Worsened by: Nothing Relieved by: Promethazine Narrative Narrative: Patient presents with nausea and vomiting that has been constant for the last 5 days. Patient states it began rather suddenly. Patient states it comes and goes. Patient states that she was able to keep down some rice yesterday after taking some Phenergan. Patient states that her nausea and vomiting returned again today. Patient states she has been unable to keep anything down today. Patient states that her emesis is just stomach contents. Patient denies any hematemesis or coffee- ground emesis. Patient does admit to some diarrhea. Patient denies any melena or hematochezia. Patient denies any urinary complaints. Patient denies any fevers but admits to some subjective chills. PFSH PFSH Medical History Acute sinusitis, unspecified Diarrhea Fatigue Home Medications ???Medication ???Instructions ???Recorded ???Last Taken ???Type escitalopram oxalate 10 mg tablet 15 mg PO DAILY 12/18/23 Unknown History ondansetron 4 mg disintegrating 4 mg PO Q8H PRN PRN Nausea #10 tabs 01/23/24 Unknown Rx tablet promethazine 25 mg tablet 25 mg PO Q6H PRN PRN Nausea #10 01/26/24 Unknown Rx TABLETS Allergy/AdvReac Type Severity Reaction Status Date / Time No Known Allergies Allergy Verified 01/26/24 09:41 Family History (Updated 12/18/23 @ 11:25 by Katelin Lazar) Aunt Breast cancer Surgical History no surgical history no surgical history Social History adopted: No household members: spouse and children housing: house number of children: 2 current occupational status: employed 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[employer] current occupational exposures/hazards: No pets and animals: Yes pets and animals: cat(s) and dog(s) history of recent travel: No sexually active: Yes Smoking Status: Never smoker alcohol intake: current alcohol intake frequency: holidays/special occasions only Alcohol type: hard liquor substance use type: marijuana well-balanced diet: about half the time caffeine: Yes Type: coffee Number of servings: 2 eating out: rarely or never giancarlo/jainism: Sikh seatbelt use: always do you feel safe at home: Yes 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, [employer] ROS ROS ED Constitutional Constitutional ED: Denies chills or fever(s) Eyes Eyes: Denies blurry vision or change in vision ENT ENT ED: Denies rhinorrhea or sore throat Cardiovascular Cardiovascular: Denies chest pain or palpitations Respiratory/Chest Respiratory/Chest: Denies cough or dyspnea Gastrointestinal Gastrointestinal: Reports abdominal pain, diarrhea, nausea and vomiting; Denies melena Genitourinary Genitourinary ED: Denies dysuria or hematuria Musculoskeletal Musculoskeletal: Denies back pain or neck pain Integumentary Denies abscess or rash Neurologic Neurologic: Reports headache(s); Denies weakness Allergic/Immunologic Allergic/Immunologic ED: Denies mouth swelling or urticaria EXAM Physical Exam Const Vital Signs: 01/26/24 09:39 01/26/24 11:39 Temperature 97.2 F L Temperature Source Temporal Pulse Rate 74 64 Respiratory Rate 16 14 Blood Pressure 136/98 H 125/82 H Blood Pressure Mean 110 96 Pulse Ox 96 98 Oxygen Delivery Method Room Air Room Air Positive well nourished and well developed General Appearance ED: well developed and NAD HEENT Reports moist mucous membranes Neck supple and no JVD Resp normal respiratory effort and clear to auscultation bilaterally Cardio regular rate and regular rhythm GI non-distended Palpation: soft and tender epigastric; Negative for guarding or rebound tenderness present Neuro oriented x3, CN's II-XII intact bilaterally and no sensory deficits noted Sensorium / Orientation: alert Motor Exam: strength 5/5 throughout Psych mental status grossly normal MDM MDM MDM Narrative Medical decision making narrative: Differential diagnosis includes viral illness, gastroenteritis, cannabis hyperemesis syndrome, pancreatitis, dehydration, and electrolyte abnormality. CBC will be obtained to assess for leukocytosis and anemia. Basic metabolic profile will be o (more content not included)... Normal [facility] Lipaseon 01-26-2024 Lipase [Catalytic activity/Vol] 33 U/L Normal 13-75 [facility] Comment on above: Result Comment: Yves dee note: LIPASE revised reference range effective 22. New Lipase methodology. Expected to produce lower values than the previous assay method. NEW Reference Range: 13 - 75 U/L Performed By: #### L 501.2450 #### [facility] [address] [place], [address] Liver Profileon 01-26-2024 Albumin [Mass/Vol] 3.7 g/dL Normal 3.2-5.0 [facility] Comment on above: Performed By: #### L 500.2500, L700.6800, L100.0100 #### [facility] [address] [place], [address] ALK P 100 U/L Normal 45-117 [facility] Comment on above: Performed By: #### L 500.2500, L700.6800, L100.0100 #### [facility] [address] [place], [address] ALT [Catalytic activity/Vol] 88 U/L High 13-56 [facility] Comment on above: Performed By: #### L 500.2500, L700.6800, L100.0100 #### [facility] [address] [place], [address] AST [Catalytic activity/Vol] 52 U/L High 15-37 [facility] Comment on above: Performed By: #### L 500.2500, L700.6800, L100.0100 #### [facility] [address] [place], [address] Bilirubin [Mass/Vol] 0.70 mg/dL Normal 0.20-1.00 [facility] Comment on above: Result Comment: For patients on eltrombopag therapy, use of Dimension [place] TBIL is not recommended. Performed By: #### L 500.2500, L700.6800, L100.0100 #### [facility] [address] [place], [address] Bilirubin.direct [Mass/Vol] 0.19 mg/dL Normal 0.00-0.30 [facility] Comment on above: Performed By: #### L 500.2500, L700.6800, L100.0100 #### [facility] [address] [place], [address] Globulin (S) [Mass/Vol] 3.7 g/dL Normal 2.2-4.2 [facility] Comment on above: Performed By: #### L 500.2500, L700.6800, L100.0100 #### [facility] [address] [place], [address] T PROT 7.4 g/dL Normal 6.4-8.2 [facility] Comment on above: Performed By: #### L 500.2500, L700.6800, L100.0100 #### [facility] [address] [place], [address] ,Serum,hCG Quali.on 01-26-2024 HCG, SERUM QUAL Negative Normal [facility] Comment on above: Performed By: #### L 500.2500, L700.6800, L100.0100 #### [facility] [address] [place], [address] Urinalysis, Completeon 01-25 AMORPHOUS 1+ Normal [facility] Comment on above: Order Comment: INEZ CTOR TO SPECIFY Performed By: #### L 500.2500, L700.6800, L100.0100 #### [facility] [address] [place], [address] BACTERIA 2+ /hpf Normal None Seen [facility] Comment on above: Order Comment: INEZ CTOR TO SPECIFY Performed By: #### L 500.2500, L700.6800, L100.0100 #### [facility] [address] [place], [address] EPI,SQUAMOUS 0-5 SEEN Normal 5-10 [facility] Comment on above: Order Comment: INEZ CTOR TO SPECIFY Performed By: #### L 500.2500, L700.6800, L100.0100 #### [facility] [address] [place], [address] Mucus Ql (Urine sed) 1+ /hpf Normal [facility] Comment on above: Order Comment: COLLE CTOR TO SPECIFY Performed By: #### L 500.2500, L700.6800, L100.0100 #### [facility] [address] [place], [address] RBC 0-5 SEEN Normal 0-5 [facility] Comment on above: Order Comment: COLLE CTOR TO SPECIFY Performed By: #### L 500.2500, L700.6800, L100.0100 #### [facility] [address] [place], [address] WBC 0-5 SEEN Normal 0-5 [facility] Comment on above: Order Comment: COLLE CTOR TO SPECIFY Performed By: #### L 500.2500, L700.6800, L100.0100 #### [facility] [address] [place], [address] CBC W/Diff, Automatedon 09-0 5-2024 Absolute Lymph 1.68 X10 3/uL Normal 0.83-4.51 [facility] Comment on above: Performed By: #### L 500.3400, L100.0100 #### [facility] [address] [place], [address] Absolute Neut 9.5 X10 3/uL High 2.0-7.7 [facility] Comment on above: Performed By: #### L 500.3400, L100.0100 #### [facility] [address] [place], [address] Basophils/100 WBC (Bld) 0.3 % Normal 0-1 [facility] Comment on above: Performed By: #### L 500.3400, L100.0100 #### [facility] [address] [place], [address] Eosinophils/100 WBC (Bld) 0.5 % Normal 0-5 [facility] Comment on above: Performed By: #### L 500.3400, L100.0100 #### [facility] [address] [place], [address] Erythrocyte distribution width (RBC) [Ratio] 11.9 % Normal 11.6-14.6 [facility] Comment on above: Performed By: #### L 500.3400, L100.0100 #### [facility] [address] [place], [address] Hematocrit (Bld) [Volume fraction] 42.1 % Normal 37-47 [facility] Comment on above: Performed By: #### L 500.3400, L100.0100 #### [facility] [address] [place], [address] Hemoglobin (Bld) [Mass/Vol] 14.2 g/dL Normal 12.0-15.0 [facility] Comment on above: Performed By: #### L 500.3400, L100.0100 #### [facility] [address] [place], [address] IG% 0.300 Normal 0.0-0.9 [facility] Comment on above: Result Comment: IG% - Immature Granulocytes (promyelocytes, myelocytes and metamyelocytes) > 1% indicates that a LEFT SHIFT is Present. Performed By: #### L 500.3400, L100.0100 #### [facility] [address] [place], [address] Lymphocytes/100 WBC (Bld) 14.2 % Low 19-41 [facility] Comment on above: Performed By: #### L 500.3400, L100.0100 #### [facility] [address] [place], [address] MCH (RBC) [Entitic mass] 29.8 pg Normal 27.0-32.0 [facility] Comment on above: Performed By: #### L 500.3400, L100.0100 #### [facility] [address] [place], [address] MCHC (RBC) [Mass/Vol] 33.7 g/dL Normal 32-36 [facility] Comment on above: Performed By: #### L 500.3400, L100.0100 #### [facility] [address] [place], [address] MCV (RBC) [Entitic vol] 88.3 fL Normal 81-99 [facility] Comment on above: Performed By: #### L 500.3400, L100.0100 #### [facility] [address] [place], [address] Monocytes/100 WBC (Bld) 4.6 % Normal 0-10 [facility] Comment on above: Performed By: #### L 500.3400, L100.0100 #### [facility] [address] [place], [address] Neutrophils/100 WBC (Bld) 80.1 % High 47-70 [facility] Comment on above: Performed By: #### L 500.3400, L100.0100 #### [facility] [address] [place], [address] Nucleated RBC (Bld) [#/Vol] 0 10*3/uL Normal 0-5 [facility] Comment on above: Performed By: #### L 500.3400, L100.0100 #### [facility] [address] [place], [address] Platelet mean volume (Bld) [Entitic vol] 9.6 fL Normal 6.2-12.0 [facility] Comment on above: Performed By: #### L 500.3400, L100.0100 #### [facility] [address] [place], [address] Platelets (Bld) [#/Vol] 312 10*3/uL Normal 150-450 [facility] Comment on above: Performed By: #### L 500.3400, L100.0100 #### [facility] [address] [place], [address] RBC (Bld) [#/Vol] 4.77 10*6/uL Normal 4.2-5.4 [facility] Comment on above: Performed By: #### L 500.3400, L100.0100 #### [facility] [address] [place], [address] RDW SD 38.3 fl Normal 35.1-43.9 [facility] Comment on above: Performed By: #### L 500.3400, L100.0100 #### [facility] [address] [place], [address] WBC (Bld) [#/Vol] 11.8 10*3/uL High 4.4-11.0 [facility] Comment on above: Performed By: #### L 500.3400, L100.0100 #### [facility] [address] [place], [address] Comprehensive Metabolic Prof [facility] 01-23-2024 Albumin [Mass/Vol] 3.8 g/dL Normal 3.2-5.0 [facility] Comment on above: Performed By: #### L 500.3400, L100.0100 #### [facility] [address] [place], [address] Albumin/Globulin [Mass ratio] 1.0 {ratio} Normal 0.9-2.4 [facility] Comment on above: Performed By: #### L 500.3400, L100.0100 #### [facility] [address] [place], [address] ALK P 106 U/L Normal 45-117 [facility] Comment on above: Performed By: #### L 500.3400, L100.0100 #### [facility] [address] [place], [address] ALT [Catalytic activity/Vol] 26 U/L Normal 13-56 [facility] Comment on above: Performed By: #### L 500.3400, L100.0100 #### [facility] [address] [place], [address] AST [Catalytic activity/Vol] 18 U/L Normal 15-37 [facility] Comment on above: Performed By: #### L 500.3400, L100.0100 #### [facility] [address] [place], [address] Bilirubin [Mass/Vol] 0.60 mg/dL Normal 0.20-1.00 [facility] Comment on above: Result Comment: For patients on eltrombopag therapy, use of Dimension [place] TBIL is not recommended. Performed By: #### L 500.3400, L100.0100 #### [facility] [address] [place], [address] BUN/CRE 11.7 RATIO Normal 10-20 [facility] Comment on above: Performed By: #### L 500.3400, L100.0100 #### [facility] [address] [place], [address] CA,Total 9.6 mg/dL Normal 8.5-10.1 [facility] Comment on above: Performed By: #### L 500.3400, L100.0100 #### [facility] [address] [place], [address] Chloride [Moles/Vol] 106 mmol/L Normal 98-107 [facility] Comment on above: Performed By: #### L 500.3400, L100.0100 #### [facility] [address] [place], [address] CO2 [Moles/Vol] 24.0 mmol/L Normal 21.0-32.0 [facility] Comment on above: Performed By: #### L 500.3400, L100.0100 #### [facility] [address] [place], [address] Creatinine [Mass/Vol] 0.77 mg/dL Normal 0.55-1.02 [facility] Comment on above: Result Comment: The validity of the calculated GFR GFRAA in patients over 70 years has not been determined. Clinical correlation is essential. Performed By: #### L 500.3400, L100.0100 #### [facility] [address] [place], [address] ECRCL 114.82 ml/min Normal [facility] Comment on above: Performed By: #### L 500.3400, L100.0100 #### [facility] [address] [place], [address] EST GFR - AA 112 mL/min Normal >60 [facility] Comment on above: Result Comment: Afri can [place] GFR Calc Performed By: #### L 500.3400, L100.0100 #### [facility] [address] [place], [address] GAP 8 Normal 5-15 [facility] Comment on above: Performed By: #### L 500.3400, L100.0100 #### [facility] [address] [place], [address] GFR/1.73 sq M.predicted among non-blacks MDRD (S/P/Bld) [Vol rate/Area] 93 mL/min/{1.73_m2} Normal >60 [facility] Comment on above: Result Comment: Non- GFR Calc Performed By: #### L 500.3400, L100.0100 #### [facility] [address] [place], [address] Globulin (S) [Mass/Vol] 4.0 g/dL Normal 2.2-4.2 [facility] Comment on above: Performed By: #### L 500.3400, L100.0100 #### [facility] [address] [place], [address] Glucose [Mass/Vol] 90 mg/dL Normal 74-106 [facility] Comment on above: Performed By: #### L 500.3400, L100.0100 #### [facility] [address] [place], [address] Potassium [Moles/Vol] 3.3 mmol/L Low 3.5-5.1 [facility] Comment on above: Performed By: #### L 500.3400, L100.0100 #### [facility] [address] [place], [address] Sodium [Moles/Vol] 138 mmol/L Normal 136-145 [facility] Comment on above: Performed By: #### L 500.3400, L100.0100 #### [facility] [address] [place], [address] T PROT 7.8 g/dL Normal 6.4-8.2 [facility] Comment on above: Performed By: #### L 500.3400, L100.0100 #### [facility] [address] [place], [address] Urea nitrogen [Mass/Vol] 9 mg/dL Normal 7-18 [facility] Comment on above: Performed By: #### L 500.3400, L100.0100 #### [facility] [address] [place], [address] Emergency Department Summary on 01-23-2024 Emergency Department Summary [facility] Medical Records Department [address] [place] [address] Emergency Department Summary 01/23/24 MR#: [id number] Acct: [id number] Name: MOSHE SEVERINO Rep #: [id number] : 1990 34 From: [place] Silveira [employer] PCP: Dr. Jerrell Segundo MD Status:DEP ER Location: ED HPI History of Present Illness Chief Complaint: Nausea/Vomiting/Diarrh ea Narrative Narrative: Patient is a 34-year-old female with no significant medical history other than anxiety depression who [facility] for 2 days of generalized malaise, nausea and vomiting. Patient states that this woke her up around 440 in the morning yesterday. Patient states that she has been having ongoing nausea and vomiting, decreased oral intake. Patient is only had a small amount of diarrhea. She denies any specific pain. Patient states that this did happen last year, she had come in for nausea medicine and fluids. She denies any bowel or bladder cons, [place] any blood in her stool or vomit. [facility] Medical History Acute sinusitis, unspecified Diarrhea Fatigue Home Medications ???Medication ???Instructions ???Recorded ???Last Taken ???Type escitalopram oxalate 10 mg tablet 15 mg PO DAILY 12/18/23 Unknown History ondansetron 4 mg disintegrating 4 mg PO Q8H PRN PRN Nausea #10 tabs 01/23/24 Unknown Rx tablet Allergy/AdvReac Type Severity Reaction Status Date / Time No Known Allergies Allergy Verified 01/23/24 12:55 Family History (Updated 12/18/23 @ 11:25 by Katelin Lazar) Aunt Breast cancer Social History (Updated 12/18/23 @ 11:29 by Katelin Lazar) adopted: No household members: spouse and children housing: house number of children: 2 current occupational status: employed 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[employer] current occupational exposures/hazards: No pets and animals: Yes pets and animals: cat(s) and dog(s) history of recent travel: No sexually active: Yes Smoking Status: Never smoker alcohol intake: current alcohol intake frequency: holidays/special occasions only Alcohol type: hard liquor substance use type: marijuana well-balanced diet: about half the time caffeine: Yes Type: coffee Number of servings: 2 eating out: rarely or never giancarlo/jainism: Sikh seatbelt use: always do you feel safe at home: Yes 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, [employer] ROS ROS ED ROS Narrative Constitutional: Negative for fever, chills, weight loss, weakness Eyes: Negative for vision loss, vision change, double vision ENT: Negative for any sore throat, ear pain, congestion Cardiovascular: Negative for any chest pain, tightness, palpitations Respiratory: Negative for any cough, sputum production, hemoptysis, dyspnea, dyspnea on exertion, orthopnea Gastrointestinal: Negative for any abdominal pain, constipation, blood in stool, blood in vomit. Positive for nausea, vomiting, diarrhea : Negative for any urinary frequency, dysuria, retention, blood in urine Muscle skeletal: Negative for any neck pain, back pain Neurological: Negative for any headache, syncope, dizziness Skin: Negative for any rashes, itching, abrasions, lacerations Psychiatric: Negative for any depression, anxiety, stress, suicidal ideation, homicidal ideation Hematologic: Negative for any excessive bruising, easy bleeding EXAM Physical Exam Narrative Exam Narrative: Vital signs reviewed. HEET: Head normocephalic atraumatic, TMs clear bilaterally. Posterior pharynx is clear, dry mucous membranes. Nares clear bilaterally. Neck: Supple with no lymphadenopathy or tenderness. No signs of meningismus. Cardiac: Regular rate and rhythm no murmurs gallops or rubs, equal peripheral pulses bilaterally. Respiratory: Lungs clear to auscultation bilaterally. No chest tenderness. Abdomen: Soft, nontender, nondistended. No abdominal bruit or pulsatile masses. No hepatosplenomegaly Extremities: No peripheral edema, no signs of gross trauma or deformity. Active full range of motion of all extremities. Neuro: Cranial nerves II through XII intact, no focal neurological deficits. Skin: Clean dry and intact with no rash, purpura, petechiae, vesicles or pustules. Backs/flank: No CVA tenderness, no midline spinal tenderness, no deformity. Psych: Normal mood and affect. No SI, HI or acute psychosis. Const Vital Signs: 01/23/24 12:55 01/23/24 14:55 Temperature 99 F Temperature Source Temporal Pulse Rate 84 73 Respiratory Rate 14 16 Blood Pressure 128/86 H 117/74 Blood Pressure Mean 100 88 Pulse Ox 98 98 Oxygen Delivery Method Room Air Room Air Positive well nourished and well developed General Appearance ED: well developed Physical Exam Const Vital Signs: (more content not included)... Normal [facility] Lipaseon 01-23-2024 Lipase [Catalytic activity/Vol] 38 U/L Normal 13-75 [facility] Comment on above: Result Comment: Yves dee note: LIPASE revised reference range effective 22. New Lipase methodology. Expected to produce lower values than the previous assay method. NEW Reference Range: 13 - 75 U/L Performed By: #### L 500.3400, L100.0100 #### [facility] [address] [place], [address] ,Serum,hCG Quali.on 01-23-2024 HCG, SERUM QUAL Negative Normal [facility] Comment on above: Performed By: #### L 500.3400, L100.0100 #### [facility] [address] [place], [address] Urinalysis, Completeon 01-22 BACTERIA 1+ /hpf Normal None Seen [facility] Comment on above: Order Comment: INEZ CTOR TO SPECIFY Performed By: #### L 500.2500, L700.6800, L100.0100 #### [facility] [address] [place], [address] EPI,SQUAMOUS 0-5 SEEN Normal 5-10 [facility] Comment on above: Order Comment: INEZ CTOR TO SPECIFY Performed By: #### L 500.2500, L700.6800, L100.0100 #### [facility] [address] [place], [address] Mucus Ql (Urine sed) 2+ /hpf Normal [facility] Comment on above: Order Comment: INEZ CTOR TO SPECIFY Performed By: #### L 500.2500, L700.6800, L100.0100 #### [facility] [address] [place], [address] RBC 0-5 SEEN Normal 0-5 [facility] Comment on above: Order Comment: INEZ CTOR TO SPECIFY Performed By: #### L 500.2500, L700.6800, L100.0100 #### [facility] [address] [place], [address] WBC 0 SEEN Normal 0-5 [facility] Comment on above: Order Comment: INEZ CTOR TO SPECIFY Performed By: #### L 500.2500, L700.6800, L100.0100 #### [facility] [address] [place], [address] BI US BREAST LIMITED RIGHTon 12-24-2023 BI US BREAST LIMITED RIGHT This is a summary report. The complete report is available in the patient's medical record. If you cannot access the medical record, please contact the sending organization for a detailed fax or copy. [facility] 1990 [id number] Exam Date/Time: 12/24/2023 10:09 Procedure: BI US [...] images: BB's = Nipples; skin lesions Open [place] = Palpable Line = Scar TISSUE DENSITY: [...] Electronically Signed Date/Time: 12/24/2023 10:14 AM EDT [facility] DBT Breast - bilateral diagn osticon 12-24-2023 Patient Name: MOSHE SEVERINO : 1990 [facility]#: [id number] Exam Date/Time: 12/24/2023 09:38 Procedure: BI MAMMOGRAM [...] images: BB's = Nipples; skin lesions Open [place] = Palpable Line = Scar TISSUE DENSITY: [...] tenderness demonstrates no cystic or solid lesion. [facility] [employer] Dima Richardson MD - 12/24/2023 Patient Name: MOSHE SEVERINO : 1990 [facility]#: [id number] Exam Date/Time: 12/24/2023 09:38 Procedure: BI MAMMOGRAM [...] images: BB's = Nipples; skin lesions [place] = Palpable Line = Scar TISSUE DENSITY: [...] Electronically Signed Date/Time: 12/24/2023 10:14 AM EDT [facility] Radiology Study observation (narrative) [facility] He alth No Panel Informationon 12-23 No abnormality ASSESSMENT: [...] Electronically Signed Date/Time: 12/24/2023 10:14 AM EDT [employer] No Panel InformationOrdered By: Dima Richardson on 12-24-2023 Addepar Phone: US Breast - right limitedon 12-24-2023 [facility] 1990 [id number] Exam Date/Time: 12/24/2023 10:09 Procedure: BI US [...] images: BB's = Nipples; skin lesions [place] = Palpable Line = Scar TISSUE DENSITY: [...] tenderness demonstrates no cystic or solid lesion. [employer] Dima Richardson MD - 12/24/2023 Patient Name: MOSHE SEVERINO : 1990 [facility]#: [id number] Exam Date/Time: 12/24/2023 10:09 Procedure: BI US [...] images: BB's = Nipples; skin lesions [place] = Palpable Line = Scar TISSUE DENSITY: [...] Electronically Signed Date/Time: 12/24/2023 10:14 AM EDT [facility] Radiology Study observation (narrative) [facility] alth PAP IG HPV APTIMA 1618,45on 08-05-2024 ADEQ Comment Normal . [facility] Comment on above: Order Comment: Speci men Comment: [id number] Comment: Source.............CervixSpecimen Comment: LMP / Prev Treat...[id number] Comment: No. of containers..01 ThinPrep Vial Result Comment: Sati sfactory for evaluation. Endocervical and/or squamous metaplastic cells (endocervical component) are present. Performed By: #### L 500.3400, L100.0100 #### [facility] [address] [place], [address] COMM . Normal . [facility] Comment on above: Order Comment: Speci men Comment: [id number] Comment: Source.............CervixSpecimen Comment: LMP / Prev Treat...[id number] Comment: No. of containers..01 ThinPrep Vial Performed By: #### L 500.3400, L100.0100 #### [facility] [address] [place], [address] COMMENT Comment Normal . [facility] Comment on above: Order Comment: Speci men Comment: [id number] Comment: Source.............CervixSpecimen Comment: LMP / Prev Treat...[id number] Comment: No. of containers..01 ThinPrep Vial Result Comment: This liquid based ThinPrep(R) pap test was screened with the use of an image guided system. Performed By: #### L 500.3400, L100.0100 #### [facility] [address] [place], [place], [address] DIAG Comment Normal . [facility] Comment on above: Order Comment: Speci men Comment: [id number] Comment: Source.............CervixSpecimen Comment: LMP / Prev Treat...[id number] Comment: No. of containers..01 ThinPrep Vial Result Comment: NEGA TIVE FOR INTRAEPITHELIAL LESION OR MALIGNANCY. Performed By: #### L 500.3400, L100.0100 #### [facility] [address] [place], [place], [address] HPV APTIMA, HR Negative Normal Negative [facility] Comment on above: Order Comment: Speci men Comment: [id number] Comment: Source.............CervixSpecimen Comment: LMP / Prev Treat...[id number] Comment: No. of containers..01 ThinPrep Vial Result Comment: This nucleic acid amplification test detects fourteen high- risk HPV types (16,18,31,33,35,39,45,51,52,56,58,59,66,68) without differentiation. Performed By: #### L 500.3400, L100.0100 #### [facility] [address] [place], [place], [address] HPV Kera Rfx Comment Normal . [facility] Comment on above: Order Comment: Speci men Comment: [id number] Comment: Source.............CervixSpecimen Comment: LMP / Prev Treat...[id number] Comment: No. of containers..01 ThinPrep Vial Result Comment: Crit caio not met, HPV Genotype not performed. Performed at: [facility] Cyto Histo [address] [place], [place] [id number] Feeder Operator: Eliecer Gomez MD, Phone: [phone] Performed at: [address] [id number] Feeder Operator: Danni Velasquez MD, Phone: [phone] Performed at: =[address] [id number] Feeder Operator: Danni Velasquez MD, Phone: [phone] Performed By: #### L 500.3400, L100.0100 #### [facility] [address] [place], [place], [address] PAPSMR Comment Normal . [facility] Comment on above: Order Comment: Speci men Comment: [id number] Comment: Source.............CervixSpecimen Comment: LMP / Prev Treat...[id number] Comment: No. of containers..01 ThinPrep Vial Result Comment: The Pap smear is a screening test designed to aid in the detection of premalignant and malignant conditions of the uterine cervix. It is not a diagnostic procedure and should not be used as the sole means of detecting cervical cancer. Both false-positive and false-negative reports do occur. Performed By: #### L 500.3400, L100.0100 #### [facility] [address] [place], [address] PERFORM Comment Normal . [facility] Comment on above: Order Comment: Speci men Comment: [id number] Comment: Source.............CervixSpecimen Comment: LMP / Prev Treat...[id number] Comment: No. of containers..01 ThinPrep Vial Result Comment: Zenaida Huitron, Manager Target (ASCP) Performed By: #### L 500.3400, L100.0100 #### [facility] [address] [place], [place], [address] Internal Communications Manager Office Visit Reporton 12-18-2023 Internal Communications Manager Office Visit Report [facility] 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 Accompanied by: Self Is patient in pain?: No Feel stressed/tense/nervous /anxious/difficulty sleeping: to some extent Allergies No Known Allergies Allergy (Verified 12/18/23 11:23) Medications ???Medication ???Instructions ???Recorded ???Confirmed ???Type escitalopram oxalate 10 mg tablet 15 mg PO DAILY 12/18/23 12/18/23 History Is last menstrual period known: Yes Last Menstrual Period: 11/27/23 Patient : No : No Control Method[facility] History Acute sinusitis, unspecified Diarrhea Fatigue Family History (Updated 12/18/23 @ 11:25 by Katelin Lazar) Aunt Breast cancer Social History (Updated 12/18/23 @ 11:29 by Katelin Lazar) adopted: No household members: spouse and children housing: house number of children: 2 current occupational status: employed 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[employer] current occupational exposures/hazards: No pets and animals: Yes pets and animals: cat(s) and dog(s) history of recent travel: No sexually active: Yes Smoking Status: Never smoker alcohol intake: current alcohol intake frequency: holidays/special occasions only Alcohol type: hard liquor substance use type: marijuana well-balanced diet: about half the time caffeine: Yes Type: coffee Number of servings: 2 eating out: rarely or never giancarlo/jainism: Sikh seatbelt use: always do you feel safe at home: Yes 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, [employer] History 3 Elective abortions Hx Para 2 Spontaneous abortions 1 Hx # Term Pregnancies 2 Ectopic pregnancies Hx # Pregnancies Multiple births # of living children 2 Past Pregnancies Del. Date Name GA/Weeks Outcome Route Bth Weight Gen Labor Lgth Anesthesia Del Locatn Provider FOB 01/22/18 Perla live - full term 7 24 hrs [facility] 03/03/19 Ebonie live - full term 7.5 12 hrs [facility] HPI Encounter for routine gynecological examination Details: MOSHE SEVERINO is a 33 year old who presents for annual exam. She reports she does have some urinary incontinence with pelvic floor weakness. She is interested in a pelvic floor physical therapy referral. Right sided breast tenderness;. Has been going on for about a month and a half. Aunt and grandmother with history of breast cancer. Last PAP: 01/2020 History of abnormal PAP: None Last mammogram: None History of abnormal mammogram: None Colon cancer screening: None Other preventative health care screenings: Primary Care Doctor: Dr. Jerrell Arias. Female Reproductive History Last Menstrual Period: 11/27/23 Cycle Length: 21-35 Bleeding Duration: 6 Questions: metorrhagia: No, sexually active: Yes (condoms), dyspareunia: No and PCB: No ROS Const Constitutional: Denies chills, fatigue, fever(s), headache(s) or weight loss Eyes Eyes: Denies change in vision ENT ENT: Denies dizziness Resp Resp: Denies cough GI GI: Denies abdominal pain, constipation or nausea : Denies difficulty voiding, dysuria, hematuria, nipple discharge, pelvic pain, prolapse symptoms, urinary incontinence, vaginal discharge, vaginal dryness, vaginal odor or vaginal pruritus Skin Skin/Breast: Reports breast pain (see HPI); Denies alopecia, rash or nipple discharge Neuro Neuro: Denies dizziness Psych Psych: Denies anxiety or depression Endo Endo: Denies cold intolerance, excessive sweating or heat intolerance Exam Const General: cooperative, healthy appearing, comfortable, no acute distress, well groomed and well hydrated Nutritional Appearance: well nourished Orientation: alert, awake and oriented x3 HENMT Head: normal to inspection and normocephalic Ears: hearing grossly normal bilaterally and external ears normal Nose: external nose normal Face and sinus: normal facial exam Eyes General: appearance normal, both eyes and all related structures Neck Neck: normal visual inspection, full ROM and no lymphadenopathy Thyroid: thyroid normal Chest Chest palpation inspection: normal inspection of the chest Breast inspection: normal inspe (more content not included)... Normal [facility] Basophil percentageOrdered B y: Dr. Segundo on 07-03-2022 Cholesterol [Mass/Vol] 150 mg/dL <200 [facility] Comment on above: <200 mg/dL Desirable 200-240 mg/dL Borderline >240 mg/dL High Risk Triglyceride [Mass/Vol] 83 mg/dL <199 [facility] Comment on above: The drugs N-Acetylcy steine and Metamizole may falsely depress this assay.Serum Triglycerides Reference Interval Normal <150 mg/dL Borderline high 150 - 199 mg/dL High 200 - 499 mg/dL Very High > or = 500 mg/dL No Panel InformationOrdered By: Dr. Segundo on 07-03-2022 Thyroid Stimulating Hormone (TSH) 0.94 uIU/mL 0.358-3.74 [facility] Serum or plasma cholesterol in HDL measurement (mass/volume)Ordered By: Dr. Segundo on 07-03-2022 Cholesterol in HDL [Mass/Vol] 48 mg/dL >40 [facility] Comment on above: The drugs N-Acetylcy steine and Metamizole may falsely depress this assay. Reference Range HDL <40 mg/dL Low HDL Cholesterol HDL >or= 60 mg/dL High HDL Cholesterol Serum or plasma cholesterol in VLDL measurement (mass/volume)Ordered By: Dr. Segundo on 07-03-2022 Cholesterol in VLDL [Mass/Vol] 17 mg/dL 5-40 [facility] Serum or plasma low density lipoprotein (LDL) cholesterol measurement (mass/volume)Ordered By: Dr. Segundo on 07-03-2022 Cholesterol in LDL [Mass/Vol] 85 mg/dL 0-130 [facility] Absolute lymphocyte countOrd ered By: Dr. Zelaya on 06-27-2022 Lymphocytes Auto (Unsp spec) [#/Vol] 1.14 10*3/uL 0.83-4.51 [facility] Basophil percentageOrdered B y: Dr. Zelaya on 06-27-2022 Basophil percentage 0-5 SEEN /hpf 0-5 [facility] Basophils/100 WBC (Bld) 0.1 % 0-1 [facility] Bilirubin [Mass/Vol] 0.80 mg/dL 0.20-1.00 [facility] Comment on above: For patients on eltr ombopag therapy, use of Dimension [place] TBIL is not recommended. Chloride [Moles/Vol] 106 mmol/L 98-107 [facility] Eosinophils/100 WBC (Bld) 0.0 % 0-5 [facility] Glucose [Mass/Vol] 137 mg/dL 74-106 [facility] Comment on above: Fasting Glucose resu lt greater than or equal to 126 mg/dL suggests DIABETES MELLITUS per A.D.A. criteria. Neutrophils (Bld) [#/Vol] 14.0 10*3/uL 2.0-7.7 [facility] Neutrophils/100 WBC (Bld) 90.1 % 47-70 [facility] Potassium [Moles/Vol] 3.5 mmol/L 3.5-5.1 [facility] Protein [Mass/Vol] 8.1 g/dL 6.4-8.2 [facility] Sodium [Moles/Vol] 138 mmol/L 136-145 [facility] WBC (Bld) [#/Vol] 15.5 10*3/uL 4.4-11.0 [facility] Beta hCG serum qualOrdered B y: Dr. Zelaya on 06-27-2022 Beta HCG ( test) Ql Negative [facility] Bilirubin Test strip Ql (U)O rdered By: Dr. Zelaya on 06-27-2022 Bilirubin Ql (U) Negative Negative [facility] Blood erythrocytes count (nu mber/volume)Ordered By: Dr. Zelaya on 06-27-2022 RBC (Bld) [#/Vol] 4.81 10*6/uL 4.2-5.4 [facility] Blood hemoglobin measurement (mass/volume)Ordered By: Dr. Zelaya on 06-27-2022 Hemoglobin (Bld) [Mass/Vol] 14.6 g/dL 12.0-15.0 [facility] Blood lymphocytes/100 leukoc ytesOrdered By: Dr. Zelaya on 06-27-2022 Lymphocytes/100 WBC (Bld) 7.4 % 19-41 [facility] Blood monocytes/100 leukocyt esOrdered By: Dr. Zelaya on 06-27-2022 Monocytes/100 WBC (Bld) 1.9 % 0-10 [facility] Blood platelet mean volumeOr dered By: Dr. Zelaya on 06-27-2022 Platelet mean volume (Bld) [Entitic vol] 10.1 fL 6.2-12.0 [facility] Determination of erythrocyte mean corpuscular volume (MCV)Ordered By: Dr. Zelaya on 06-27-2022 MCV (RBC) [Entitic vol] 85.9 fL 81-99 [facility] Hematocrit Auto (Bld) [Volum e fraction]Ordered By: Dr. Zelaya on 06-27-2022 Hematocrit (Bld) [Volume fraction] 41.3 % 37-47 [facility] Influenza virus A and B and SARS-CoV-2 (COVID-19) Ag panel - Upper respiratory specimOrdered By: Dr. Zelaya on 06-27-2022 SARS-CoV-2 (COVID-19) RNA REBECCA+probe Ql (Resp) [facility] Ketones Test strip Ql (U)Ord ered By: Dr. Zelaya on 06-27-2022 Ketones Ql (U) 150 mg/dl Negative [facility] Comment on above: CRITICAL VALUE *H Laboratory - Chemistry and C hemistry - challengeOrdered By: Dr. Zelaya on 06-27-2022 ALP [Catalytic activity/Vol] 104 U/L 45-117 [facility] ALT [Catalytic activity/Vol] 26 U/L 13-56 [facility] CO2 [Moles/Vol] 19.0 mmol/L 21.0-32.0 [facility] Globulin (S) [Mass/Vol] 4.0 g/dL 2.2-4.2 [facility] Urea nitrogen/Creatinine [Mass ratio] 17.5 mg/mg 10-20 [facility] - Hematology and Cell countsOrdered By: Dr. Zelaya on 06-27-2022 Erythrocyte distribution width (RBC) [Entitic vol] 36.6 fL 35.1-43.9 [facility] Erythrocyte distribution width (RBC) [Ratio] 11.7 % 11.6-14.6 [facility] Immature granulocytes/100 WBC (Bld) 0.500 % 0.0-0.9 [facility] Comment on above: IG% - Immature Granu locytes (promyelocytes, myelocytes and metamyelocytes) > 1% indicates that a LEFT SHIFT is Present. MCH (RBC) [Entitic mass] 30.4 pg 27.0-32.0 [facility] Nucleated RBC/100 WBC (Bld) [Ratio] 0 % 0-5 [facility] MCHC Auto (RBC) [Mass/Vol]Or dered By: Dr. Zelaya on 06-27-2022 MCHC (RBC) [Mass/Vol] 35.4 g/dL 32-36 [facility] Mucus LM Ql (Urine sed)Order ed By: Dr. Zelaya on 06-27-2022 Mucus Ql (Urine sed) 1+ /hpf [facility] Nitrite Test strip Ql (U)Ord ered By: Dr. Zelaya on 06-27-2022 Nitrite Ql (U) Negative Negative [facility] No Panel InformationOrdered By: Dr. Zelaya on 06-27-2022 Estimated Creatinine Clearance Calc 88.79 ml/min [facility] Estimated GFR (MDRD) Amer 108 mL/min >60 [facility] Comment on above: GFR Calc Estimated GFR (MDRD) Non-Af Amer 89 mL/min >60 [facility] Comment on above: Non- GFR Calc Platelets bldOrdered By: Dr. Zelaya on 06-27-2022 Platelets (Bld) [#/Vol] 355 10*3/uL 150-450 [facility] Protein Test strip Ql (U)Ord ered By: Dr. Zelaya on 06-27-2022 Protein Ql (U) 30 mg/dl Negative [facility] Serum or plasma albumin chun urement (mass/volume)Ordered By: Dr. Zelaya on 06-27-2022 Albumin [Mass/Vol] 4.1 g/dL 3.2-5.0 [facility] Serum or plasma albumin/glob ulin mass ratioOrdered By: Dr. Zelaya on 06-27-2022 Albumin/Globulin [Mass ratio] 1.0 {ratio} 0.9-2.4 [facility] Serum or plasma calcium chun urement (mass/volume)Ordered By: Dr. Zelaya on 06-27-2022 Calcium [Mass/Vol] 9.8 mg/dL 8.5-10.1 [facility] Serum or plasma creatinine m easurement (mass/volume)Ordered By: Dr. Zelaya on 06-27-2022 Creatinine [Mass/Vol] 0.80 mg/dL 0.55-1.02 [facility] Comment on above: The validity of the calculated GFR & GFRAA in patients over 70 years has not been determined. Clinical correlation is essential. Serum or plasma urea nitroge n measurement (mass/volume)Ordered By: Dr. Zelaya on 06-27-2022 Urea nitrogen [Mass/Vol] 14 mg/dL 7-18 [facility] Squamous epithelial cells de tection in urine sediment by light microscopyOrdered By: Dr. Zelaya on 06-27-2022 Epithelial cells.squamous LM Ql (Urine sed) 0-5 SEEN /hpf 5-10 [facility] Thin prep Papanicolaou smear with manual screeningOrdered By: Dr. Zelaya on 06-27-2022 Thin prep Papanicolaou smear with manual screening 13 U/L 15-37 [facility] Thin prep Papanicolaou smear with manual screening 13 5-15 [facility] Urine blood detectionOrdered By: Dr. Zelaya on 06-27-2022 RBC Ql (U) 10 /ul Negative [facility] RBC Ql (U) 0 SEEN /hpf 0-5 [facility] Urine clarityOrdered By: Dr. Zelaya on 06-27-2022 Clarity (U) Clear Clear [facility] Urine color determinationOrd ered By: Dr. Zelaya on 06-27-2022 Color (U) Yellow Yellow [facility] Urine glucose detectionOrder ed By: Dr. Zelaya on 06-27-2022 Glucose Ql (U) Normal mg/dl Normal [facility] Urine leukocyte esterase det ection by dipstickOrdered By: Dr. Zelaya on 06-27-2022 Leukocyte esterase Test strip Ql (U) 25 /ul Negative [facility] Urine pHOrdered By: Dr. Nicki kaiser on 06-27-2022 pH (U) 8.0 [pH] 5.0 - 8.0 [facility] Urine sediment bacteria coun t by microscopy (number/high power field)Ordered By: Dr. Zelaya on 06-27-2022 Bacteria LM.HPF (Urine sed) [#/Area] 0 /[HPF] None Seen [facility] Urine specific gravity measu rementOrdered By: Dr. Zelaya on 06-27-2022 Specific gravity (U) [Rel density] 1.015 1.002-1.030 [facility] Urobilinogen Auto test strip Ql (U)Ordered By: Dr. Zelaya on 06-27-2022 Urobilinogen Ql (U) Normal mg/dl Normal [facility] Vital Signs Date Time Vital Sign Value Performing Clinician Faci lity 06-27-2022 13:34-0500 Respiratory rate 16 /min [facility] 06-27-2022 08:10-0500 Body height 162.56 cm [facility] 06-27-2022 08:10-0500 Body mass index (BMI) [Ratio] 34.5 kg/m2 [facility] 06-27-2022 08:10-0500 Body temperature 96 [degF] [facility] 06-27-2022 08:10-0500 Body weight 91.4 kg [facility] 06-27-2022 08:10-0500 Diastolic blood pressure 79 mm[Hg] [facility] 06-27-2022 08:10-0500 Heart rate 74 /min [facility] 06-27-2022 08:10-0500 SaO2% (BldA) [Mass fraction] 100 % [facility] 06-27-2022 08:10-0500 Systolic blood pressure 120 mm[Hg] [facility] Encounters Encounter Date Encounter Type Care Provider Facility Start: 04-08-2024 Encounter for other preprocedural examination [facility] Start: 04-01-2024 End: 04-01-2024 ambulatory Jerrell Segundo Facility:[facility] Start: 03-22-2024 End: 03-22-2024 Emergency department patient visit Obie Meneses Facility:[facility] Start: 03-18-2024 ambulatory [facility] y:PRIYA Start: 03-18-2024 End: 03-18-2024 ambulatory [facility] Facility:[facility] Start: 03-10-2024 End: 03-10-2024 ambulatory Jerrell Segundo Facility:[facility] Start: 03-10-2024 End: 03-10-2024 ambulatory [facility] Facility:[facility] Start: 03-03-2024 End: 03-03-2024 ambulatory Jerrell Segundo Facility:[facility] Start: 03-02-2024 End: 03-02-2024 ambulatory Jerrell Sanya Facility:[facility] Start: 01-30-2024 End: 01-30-2024 ambulatory Jerrellbasil Segundo Facility:[facility] Start: 01-28-2024 End: 01-28-2024 ambulatory Jerrell Segundo Facility:[facility] Start: 01-27-2024 End: 01-27-2024 ambulatory Jerrell Segundo Facility:[facility] Start: 01-26-2024 End: 01-26-2024 Emergency department patient visit Jerrell Segundo Facility:[facility] Start: 01-23-2024 End: 01-23-2024 Emergency department patient visit Obie [place] Facility:[facility] Start: 01-12-2024 Encounter for gynecological examination (general) (routine) [facility] Start: 12-24-2023 End: 12-24-2023 Subsequent hospital visit by physician Teo Exam Room 1 [facility] Comment on above: Unspecified lump in unspecified breast Start: 12-24-2023 End: 12-24-20[facility] Start: 12-18-2023 End: 12-18-2023 ambulatory Jerrell Sanya Facility:[facility] Start: 12-18-2023 End: 12-18-2023 ambulatory Mariana Heard Facility:[facility] Start: 07-03-2022 End: 07-03-2022 ambulatory [facility] Work Phone: Start: 07-03-2022 End: 07-03-2022 Patient encounter procedure [facility] Start: 06-27-2022 End: 06-27-2022 Emergency department patient visit [facility] Procedures Date Procedure Procedure Detail Performing Clinician Start: 12-24-2023 Us breast uni real t uzma with image limited Mariana Haerd Work Phone: Start: 12-24-2023 Diagnostic mammograp hy computer-aided detcj bi Mariana Heard Work Phone: Start: 06-27-2022 Computed tomography of abdomen and pelvis with contrast SARS-CoV-2 & FLU Ant igen (Rapid) Plan of Treatment Date Care Activity Detail Author Start: 2052 RSV Immunization aged 60 or older (1 - 1-dose 60+ series) RSV Immunization aged 60 or older (1 - 1-dose 60+ series) [facility] Start: 01-04-2042 Zoster Vaccines (1 of 2) Zoster Vaccines (1 of 2) [facility] Start: 02-09-2032 DTaP/Tdap/Td Vaccines (7 - Td or Tdap) DTaP/Tdap/Td Vaccines (7 - Td or Tdap) [facility] Start: 01-19-2024 Influenza vaccination Influenza Vaccine (#1) [facility] Start: 01-18-2023 COVID-19 Vaccine ( season) COVID-19 Vaccine ( season) [facility] Start: 01-04-2022 Screening for malignant neoplasm of cervix [facility] Start: 01-04-2013 Screening for malignant neoplasm of cervix Pap Smear [facility] Start: 01-04-2010 Hepatitis C screening Hepatitis C Screening [facility] Start: 01-24-2005 Varicella vaccination Varicella Vaccines (1 of 2 - 13+ 2-dose series) [facility] Start: 2004 Depression Screening Depression Screening [facility] Start: 1992 HIV screening HIV Screening [facility] Start: 1992 Lipid panel Lipid Panel [facility] Patient Education ED Vomiting (Adult) [facility] Work Phone: Patient referral [facility] Work Phone: Immunizations Immunization Date Immunization Notes Care Provider Fa cility 03-10-2021 influenza, seasonal, injectable [facility] 03-10-2021 influenza virus vacc ine, unspecified formulation Ach 4 [facility] 06-21-2020 Covid (Moderna) [facility] 05-24-2020 Covid (Moderna) [facility] 02-14-2020 influenza, seasonal, injectable [facility] 10-08-2019 hepatitis B vaccine, adult dosage [facility] 09-03-2019 hepatitis B vaccine, adult dosage [facility] 08-12-2019 influenza, seasonal, injectable [facility] Payers Date Payer Category Payer Self-pay [id number] 2023 Private Health Insurance [facility] [id number] 2023-Present [address] [place] [address] Commercial [id number] 2023 Private Health Insurance [id number] Unknown [id number] Unknown [id number] [id number]. 2.462 Unknown [id number] 2.16.840.1.252794.3.579. 2.462 Unknown [id number] 2.16.840.1.920043.3.579. 2.462 Unknown [id number] 2.16.840.1.148034.3.579. 2.462 Unknown [id number] 2.16.840.1.103838.3.579. 2.462 Unknown [id number] 2.16.840.1.887532.3.579. 2.462 Unknown [id number] 2.16.840.1.124255.3.579. 2.462 Unknown [id number] 2.16.840.1.234289.3.579. 2.462 Unknown [id number] 2.16.840.1.922258.3.579. 2.462 Unknown [id number] 2.16.840.1.950999.3.579. 2.462 Unknown [id number] 2.16.840.1.073112.3.579. 2.462 Unknown [id number] 2.16.840.1.014810.3.579. 2.462 Unknown [id number] 2.840.1.114025.3.579. 2.462 Unknown [id number] 2.0.1.388661.3.579. 2.462 Unknown [id number] 2.16840.1.484430.3.579. 2.462 Unknown [id number] 2.0.1.957866.3.579. 2.462 Social History Date Type Detail Facility Start: 06-27-2022 Tobacco smoking status SDIS Unknown if ever smoked [facility] Start: 1990 Sex Assigned At Female [facility] Start: 12-24-2023 Tobacco smoking status SDIS Never smoked tobacco [facility] Start: 12-24-2023 Tobacco use and exposure Smokeless tobacco non-user [facility] Start: 1990 Sex assigned at Not on file [facility] Gender identity Not on file [facility] NEGATED: Highlighted row [facility] Clinical Note 03-18-2024 Note Date & Type Note Facility 03-18-2024 Note [facility] Medical Records Department [address] [place] [id number] History Physical Exam 03/18/24 0709 MR#: [id number] Acct: [id number] Name: MAYCOLMOSHE Shey Rep #: [id number] : 1990 34 From: Jillian Martin MD PCP: Dr. Jerrell Segundo MD Status:[facility] Location: [place] [address] History and Physical Date of Admission: 03/18/24 Date of Service: 03/10/24 MR#: [id number] Acct: [id number] Name: MOSHE SEVERINO Rep #: [id number] : 1990 Provider: Dr. Jillian Martin MD Age/Sex: 34/F Location: [facility] Status: Signed Intake Vital Signs 03/06/2408:54 03/10/2413:44 Height 5 ft 4 in 5 ft 4 in Weight: 202 lb BMI 34.7 BP 123/78 H Blood Pressure Location Rt brachial Position Sitting Respiration 16 Intake Visit Reasons: ABDOMINAL HIDA Chief Complaint: gallbladder issues Tenant Coordinator Required: No Is patient in pain?: Yes (RUQ abd) Pain scale (1-10): 3 Allergies No Known Allergies Allergy (Verified 03/10/24 13:45) Medications ???Medication ???Instructions ???Recorded ???Confirmed ???Type escitalopram oxalate 10 mg tablet 15 mg PO DAILY 12/18/23 03/10/24 History ondansetron 4 mg disintegrating 4 mg PO Q8H PRN PRN Nausea #10 tabs 01/23/24 03/10/24 Rx tablet promethazine 25 mg tablet 25 mg PO Q6H PRN PRN Nausea #10 01/26/24 03/10/24 Rx TABLETS Have you fallen in the past year?: No PFSH Medical History (Updated 03/11/24 @ 15:[address] 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[employer] current occupational exposures/hazards: No pets and animals: Yes pets and animals: cat(s) and dog(s) history of recent travel: No sexually active: Yes Smoking Status: Never smoker alcohol intake: current alcohol intake frequency: holidays/special occasions only Alcohol type: hard liquor substance use type: marijuana well-balanced diet: about half the time caffeine: Yes Type: coffee Number of servings: 2 eating out: rarely or never giancarlo/jainism: Sikh seatbelt use: always do you feel safe at home: Yes 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, [employer] Female Reproductive History Menstrual Ab spontaneous: 1 HPI HPI HPI: 34-year-old female presents due to 2 months of right upper quadrant pain. Patient currently rates the pain about a 3/10. Patient states she gets pain after eating typically at about 5 to 10 minutes. Patient had 2 larger episodes 1 in January 1 in February. Patient had sludge noted on her gallbladder ultrasound. Patient also had a HIDA scan that showed a 0% ejection fraction and also reproduce the pain. Patient's denies any reflux history or symptoms. Patient did previously have a slight elevation of AST and ALT in early/mid January as well as white blood count 12.4 in mid February. Patient states she is eating a bland diet but is able to eat and drink. ROS General General: No weight change, appetite, fatigue, colon cancer or breast cancer HEENT HEENT: No difficulty swallowing, eye injury, eye surgery, swollen glands or hoarseness Endo Endocrine: No thyroid disease, diabetes mellitus, thyroid cancer, Hair loss, heat intolerance or cold intolerance Skin Skin: No rash or changing moles Musc Musculoskeletal: No back problems, arthritis, rheumatoid arthritis, gout or joint pain Cardio Cardiovascular: No murmur, pacemaker, heart disease, atrial fibrillation, high blood pressure, heart attack, heart stent, palpitations, shortness of breat with exertion or chest pain Psych Psychiatric: No depression, anxiety or hearing voices Resp Respiratory: No shortness of breath, No sleep apnea, No cough, No COPD, No asthma, No emphysema and No wheezing Gastro Gastrointestinal: Yes abdominal pain, Yes nausea or vomiting, No diarrhea, No constipation, No blood in stool, No acid reflux, No hemorrhoids, No ulcers, Yes gallbladder problem and No black,tarry stools Mika Hematologic: No blood thinners, No blood disorders, No bleeding, No anemia and No blood clots Neuro Neurologic: No numbness and No tingling Exam Const General: cooperative, healthy appearing, comfortable and no acute distress EDITAWV Peggy (more content not included)... [facility] Discharge summary 06-27-2022 Note Date & Type Note Facility 06-27-2022 Discharge summary Note Date/Time June 27, 2022 9:36am [facility] Medical Records Department [address] [place] [address] Emergency Department Summary 06/27/22 MR#: [id number] Acct: [id number] Name: MOSHE SEVERINO Rep #:[id number] : 1990 32 From: Jerrell Larsen PCP: Dr. Jerrell Segundo MD Status:DEP ER Location: ED HPI HPI - GI History of Present Illness Chief Complaint: Nausea/Vomiting Informant: patient Nausea/Vomiting/Emesis GI Symptom: Positive for Nausea and Vomiting Onset: Yesterday Quality: Negative for Blood streaks, Coffee ground or Hematemesis Severity: Severe Diarrhea/Melena/Hematochezia GI Symptom: Positive for Diarrhea; Negative for Melena or Hematochezia Associated Symptoms Associated Symptoms: Negative for Dysuria, Frequency or Hematuria LMP: 1-1/2 weeks ago Narrative Narrative: Patient presents with nausea, vomiting, and diarrhea that began yesterday evening. Patient states it became worse today. Patient states she is unable tokeep anything down. Patient denies any hematemesis or coffee-ground emesis. Patient admits to some diarrhea. Patient states that he was just 1 episode of watery diarrhea. Patient denies any dysuria or hematuria. Patient denies any melena or hematochezia. Patient states her last menstrual period was a week rajan half ago. Patient denies any abdominal pain. Patient states she has some muscle cramping from being dehydrated. [facility] Medical History Acute sinusitis, unspecified Diarrhea Fatigue Home Medications cholecalciferol (vitamin D3) 50 mcg (2,000 unit) capsule 2,000 unit PO DAILY 03/03/19 [History Last Taken Unknown] fluoxetine 20 mg capsule cap PO 08/10/21 [History Last Taken Unknown] Allergy/AdvReac Type Severity Reaction Status Date / Time No Known Allergies Allergy Verified 08/10/21 13:08 Social History Smoking Status: Never smoker ROS ROS ED Constitutional Constitutional ED: Denies chills or fever(s) Eyes Eyes: Denies blurry vision or change in vision ENT ENT ED: Denies rhinorrhea or sore throat Cardiovascular Cardiovascular: Denies chest pain or palpitations Respiratory/Chest Respiratory/Chest: Denies cough or dyspnea Gastrointestinal Gastrointestinal: Reports diarrhea, nausea and vomiting; Denies abdominal pain or melena Genitourinary Genitourinary ED: Denies dysuria or hematuria Musculoskeletal Musculoskeletal: Denies back pain or neck pain Integumentary Denies abscess or rash Neurologic Neurologic: Denies headache(s) or weakness Allergic/Immunologic Allergic/Immunologic ED: Denies mouth swelling or urticaria EXAM Physical Exam Const Vital Signs: 06/27/22 08:10 Temperature 96.0 F L Temperature Source Temporal Pulse Rate 74 Respiratory Rate 14 Blood Pressure 120/79 Blood Pressure Mean 92 Pulse Ox 100 Oxygen Delivery Method Room Air Positive well nourished, well developed and obese General Appearance ED: well developed and NAD Nutritional Appearance: obese HEENT Reports moist mucous membranes Neck supple and no JVD Resp normal respiratory effort and clear to auscultation bilaterally Cardio regular rate, regular rhythm and no murmurs GI normal to inspection, nondistended, normoactive bowel sounds Palpation: soft and tender epigastric, LLQ, RLQ, LUQ, RUQ, periumbilical and suprapubic; Negative for guarding or rebound tenderness present Extremity normal to inspection General Extremety ED: Negative for edema or tenderness General Extremity: Negative for edema Neuro oriented x3, CN's II-XII intact bilaterally and no sensory deficits noted Sensorium / Orientation: alert Motor Exam: strength 5/5 throughout Psych mental status grossly normal Skin no rashes or lesions noted MDM MDM MDM Narrative Medical decision making narrative: Differential diagnosis includes gastroenteritis, bowel obstruction, , ectopic , ovarian cyst, ovarian torsion, colitis, enteritis, urinary tract infection, ureteral lithiasis, COVID-19, and influenza infection. CBC will be obtained to assess for leukocytosis and anemia. Comprehensive metabolicprofile will be obtained to assess for electrolyte abnormality, hepatic function, and renal function. Urinalysis will be obtained to assess for hematuria and urinary tract infection. Serum hCG will be obtained to assess forpregnancy and ectopic . COVID-19 rapid antigen will be obtained to assess for COVID-19 infection. Influenza a and influenza B antigens will be obtained to assess for influenza infection. CT scan of the abdomen pelvis will be obtained to assess for bowel obstruction and perforation. Lab Data Attestation: I reviewed the patient's lab results. Lab results narrative: CBC was reviewed and showed a mild leukocytosis of 15.5. Comprehensive metabolic profile was reviewed and was within normal limits. Serum hCG was reviewed and was negative. Urinalysis was reviewed and does not show any evidence of urinary tract infection or hematuria. Labs: Laboratory Results - last 24 hr 06/27/22 06/27/22 06/27/22 08:30 08:30 08:30 WBC 15.5 H RBC 4.81 Hgb 14.6 Hct 41.3 MCV 85.9 MCH 30.4 MCHC 35.4 RDW Std Deviation 36.6 RDW Coeff of Nish 11.7 Plt Count 355 MPV 10.1 Immature Gran % (Auto) 0.500 Neut % (Auto) 90.1 H Lymph % (Auto) 7.4 L [place] % (Auto) 1.9 Eos % (Auto) 0.0 Baso % (Auto) 0.1 Absolute Neuts (auto) 14.0 H Absolute Lymphs (auto) 1.14 Nucleated RBC % 0 Sodium 138 Potassium 3.5 Chloride 106 Carbon Dioxide 19.0 L Anion Gap 13 BUN 14 Creatinine 0.80 Estim Creat Clear Calc 88.79 Est GFR (MDRD) Af Amer 108 Est GFR (MDRD) Non-Af 89 BUN/Creatinine Ratio 17.5 Glucose 137 H Calcium 9.8 Total Bilirubin 0.80 AST 13 L ALT 26 Alkaline Phosphatase 104 Total Protein 8.1 Albumin 4.1 Globulin 4.0 Albumin/Globulin Ratio 1.0 Serum , Qual NEGATIVE Urine Color Urine Clarity Urine pH Ur Specific [place] Urine Protein Urine Glucose (UA) Urine Ketones Urine Occult Blood Urine Nitrite Urine Bilirubin Urine Urobilinogen Ur Leukocyte Esterase Urine RBC Urine WBC Ur Squamous Epith Cells Urine Bacteria Urine Mucus 06/27/22 09:35 WBC RBC Hgb Hct MCV MCH MCHC RDW Std Deviation RDW Coeff of Nish Plt Count MPV Immature Gran % (Auto) Neut % (Auto) Lymph % (Auto) [place] % (Auto) Eos % (Auto) Baso % (Auto) Absolute Neuts (auto) Absolute Lymphs (auto) Nucleated RBC % Sodium Potassium Chloride Carbon Dioxide Anion Gap BUN Creatinine Estim Creat Clear Calc Est GFR (MDRD) Af Amer Est GFR (MDRD) Non-Af BUN/Creatinine Ratio Glucose Calcium Total Bilirubin AST ALT Alkaline Phosphatase Total Protein Albumin Globulin Albumin/Globulin Ratio Serum , Qual Urine Color Yellow Urine Clarity Clear Urine pH 8.0 Ur Specific [place] 1.015 Urine Protein 30 H Urine Glucose (UA) Normal Urine Ketones 150 A* Urine Occult Blood 10 H Urine Nitrite Negative Urine Bilirubin Negative Urine Urobilinogen Normal Ur Leukocyte Esterase 25 H Urine RBC 0 SEEN Urine WBC 0-5 SEEN Ur Squamous Epith Cells 0-5 SEEN Urine Bacteria 0 SEEN Urine Mucus 1+ Radiography Diagnostic Testing: Clinical Impression(s) from Imaging Studies Abdomen/Pelvis CT 06/27/22 09:48 IMPRESSION: 2.4 cm cyst in the right ovary. Electronically Signed: Shree Rain MD at 12:09 EST , CT scan of the abdomen pelvis was reviewed. On my independent interpretation, there is no evidence of perforation or obstruction. There is no free air or free fluid. There is no hydronephrosis or ureteral calculus. Radiologist also interpreted the CT scan and noted 18.4 cm cyst in the right ovary. Treatment and Re-Evaluation Narrative: Patient was given IV fluids and Zofran. Patient is feeling better on reevaluation. Patient was advised of her findings. Patient was instructed to start with small amounts of fluids more frequently. Patient was instructed to advanceto a bland diet and then to a regular diet if she feels better. Patient stated she would take [id number] antiemetics and does not want a prescription forantiemetics at this time. Patient was instructed return if worse in any way. Patient understands and is agreeable with the plan. All questions were answered. Discharge Plan Triage Chief Complaint: Nausea/Vomiting ED Provider: Jerrell Zelaya Dx/Rx/DC Orders Clinical Impression: Nausea and vomiting, Obesity (BMI 30.0-34.9) Instructions: ED Vomiting (Adult) Prescriptions: No Action fluoxetine 20 mg capsule PO cholecalciferol (vitamin D3) 2,000 UNIT capsule 2,000 unit PO DAILY Primary Care Provider: Jerrell Segundo Referrals: Jerrell Segundo MD [Primary Care Provider] - 5-7 Days Disposition Disposition: Home, Self Care What to do if you have Problems For any increased pain, shortness of breath, bleeding, nausea or vomiting, chestpain, or any unexpected problems, contact your Primary Care Provider. Call [facility] ([phone]) or report to the closest Emergency Room. Call 911 if necessary. 06/27/22 1608 <Electronically signed by Jerrell Zelaya DO> Cosigner Signature (if applicable): CC: Dr. Jerrell Segundo MD ~ Signed [facility] Work Phone: Evaluation note Note Date & Type Note Facility Evaluation note No assessment information availa [facility] Work Phone: Evaluation note Note Date & Type Note Facility Evaluation note Diagnosis Unspecified lump in unspecified breast documented in this encounter [facility] Advance Directives No Advanced Directives Records Found Advance Directive Response Recorded Date/ Time Living Will No June 27 9:52am Power of [employer] Logger No June 27, 2022 9:52am Summary Purpose Family History No Family History Records FoundNo Family History Records Found Additional Source Comments Care Teams (unrecognized sec tion and content) Team Status: Active Member Role Status Dates Dr. Jerrell Segundo MD Primary Care Provider Active Team Status: Inactive Member Role Status Dates Dr. Jerrell Segundo MD Primary Care Provider Active Dr. Jerrell Zelaya DO Emergency Provider Active Team Status: Inactive Member Role Status Dates Dr. Jerrell Segundo MD Primary Care Provider Active Dr. Jerrell Zelaya DO Attending Provider, Emergency P rovider Active Team Status: Inactive Member Role Status Dates Dr. Jerrell Segundo MD Primary Care Provide r, Attending Provider, Referring Provider Active Goals (unrecognized section and content) Goals may be documented in a n alternate sectionGoals may be documented in an alternate section INFORMATION SOURCE (unrecogn ized section and content) DATE CREATED AUTHOR 12/26/2023 [facility] DATE CREATED AUTHOR AUTHOR'S ORGANIZ ATION 04/11/2024 [facility] FOR RECORDS PERTAINING TO PATIENTS WHO ARE [...] BE BASED ON THE PRIMARY CLINICAL RECORDS. [employer] provides no warranty or guarantee of the accuracy or completeness of information in this document.
== END 2024-11-06 14:59 | disposition home or self-care (01) ==
PROVIDERS: Emergency Provider Emergency Medicine; PCP Family Medicine; Visit Provider Emergency Medicine
DX: F32.A Depression, unspecified (principal); R45.4 Irritability and anger; R45.851 Suicidal ideations; F41.9 Anxiety disorder, unspecified; Z79.899 Other long term (current) drug therapy
CPT/HCPCS: 80048; 80053; 80307; 82077; 84703; 85025; 99283